=== PATIENT | male | born 1950 | race Caucasian/White ===

== ENCOUNTER 2020-05-28 11:22 | Observation (INO) | payer OTHER, SELFPAY ==
[2020-05-28] VITALS (7 sets, daily range): BP systolic 111–142; BP diastolic 67–95; PULSE 60–80; RESP 18–21; TEMP 36.2–37.1; O2SAT 20–100; BMI 32.4
--- NOTE | ~2020-05-28 | XR_ITS ---
EXAMINATION: XR chest 1V portable DATE: 05/29/2020 06:13 INDICATION: Right-sided pneumothorax. TECHNIQUE: A single frontal view of the chest was obtained. COMPARISON: Chest CT 05/28/2020 FINDINGS: There is mild atelectasis at right lung base. No pleural effusion or pneumothorax. The hear t size is normal. There is an electronic implant in left anterior chest wall. There are changes of an terior fusion procedure in cervical spine. There is a total left shoulder arthroplasty. Again seen is a right seventh rib fracture. IMPRESSION: 1. Mild atelectasis at right lung base. 2. Right seventh rib fracture. Reviewed, dictated and finalized at location A.
--- NOTE | ~2020-05-28 | XR_ITS ---
EXAMINATION: [id number] INDICATION: Right-sided pain after fall, initial encounter TECHNIQUE: A frontal view of the chest and 3 views of the right ribs were obtained. COMPARISON: None. FINDINGS: The lungs are free of acute opacities. There is no pleural effusion or pneumothorax. The he art size is upper limits of normal for technique. A cardiac monitoring device is implanted in the ant erior subcutaneous tissues of the left chest wall. There are acute fractures of the right seventh and eighth ribs. 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 There are changes of l eft shoulder arthroplasty. Also noted are partially imaged changes of thoracic through sacral fusion. IMPRESSION: 1. Acute fractures of the right seventh and eighth ribs. 2. No acute cardiopulmonary abnormality. Reviewed, dictated and finalized at location A.
--- NOTE | ~2020-05-28 | CT_ITS ---
EXAMINATION: CT chest abdomen pelvis w con DATE: 05/28/2020 13:04 INDICATION: Right-sided chest back pain after fall TECHNIQUE: Transaxial computed tomographic images of the chest, abdomen, and pelvis were obtained aft er the administration of 100 cc of Omnipaque 350 intravenous contrast. The dose-length product (DLP) was 1469.80 mGy-cm. Automated exposure control and iterative reconstruction technique were employed. COMPARISON: None FINDINGS: CHEST CT: The lungs are free of focal airspace opacities. There is mild dependent atelectasis. Trace pleural ef fusions are present. There is a small right-sided pneumothorax. No pathologically enlarged thoracic l ymph nodes are identified. The heart size is normal. Calcified pulmonary nodules are consistent with old granulomatous disease. The thoracic aorta is normal without dissection or aneurysm. There are fra ctures at the anterior aspect of the right seventh through ninth ribs. ABDOMEN/PELVIS CT: The gallbladder is surgically absent. Punctate calcifications in an otherwise normal spleen likely re present healed granulomatous disease. The liver, pancreas, and adrenal glands are normal. Cysts of th e kidneys measure up to 5.6 cm on the right. No pathologically enlarged abdominal or pelvic lymph nod es are identified. There is no free intraperitoneal gas or evidence of bowel obstruction. There is a left inguinal hernia containing a short segment of nonobstructed sigmoid colon. There are changes of posterior fusion procedure from T11 through the sacrum. Bilateral hip arthroplasties are also noted. IMPRESSION: 1. Right seventh through ninth rib fractures with small right-sided pneumothorax. These findings were discussed with TONE Kelly in the Emergency Department at 1329 hours on 05/28/2020. 2. Left inguinal hernia containing a short segment of nonobstructed sigmoid colon. Reviewed, dictated and finalized at location A. IMPRESSION: 1. Right seventh through ninth rib fractures with small right-sided pneumothora x. These findings were discussed with TONE Kelly in the Emergency Depart ment at 1329 hours on 05/28/2020. 2. Left inguinal hernia containing a short segment of nonobstructed sigmoid col on.
--- NOTE | ~2020-05-28 | XR_ITS ---
EXAMINATION: XR chest 1V portable DATE: 05/30/2020 15:56 INDICATION: Follow-up pneumothorax TECHNIQUE: frontal view of the chest was obtained. COMPARISON: Chest radiograph dated 05/30/2020 at 5:49 AM FINDINGS: No evident residual pneumothorax. Minimal right basilar atelectasis. No pleural effusion. The cardiom ediastinal silhouette is normal. Left pectoral implantable air sampling and monitoring. Severe right glenohumeral osteoarthritis and incompletely visualized reverse left total shoulder arthroplasty. Bilateral verti james paz and pedicle screw fixation for posterior spinal fusion beginning the lower thoracic spine and extending into the lumbar spine beyond the inferior margin of the [id number]-gv-ponr. IMPRESSION: 1. Mild right basilar atelectasis. No discernible residual pneumothorax. Reviewed, dictated and finalized at location A.
--- NOTE | ~2020-05-28 | XR_ITS ---
EXAMINATION: XR chest 1V portable DATE: 05/31/2020 06:36 INDICATION: Right pneumothorax. TECHNIQUE: A single frontal view of the chest was obtained. COMPARISON: Chest single view 05/30/2020 FINDINGS: The lung volumes are small. There is mild atelectasis in right mid and lower lung zones. Re lative lucency adjacent to the mediastinum on the right is likely a tiny right pneumothorax. No pleur al effusion. The heart size is normal. There is an electronic implant in left anterior chest wall. Th ere is a left shoulder arthroplasty. There are changes of posterior fusion procedure in lumbar spine. IMPRESSION: 1. Tiny right pneumothorax. 2. Small lung volumes mild atelectasis in right mid and lower lung zones. Reviewed, dictated and finalized at location A.
--- NOTE | ~2020-05-28 | XR_ITS ---
EXAMINATION: XR chest 1V portable DATE: 05/30/2020 06:15 INDICATION: Right-sided pneumothorax. TECHNIQUE: A single frontal view of the chest was obtained. COMPARISON: Chest single view 05/29/2020 FINDINGS: There is a tiny right pneumothorax adjacent to the mediastinum. Calcified bilateral lung no dules are consistent with old granulomatous disease. There is mild atelectasis at right lung base. No pleural effusion. The heart size is normal. An electronic implant overlies left chest wall. There is a left shoulder arthroplasty. There are changes of posterior fusion procedure in lumbar spine. Again seen is a fracture of right seventh rib. There are changes of anterior fusion procedure in the cervi james spine. IMPRESSION: 1. Tiny right pneumothorax. 2. Mild atelectasis at right lung base. 3. Right seventh rib fracture. Reviewed, dictated and finalized at location A.
--- NOTE | 2020-05-28 11:40 | ECG_ITS ---
Measurements Intervals [place] Rate: 61 P: 28 WA: 184 QRS: -60 QRSD: 97 T: 29 QT: 383 QTc: 389 Interpretive Statements SINUS RHYTHM LEFT AXIS DEVIATION LOW QRS VOLTAGE IN LIMB LEADS BORDERLINE T WAVE ABNORMALITY- INFERIOR LEADS BASELINE ARTIFACT- I, II, III, AVR, AVL, AVF, V1-V6 BORDERLINE ECG Electronically Signed On 05-28-2020 12:05:32 CDT by Eloy Masters D.O.
[2020-05-28 11:58] LABS: Basophils Percent Auto 0.5 % (0.2-1.2); Eosinophils Percent Auto 0.5 % (0-4.4); Hemoglobin 11.6 g/dL (14.0-18.0); Immature Granulocyte Absolute 0.03 K/mm3 (0.00-0.031); Immature Granulocyte Percent A 0.4 % (0-0.5); Lymphocytes Absolute Auto 1.13 K/mm3 (0.9-3.2); Lymphocytes Percent Auto 13.4 % (18.3-44.2); Mean Corpuscular HGB Conc 30.5 g/dl (32-36); Mean Corpuscular Hemoglobin 22.1 pg (26-34); Mean Corpuscular Volume 72.2 fl (80-100); Mean Platelet Volume 10.2 fl (7.4-10.4); Monocytes Absolute Auto 0.9 K/mm3 (0.1-0.6); Monocytes Percent Auto 10.4 % (2.6-8.5); Neutrophils Absolute Auto 6.3 K/mm3 (1.3-6.7); Neutrophils Percent Auto 74.8 % (45.5-73.1); Platelet Count Result 264 k/mm3 (150-375); Red Blood Count 5.26 M/mm3 (4.6-6.20); White Blood Count 8.5 K/mm3 (4.5-10.0)
[2020-05-28 12:13] LABS: Alanine Aminotransferase 32 U/L (4-50); Albumin Level 4.3 g/dL (3.5-5.1); Alkaline Phosphatase 85 U/L (38-126); Anion Gap 5 mmol/L (8-16); Aspartate Amino Transferase 64 U/L (17-59); Bilirubin,Total 3.5 mg/dL (0.2-1.3); Blood Urea Nitrogen 15 mg/dL (9-20); Calcium 8.7 mg/dL (8.4-10.2); Carbon Dioxide 26 mmol/L (22-30); Chloride 104 mmol/L (98-107); Estimated CRCL calculation 87 ml/min; Estimated Glomerular Filt Rate > 60; Glucose 90 mg/dL (75-110); Potassium 6.4 mmol/L (3.4-5.0); Sodium 135 mmol/L (137-145)
[2020-05-28] MEDS: SODIUM CHLORIDE 0.9% IV 1,000 ML 999 ML IV CONT (12:31)
--- NOTE | 2020-05-28 12:52 | ED.FALL ---
HPI - Fall General Chief Complaint: Fall <KRYSTIN Lipscomb Last Filed: 05/28/20 14:02> Stated Complaint: fall <KRYSTIN Lipscomb Last Filed: 05/28/20 14:02> Time Seen by Provider: 05/28/20 11:55 <KRYSTIN Lipscomb Last Filed: 05/28/20 14:02> Source: patient and family <KRYSTIN Lipscomb Last Filed: 05/28/20 14:02> Mode of arrival: ambulatory <KRYSTIN Lipscomb Last Filed: 05/28/20 14:02> Limitations: no limitations <KRYSTIN Lipscomb Last Filed: 05/28/20 14:02> History of Present Illness HPI Narrative: Patient is a 69-year-old male who presents to emergency department for evaluation of injury to the right chest and abdomen that occurred last night patient got up at 2 AM in the morning to use the restroom and while turning around lost his balance falling into the bathtub injuring the right anterior lateral lower ribs and upper abdomen where he has moderate aching pain worse with activity and movement patient also notes mild pain to the right hip. Patient notes he was able to get up and return to bed. Patient is currently on Eliquis for atrial fibrillation. Patient denies any head injury syncope loss of consciousness. Patient took his home narcotics with some relief. Patient on arrival in the room in no distress <KRYSTIN Lipscomb Last Filed: 05/28/20 14:02> Related Data Home Medications: Home Medications Medication Instructions Recorded Confirmed apixaban [Eliquis] 5 mg PO DAILY 05/28/20 duloxetine 60 mg PO DAILY 05/28/20 pravastatin 20 mg PO DAILY 05/28/20 sotalol 80 mg PO DAILY 05/28/20 zolpidem 10 mg PO DAILY 05/28/20 <KRYSTIN Lipscomb Last Filed: 05/28/20 14:02> Allergies/Adverse Reactions: Allergies Allergy/AdvReac Type Severity Reaction Status Date / Time ketamine AdvReac Severe Other Verified 05/28/20 11:43 <KRYSTIN Lipscomb Last Filed: 05/28/20 14:02> Review of Systems Review of Systems: All systems reviewed & are unremarkable except as noted in HPI and below <Piotr Pardo PA-C - Last Filed: 05/28/20 14:02> [facility] Past Medical History Medical History: Medical History Atrial fibrillation <Piotr Pardo PA-C - Last Filed: 05/28/20 14:02> Social History Social History: Social History (Updated 05/28/20 @ 12:53 by Piotr Pardo PA-C) Smoking status: Never smoker <Piotr Pardo PA-C - Last Filed: 05/28/20 14:02> Exam Narrative: Exam Narrative: GENERAL: Well-appearing, well-nourished, and in no acute distress. HEAD: Normocephalic, atraumatic. EYES: PERRLA and EOMI. ENT: Nares clear, no rhinorrhea or epistaxis. Mucous membranes moist. NECK: Supple. No adenopathy or masses. CHEST: Clear to auscultation. No respiratory distress. No wheezes rales or rhonchi. Tenderness of the anterior lateral ribs no bruising noted HEART: Regular rate and rhythm. No murmur heard. Normal peripheral pulses. ABDOMEN: Soft, right upper quadrant tenderness to palpation no bruising, nondistended EXTREMITIES: Normal range of motion. No edema. Mild tenderness to the right hip. No midline cervical thoracic or lumbar tenderness SKIN: Warm, dry, no rash. NEURO: No focal deficits. Alert and oriented x3. Cranial nerves II through XII grossly intact. Neurovascularly intact PSYCH: Normal mood and affect. <Piotr Pardo PA-C - Last Filed: 05/28/20 14:02> Course Course Emergency Course: Patient in the room at this time, hemodynamically stable will be placed in hospital with surgical consult for small pneumothorax with associated rib fractures. Patient has been given pain medication and is aware of case findings treatment plan and diagnosis <Piotr Pardo PA-C - Last Filed: 05/28/20 14:02> TRANSPORT RN/PA Physician Supervision Attestation for Piotr Pardo at 1400. We discussed the case and the patient
[2020-05-28 12:54] LABS: Creatine Kinase 179 U/L (55-170); Magnesium 2.1 mg/dL (1.6-2.3); Phosphorus 2.9 mg/dL (2.5-4.5)
[2020-05-28] MEDS: SODIUM CHLORIDE 0.9% IV 500 ML 999 ML IV CONT (14:44)
--- NOTE | 2020-05-28 15:15 | ADMGEN ---
This patient, Laz Gunn, was admitted to Medical Room 249-01. Patient/family oriented to hospital policies and general routines including ID bracelet, bed and alarms, visiting hours, pain management, procedures, bathroom and other care routines, personal items, smoking policy, room service/diet, and visiting hours. Valuables list has been completed. Information on how to activate the Rapid Response Team has been discussed. Patient/Family are encouraged to report perceived risks to care and to ask questions if they do not understand what they are told or what they should do.
[2020-05-28] MEDS: LACTATED RINGERS 1,000 ML 80 ML IV CONT (16:31)
--- NOTE | 2020-05-28 22:38 | PM.IMHP ---
H&P: HPI History of Present Illness Date/Time: 05/28/20 22:38 Chief complaint: Right rib fracture, pneumothorax Narrative: Laz Gunn is a 69 year old male who has a past medical history of atrial fibrillation with cardioversion and ablation. He is on Eliquis for his AFib. The patient stated that he was up around 2:00 a.m. this morning go to the bathroom and he went to the bathroom in the dark and got turned around the bathroom lost his balance found the shower. Landed on his right side. He was having some right anterior lateral rib pain but got back into bed and then when he woke up this morning is having a lot of discomfort. 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 He did not have any chest pain or palpitations other than where he fell and hit the right side. He came to the emergency room to be evaluated. He is on room air he is not short of breath. No fever no chills. He did not lose consciousness he did not hit his head. No bruising is noted. Chest abdomen pelvis CT was read as right 7th through 9th rib fracture with small right sided pneumothorax. Left inguinal hernia continue a short segment of nonobstructive sigmoid colon. Surgery had been consulted. The patient was given an incentive spirometer. He was started on IV fluids, started on IV Tylenol, [place], and IV morphine. Patient stated that the pain is tolerable and that the pills helped. I spent approximately 40 minutes with the patient. Date of service 05/28/2020. Review of Systems Review of Systems: All systems reviewed & are unremarkable except as noted in HPI and below Constitutional: Constitutional: Reports as per HPI and Reports no additional constitutional complaints Eyes: Eyes: Reports as per HPI and Reports no additional eye complaints ENT: Reports system reviewed and no additional complaints, except as documented and Reports Normal hearing present Cardiovascular: Cardiovascular: Reports no additional cardiovascular complaints Respiratory: Respiratory: Reports no additional respiratory complaints and Reports no additional respiratory complaints Gastrointestinal: Gastrointestinal: Reports as per HPI and Reports no additional gastrointestinal complaints Musculoskeletal: Musculoskeletal: Reports no additional musculoskeletal complaints Integumentary/Breasts: Skin/Breast: Reports system reviewed and no additional complaints, except as docu and Reports as per HPI Neurologic: Reports system reviewed and no additional complaints, except as documented, Reports as per HPI and Reports Normal hearing present Psychiatric: Psychiatric: Reports no additional psychiatric complaints and Reports as per HPI Endocrine: Endocrine: Reports no additional endocrine complaints Hematologic/Lymphatic: Hematologic/Lymphatic: Reports no additional hematologic/lymphatic complaints Allergic/Immunologic: Allergic/Immunologic: Reports no additional allergic/immunologic complaints [facility] Past Medical History Medical History (Updated 05/28/20 @ 22:58 by Eden Skelton NP) Atrial fibrillation Cardiomyopathy History of cardioversion Hyperlipidemia Neuropathy Surgical History Surgical History (Updated 05/28/20 @ 22:44 by Eden Skelton NP) H/O cardiac radiofrequency ablation History of loop recorder It is nonfunctioning but he still has it inside of him. 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 The right when was done twice because it was popping out of the socket and he has a left 1 done once Family History Family History Father Lung cancer Mother COPD (chronic obstructive pulmonary disease) Cardiomyopathy Heart valve insufficiency Asthma Sibling H/O heart artery stent Obese Social History Social History (Updated 05/28/20 @ 12:53 by Piotr Ohara
[2020-05-29] VITALS (11 sets, daily range): BP systolic 104–120; BP diastolic 63–72; PULSE 53–70; RESP 12–20; TEMP 36.2–36.9; O2SAT 98–100
[2020-05-29] MEDS: ZOLPIDEM TARTRATE 5 MG TABLET 10 MG PO ×2 (00:42→21:49)
[2020-05-29] MEDS: FAMOTIDINE 20 MG/2 ML VIAL IV PUSH ×2 (00:43→08:40)
[2020-05-29] MEDS: MORPHINE SULFATE 2 MG/ML INJ IV PUSH (00:54)
--- NOTE | 2020-05-29 01:18 | PC.NURSE ---
2100 famotidine received from pharmacy at 0037
[2020-05-29 05:48] LABS: Hematocrit 30.9 % (42.0-52.0); Hemoglobin 9.4 g/dL (14.0-18.0); Mean Corpuscular HGB Conc 30.4 g/dl (32-36); Mean Corpuscular Hemoglobin 22.1 pg (26-34); Mean Corpuscular Volume 72.7 fl (80-100); Mean Platelet Volume 10.5 fl (7.4-10.4); Platelet Count Result 219 k/mm3 (150-375); Red Blood Count 4.25 M/mm3 (4.6-6.20); Red Cell Distribution Width 19.7 % (11.5-14.5); White Blood Count 4.8 K/mm3 (4.5-10.0)
[2020-05-29 06:17] LABS: Anion Gap 3 mmol/L (8-16); Blood Urea Nitrogen 13 mg/dL (9-20); Calcium 8.1 mg/dL (8.4-10.2); Carbon Dioxide 25 mmol/L (22-30); Chloride 107 mmol/L (98-107); Estimated CRCL calculation 100 ml/min; Estimated Glomerular Filt Rate > 60; Glucose 86 mg/dL (75-110); Potassium 3.9 mmol/L (3.4-5.0); Sodium 135 mmol/L (137-145)
[2020-05-29] MEDS: PRAVASTATIN SODIUM 20 MG TABLET PO (08:40)
[2020-05-29] MEDS: SOTALOL HCL 80 MG TABLET PO (08:40)
[2020-05-29] MEDS: DULoxetine HCL 60 MG CAPSULE.DR PO (08:40)
[2020-05-29] MEDS: APIXABAN 5 MG TABLET PO ×2 (08:41→16:59)
--- NOTE | 2020-05-29 11:29 | PM.IMPN ---
Progress Note: A&P Assessment and Plan (1) Pneumothorax: Code(s): J93.9 - Pneumothorax, unspecified Status: Acute Assessment and Plan: As evident on CT of the chest yesterday; small in size. General Surgery has been consulted and appreciate recommendations. Will await further recommendations Continue IS Monitor (2) Closed rib fracture: Code(s): S22.39XA - Fracture of one rib, unspecified side, initial encounter for closed fracture Status: Acute Assessment and Plan: As evident on CT/xray imaging. Pain is manageable Continue with pain management Discussed possibly d/c francesien as this may put him at increased fall risk; states he has been taking this for years and will discuss with PCP. Melatonin does not work for him Follow up with PCP (3) Atrial fibrillation: Code(s): I48.91 - Unspecified atrial fibrillation Status: Chronic Assessment and Plan: Patient is on Eliquis. He is also on sotalol. HR controlled. He has had an ablation and cardioversion in the past. He is in sinus rhythm. Continue home medications Monitor (4) Cardiomyopathy: Code(s): I42.9 - Cardiomyopathy, unspecified Status: Chronic Assessment and Plan: Appears to be well compensated. No acute issues Continue home medications (5) Hyperlipidemia: Code(s): E78.5 - Hyperlipidemia, unspecified Status: Chronic Assessment and Plan: Continue with pravastatin. (6) Neuropathy: Code(s): G62.9 - Polyneuropathy, unspecified Status: Chronic Assessment and Plan: Continue with duloxetine. Subjective Date/time seen: 05/29/20 11:29 Interval history: Patient is a 69 yo M with history of a. fib (on Eliquis, sotalol for rate control, h/o cardioversion), cardiomyopathy, and peripheral neuropathy who is here for management of small traumatic pneumothorax. Patient states he is doing okay today. Right chest pain is reasonable. He just complains of worsened pain when lying on his right side at night for sleep. No other complaints at the moment. States he lost his footing when he fell; no dizziness/lightheadedness, symptoms of syncope/presyncope. Tolerating diet okay. Denies f/c/s, headaches, dizziness, lightheadedness (particularly when he fell), palpitations, sob/cough, n/v/d/c, abd pain, changes in BMs, dysuria, hematuria, cloudy urine, calf pain/swelling. Review of Systems Review of Systems: All systems reviewed & are unremarkable except as noted in HPI and below Exam Narrative: Exam Narrative: General: Patient sitting upright in chair no acute distress. HEENT: Normocephalic, EOMI, oral mucosa moist. Cardiovascular: Rate and rhythm are regular. No notable murmur, rub, or gallop. Pain to palpation on right anterior/lateral chest Respiratory: Lungs clear to auscultation all [place]. Non-labored breathing. Abdomen: Soft, non-tender, non-distended, bowel sounds present. Extremities: Peripheral pulses intact. No edema. Neuro: No focal neurological deficits. Speech is clear. Tele shows sinus rhythm with occasional PVCs; asymptomatic Objective Data Vital Signs Vital Signs: Last Vital Signs Temp 97.1 F L 05/29/20 06:00 Pulse 69 05/29/20 09:20 Resp 20 05/29/20 09:20 BP 104/63 05/29/20 06:00 Pulse Ox 98 05/29/20 09:20 Intake/Output Intake/Output: Intake & Output 05/26/20 05/27/20 05/28/20 05/29/20 23:59 23:59 23:59 23:59 Intake Total 1590 1280 Output Total 200 600 Balance 1390 680 Meds/Results Medications: Active Medications Generic Name Dose Route Start Last Admin Trade Name Freq PRN Reason Stop Dose Admin Acetaminophen 500 mg 05/28/20 20:22 Tylenol Tablet PO Q6H PRN Mil
--- NOTE | 2020-05-29 11:51 | PCOTNOTE ---
Attempted OT evaluation on this date. Awaiting surgical consult to be completed. Will attempt OT evaluation when medically appropriate.
--- NOTE | 2020-05-29 11:54 | PCPTNOTE ---
Attempted PT evaluation on this date. Awaiting surgical consult to be completed. Will attempt PT evaluation when medically appropriate.
[2020-05-29] MEDS: ACETAMINOPHEN 500 MG TABLET PO (14:21)
--- NOTE | 2020-05-29 15:44 | PCPTNOTE ---
Cande, charge nurse, called and informed therapy that MD states it is safe to see patient.
--- NOTE | 2020-05-29 16:23 | PM.CNGS ---
Assessment and Plan Assessment and plan (1) Multiple fractures of ribs of right side: Code(s): S22.41XA - Multiple fractures of ribs, right side, initial encounter for closed fracture Status: Acute Assessment and Plan: patient needs to try oral analgesics and be comfortable on oral analgesics before discharge. Okay to begin physical therapy and occupational therapy as I think he is at high risk for falling again should he go home right away. I would also get a Trap[employer]ase set up in his bed so he can move himself more easily. No need to stop anticoagulation. No evidence of hemo thorax. Will follow along with you. (2) Pneumothorax: Code(s): J93.9 - Pneumothorax, unspecified Status: Acute Assessment and Plan: Very tiny and only seen on CT scan. Unlikely to develop in to significant pneumothorax. Will repeat chest x-ray again tomorrow. Okay to begin PT, OT, and ambulation. (3) Atrial fibrillation: Code(s): I48.91 - Unspecified atrial fibrillation Status: Chronic Assessment and Plan: sinus rhythm on EKG yesterday. Continue home meds (4) Chronic anticoagulation: Code(s): Z79.01 - manager terminal (current) use of anticoagulants Status: Acute Assessment and Plan: okay to continue anticoagulation with apixaban from my perspective. History of Present Illness Consult details Consult date: 05/29/20 Reason for consult: other ( Fractured ribs, pneumothorax) Narrative: the patient is a 69-year-old gentleman who is on Eliquis for atrial fibrillation. He was admitted yesterday through the emergency room. Early yesterday morning about 2:00 a.m. he got up to urinate. He got turned around in the bathroom and fell striking his right anterolateral chest on the bathtub. This was kind of sore but not so bad that he could go back to sleep. When he got up yesterday morning however he had more aching pain in the right chest. The patient came to the emergency room at [facility] for evaluation. He was noted to have tenderness in the anterolateral chest. Chest x-ray did not show a pneumothorax. However on CT scan he was found to have fractures of the anterolateral aspect of ribs 7 8 and 9 as well as a tiny apical pneumothorax. There was no hemo thorax. I was asked to see the patient regarding his pneumothorax. He is being admitted to the hospitalist for pain management and observation due to his anticoagulation, fractured ribs, and potential for further injury should he go directly home. This morning when I saw him, he was still having quite a bit of pain in the right anterolateral chest. He had taken IV morphine for this last night which did help. He has not tried on oral pain medication. He is not complaining of any shortness of breath or trouble breathing. He did have a chest x-ray early this morning which I reviewed myself. There was no evidence of a pneumothorax or new accumulation of fluid in the right chest. The patient is seen now in consultation regarding his right chest injury as well as pneumothorax. Review of Systems Review of Systems: All systems reviewed & are unremarkable except as noted in HPI and below Constitutional: Constitutional: Reports body ache(s), Denies chills, Denies fever(s), Denies headache(s), Denies night sweats and Denies poor appetite Cardiovascular: Cardiovascular: Denies chest pain, Denies diaphoresis, Denies rapid heart rate, Reports irregular heart rhythm, Denies palpitations, Denies dyspnea and Denies paroxysmal nocturnal dyspnea Respiratory: Respiratory: Denies chest congestion, Denies cough, Denies hemoptysis, Reports pain on inspiration and Denies dyspnea Gastrointestinal: Gastrointestinal: Denies abdominal pain, Denies GI cramping, Denies nausea and Denies vomiting Integumentary/Breasts: Skin/Breast: Denies lesions and Denies rash Neurologic: Denies confusion, Denies syncope, Reports lack of coordination, Denies focal weakness, Denies convul
[2020-05-30] VITALS (9 sets, daily range): BP systolic 118–124; BP diastolic 66–77; PULSE 54–92; RESP 12–20; TEMP 36.6–37.2; O2SAT 96–99
[2020-05-30 05:08] LABS: Hematocrit 30.9 % (42.0-52.0); Hemoglobin 9.3 g/dL (14.0-18.0); Mean Corpuscular HGB Conc 30.1 g/dl (32-36); Mean Corpuscular Hemoglobin 21.7 pg (26-34); Mean Platelet Volume 9.8 fl (7.4-10.4); Platelet Count Result 202 k/mm3 (150-375); Red Blood Count 4.29 M/mm3 (4.6-6.20); Red Cell Distribution Width 19.6 % (11.5-14.5); White Blood Count 4.2 K/mm3 (4.5-10.0)
[2020-05-30 05:59] LABS: Anion Gap 3 mmol/L (8-16); Blood Urea Nitrogen 13 mg/dL (9-20); Calcium 8.3 mg/dL (8.4-10.2); Carbon Dioxide 27 mmol/L (22-30); Chloride 106 mmol/L (98-107); Estimated CRCL calculation 88 ml/min; Estimated Glomerular Filt Rate > 60; Glucose 87 mg/dL (75-110); Magnesium 2.1 mg/dL (1.6-2.3); Potassium 3.7 mmol/L (3.4-5.0); Sodium 136 mmol/L (137-145)
--- NOTE | 2020-05-30 08:05 | PM.PNGS ---
Progress Note: A&P Assessment and Plan (1) Pneumothorax: Code(s): J93.9 - Pneumothorax, unspecified Status: Acute Assessment and Plan: Although still small and asymptomatic, pneumothorax is larger on this morning's chest x-ray. Will repeat the chest x-ray this afternoon and again in a.m.. If stable, patient can probably go home tomorrow. (2) Multiple fractures of ribs of right side: Code(s): S22.41XA - Multiple fractures of ribs, right side, initial encounter for closed fracture Status: Acute Assessment and Plan: Pain is less than yesterday and patient fairly comfortable on oral analgesics. (3) Chronic anticoagulation: Code(s): Z79.01 - group home (current) use of anticoagulants Status: Acute Assessment and Plan: No evidence of intrathoracic bleeding. Subjective Subjective Date/Time Seen: 05/30/20 08:05 Patient reports: feels better, afebrile and other ( Less pain today, able to get up and move around more.) Review of Systems Review of Systems: All systems reviewed & are unremarkable except as noted in HPI and below Constitutional: Constitutional: Denies headache(s) Cardiovascular: Cardiovascular: Denies rapid heart rate, Denies lightheadedness and Denies dyspnea Respiratory: Respiratory: Denies cough, Denies dyspnea and Denies dyspnea on exertion Gastrointestinal: Gastrointestinal: Reports as per HPI Neurologic: Denies confusion and Denies headache(s) Exam Const: General: comfortable and no acute distress; No confusion Orientation/consciousness: patient oriented x3 and No confusion Chest: Chest palpation & inspection: localized rib tenderness with anteroposterior compression ( Less tender than yesterday.) Resp: Effort & Inspection: normal respiratory effort Auscultation: clear to auscultation bilaterally Neuro: General: patient oriented x3, no focal motor deficits and No confusion Extrem: General: no calf tenderness and no edema Psych: Affect: normal affect Insight: Good insight present (Psych) Judgement: Good judgement present (Psych) Objective Data Vital Signs Vital Signs: Vital Signs - 24 hr 05/29/20 08:40 05/29/20 09:20 05/29/20 12:00 Temperature Pulse Rate 69 69 70 Respiratory Rate 20 Blood Pressure Pulse Oximetry 98 05/29/20 14:00 05/29/20 16:04 08/18/20 20:00 Temperature 36.6 C Pulse Rate 54 L 59 L 54 L Respiratory Rate 20 12 Blood Pressure 116/72 Pulse Oximetry 99 100 05/29/20 21:08 05/30/20 00:05 05/30/20 04:00 Temperature 36.9 C Pulse Rate 54 L 56 L 55 L Respiratory Rate 12 Blood Pressure 120/72 Pulse Oximetry 100 05/30/20 06:00 Temperature 36.6 C Pulse Rate 57 L Respiratory Rate 12 Blood Pressure 118/66 Pulse Oximetry 99 Intake/Output Intake/Output: Intake & Output 05/27/20 05/28/20 05/29/20 05/30/20 23:59 23:59 23:59 23:59 Intake Total 1590 2235 250 Output Total 200 600 Balance 1390 1635 250 Meds/Results Medications: Active Medications Generic Name Dose Route Start Last Admin Trade Name Freq PRN Reason Stop Dose Admin Acetaminophen 500 mg 05/28/20 20:22 05/29/20 14:21 Tylenol Tablet PO 500 mg Q6H PRN Administration Mild Pain (1-3) or Fever Hydrocodone Bitart/Acetaminophen 1 tab 05/28/20 20:22 05/28/20 21:14 [place] 5-325 Mg PO 1 tab Q4H PRN Administration Pain Rated 4-6 Hydrocodone Bitart/Acetaminophen 1 tab 05/29/20 16:41 05/29/20 21:49 [place] 10-325 Mg PO 1 tab Q6H PRN Administration Pain Rated 7-10 Apixaban 5 mg 05/29/20 09:00 05/29/20 16:59 Eliquis PO 5 mg BID MICHAEL Administration Duloxetine HCl 60 mg 05/29/20 09:00 05/29/20 08:40 Cymbalta PO 60 mg DAILY MICHAEL Administration Morphine Sulfate 2 mg 05/29/20 00:50 05/29/20 00:54 Morphine Sulfate Inj IV PUSH 2 mg Q2H PRN Administration Pain Rated 7-10 Morphine Sulfate 1 mg 05/29/20 16:41 Morphine Sulfate I
[2020-05-30] MEDS: APIXABAN 5 MG TABLET PO ×2 (09:50→17:39)
[2020-05-30] MEDS: PRAVASTATIN SODIUM 20 MG TABLET PO (09:50)
[2020-05-30] MEDS: SOTALOL HCL 80 MG TABLET PO (09:50)
[2020-05-30] MEDS: DULoxetine HCL 60 MG CAPSULE.DR PO (09:50)
--- NOTE | 2020-05-30 12:40 | PM.IMPN ---
Progress Note: A&P Assessment and Plan (1) Pneumothorax: Code(s): J93.9 - Pneumothorax, unspecified Status: Acute Assessment and Plan: As evident on CT of the chest earlier in stay and on today's CXR; small in size. General Surgery has been consulted and appreciate recommendations. Will have CXR this afternoon and tomorrow am per General Surgery Continue IS Monitor Await further rec from General surgery (2) Closed rib fracture: Code(s): S22.39XA - Fracture of one rib, unspecified side, initial encounter for closed fracture Status: Acute Assessment and Plan: As evident on CT/xray imaging. Pain is manageable Continue with pain management Discussed possibly kia/alvin das as this may put him at increased fall risk; states he has been taking this for years and will discuss with PCP. He states melatonin does not work for him Follow up with PCP (3) Atrial fibrillation: Code(s): I48.91 - Unspecified atrial fibrillation Status: Chronic Assessment and Plan: Patient is on Eliquis. He is also on sotalol. HR controlled. He has had an ablation and cardioversion in the past. He is in sinus rhythm. Continue home medications Monitor (4) Cardiomyopathy: Code(s): I42.9 - Cardiomyopathy, unspecified Status: Chronic Assessment and Plan: Appears to be well compensated. No acute issues Continue home medications (5) Hyperlipidemia: Code(s): E78.5 - Hyperlipidemia, unspecified Status: Chronic Assessment and Plan: Continue with pravastatin. (6) Neuropathy: Code(s): G62.9 - Polyneuropathy, unspecified Status: Chronic Assessment and Plan: Continue with duloxetine. (7) Anemia: Code(s): D64.9 - Anemia, unspecified Status: Acute Assessment and Plan: Microcytic. Hgb stable at 9.3. Unclear baseline. No s/sx of acute blood loss Will do iron panel tomorrow Monitor closely Consider iron supplementation pending results Further f/u and management with his PCP after discharge Additional Plan Hyperkalemia now resolved. Subjective Date/time seen: 05/30/20 12:40 Interval history: Patient is a 69 yo M with history of a. fib (on Eliquis, sotalol for rate control, h/o cardioversion), cardiomyopathy, and peripheral neuropathy who is here for management of small traumatic pneumothorax. Patient states he is doing okay again today. Right chest pain is better today; mainly pain with coughing/sneezing/straining or when lying on right side at night. No other complaints at the moment. No BMs today, but passing flatus. Tolerating diet okay. Denies f/c/s, headaches, dizziness, lightheadedness (particularly when he fell), palpitations, sob/cough, n/v/d/c, abd pain, changes in BMs, dysuria, hematuria, cloudy urine, calf pain/swelling. Review of Systems Review of Systems: All systems reviewed & are unremarkable except as noted in HPI and below Exam Narrative: Exam Narrative: General: Patient sitting upright in bed no acute distress. HEENT: Normocephalic, EOMI, oral mucosa moist. Cardiovascular: Rate and rhythm are regular. No notable murmur, rub, or gallop. Respiratory: Lungs clear to auscultation all [place]. Non-labored breathing. Abdomen: Soft, non-tender, non-distended, bowel sounds present; hypoactive. Extremities: Peripheral pulses intact. No edema. Neuro: No focal neurological deficits. Speech is clear. Tele shows sinus rhythm with occasional PVCs; asymptomatic Objective Data Vital Signs Vital Signs: Last Vital Signs Temp 97.8 F 05/30/20 06:00 Pulse 54 L 05/30/20 12:00 Resp 16 05/30/20 09:50 BP 118/66 05/30/20 06:00 Pulse Ox 99
[2020-05-30] MEDS: ZOLPIDEM TARTRATE 5 MG TABLET 10 MG PO (21:44)
[2020-05-31] VITALS: PULSE 58
[2020-05-31 04:00] VITALS: BP 130/64; PULSE 52; PULSE 57; RESP 18; TEMP 36.1; O2SAT 100
[2020-05-31 05:51] LABS: Hematocrit 30.7 % (42.0-52.0); Hemoglobin 9.4 g/dL (14.0-18.0); Mean Corpuscular HGB Conc 30.6 g/dl (32-36); Mean Corpuscular Hemoglobin 21.9 pg (26-34); Mean Corpuscular Volume 71.4 fl (80-100); Mean Platelet Volume 9.7 fl (7.4-10.4); Platelet Count Result 214 k/mm3 (150-375); Red Cell Distribution Width 19.5 % (11.5-14.5); White Blood Count 4.3 K/mm3 (4.5-10.0)
[2020-05-31 06:09] LABS: Anion Gap 4 mmol/L (8-16); Blood Urea Nitrogen 11 mg/dL (9-20); Calcium 8.5 mg/dL (8.4-10.2); Carbon Dioxide 26 mmol/L (22-30); Chloride 106 mmol/L (98-107); Estimated CRCL calculation 100 ml/min; Estimated Glomerular Filt Rate > 60; Glucose 86 mg/dL (75-110); Magnesium 2.1 mg/dL (1.6-2.3); Potassium 3.7 mmol/L (3.4-5.0); Sodium 136 mmol/L (137-145)
[2020-05-31 07:02] LABS: Iron < 10 ug/dL (49-181)
[2020-05-31 07:38] LABS: Ferritin 8.78 ng/mL (11.1-264)
[2020-05-31 07:56] LABS: Percent Iron Saturation < 3 % (20-50)
[2020-05-31 08:00] VITALS: PULSE 64
--- NOTE | 2020-05-31 08:23 | PM.PNGS ---
Progress Note: A&P Assessment and Plan (1) Pneumothorax: Code(s): J93.9 - Pneumothorax, unspecified Status: Acute Assessment and Plan: okay to discharge from surgical standpoint. Will repeat chest x-ray on Thursday as an outpatient. I will see him again in 1 week in follow-up. (2) Multiple fractures of ribs of right side: Code(s): S22.41XA - Multiple fractures of ribs, right side, initial encounter for closed fracture Status: Acute Assessment and Plan: Pain controlled well with oral analgesics. (3) Chronic anticoagulation: Code(s): Z79.01 - jail (current) use of anticoagulants Status: Acute Assessment and Plan: Continue anticoagulation. (4) Inguinal hernia of left side without obstruction or gangrene: Code(s): K40.90 - Unilateral inguinal hernia, without obstruction or gangrene, not specified as recurrent Status: Acute Assessment and Plan: Plan for patient to have elective outpatient surgery for symptomatic left inguinal hernia sometime in the next 3-4 weeks after he has recovered more from his rib fractures and pneumothorax. Subjective Subjective Date/Time Seen: 05/31/20 08:23 Patient reports: feels better and pain is less Interval history: feels better. Walking with little difficulty. Pain is very tolerable on oral analgesics. Review of Systems Review of Systems: All systems reviewed & are unremarkable except as noted in HPI and below Constitutional: Constitutional: Denies chills, Denies fever(s) and Denies night sweats Respiratory: Respiratory: Denies cough, Denies hemoptysis, Reports pain with cough and Denies dyspnea Neurologic: Denies confusion and Denies headache(s) Psychiatric: Psychiatric: Denies confusion Exam Const: General: comfortable and no acute distress; No confusion Orientation/consciousness: patient oriented x3 and No confusion Chest: Chest palpation & inspection: localized rib tenderness with anteroposterior compression ( Much better.) Resp: Effort & Inspection: normal respiratory effort Auscultation: clear to auscultation bilaterally Neuro: General: patient oriented x3, no focal motor deficits and No confusion Extrem: General: no calf tenderness and no edema Psych: Affect: normal affect Insight: Good insight present (Psych) Judgement: Good judgement present (Psych) Objective Data Vital Signs Vital Signs: Vital Signs - 24 hr 05/30/20 09:50 05/30/20 12:00 05/30/20 14:00 Temperature 36.7 C Pulse Rate 61 54 L 58 L Respiratory Rate 16 17 Blood Pressure 121/76 Pulse Oximetry 99 96 05/30/20 16:00 05/30/20 20:00 05/31/20 00:00 Temperature 37.2 C Pulse Rate 57 L 65 58 L Respiratory Rate 20 Blood Pressure 124/77 Pulse Oximetry 98 05/31/20 04:00 Temperature 36.1 C L Pulse Rate 57 L Respiratory Rate 18 Blood Pressure 130/64 Pulse Oximetry 100 Intake/Output Intake/Output: Intake & Output 05/28/20 05/29/20 05/30/20 05/31/20 23:59 23:59 23:59 23:59 Intake Total 1590 2235 1420 100 Output Total 200 600 Balance 1390 1635 1420 100 Meds/Results Medications: Active Medications Generic Name Dose Route Start Last Admin Trade Name Freq PRN Reason Stop Dose Admin Acetaminophen 500 mg 05/28/20 20:22 05/29/20 14:21 Tylenol Tablet PO 500 mg Q6H PRN Administration Mild Pain (1-3) or Fever Hydrocodone Bitart/Acetaminophen 1 tab 05/28/20 20:22 05/30/20 21:43 [place] 5-325 Mg PO 1 tab Q4H PRN Administration Pain Rated 4-6 Hydrocodone Bitart/Acetaminophen 1 tab 05/29/20 16:41 05/29/20 21:49 [place] 10-325 Mg PO 1 tab Q6H PRN Administration Pain Rated 7-10 Apixaban 5 mg 05/29/20 09:00 05/30/20 17:39 Eliquis PO 5 mg BID MICHAEL Administration Duloxetine HCl 60 mg 05/29/20 09:00 05/30/20 09:50 Cymbalta PO 60 mg DAILY MICHAEL Administration Morphine Sulfate 2 mg 05/29/20 00:50 05/29/20 00:54 Morphine Gonsalez
[2020-05-31 09:41] VITALS: PULSE 56
[2020-05-31] MEDS: SOTALOL HCL 80 MG TABLET PO (09:41)
[2020-05-31] MEDS: DULoxetine HCL 60 MG CAPSULE.DR PO (09:42)
[2020-05-31] MEDS: APIXABAN 5 MG TABLET PO (09:42)
[2020-05-31] MEDS: PRAVASTATIN SODIUM 20 MG TABLET PO (09:42)
[2020-05-31] MEDS: IRON SUCROSE COMPLEX 200 MG in SODIUM CHLORIDE 0.9% IV 50 ML 120 MG IVPB (10:47)
[2020-05-31 12:00] VITALS: PULSE 58
--- NOTE | 2020-05-31 14:04 | PM.DS ---
DS: Admitting Diagnosis Admitting Diagnosis Admitting Diagnosis: Right rib fracture, pneumothorax DS: Discharge Diagnosis Discharge Diagnosis (1) Pneumothorax: Qualifiers: Pneumothorax type: traumatic Encounter type: initial encounter Qualified Code(s): S27.0XXA - Traumatic pneumothorax, initial encounter Code(s): J93.9 - Pneumothorax, unspecified Status: Acute Assessment and Plan: Evident on CT of the chest 05/28, small in size. Repeat CXR 05/31 showed tiny pneumothorax. He was seen in consultation by general surgery. Incentive spirometry encourged. He will obtain repeat CXR as an outpatient on 06/04 and follow up with Dr. Garcia in 1 week. (2) Closed rib fracture: Qualifiers: Encounter type: initial encounter Rib fracture type: multiple ribs Laterality: right Qualified Code(s): S22.41XA - Multiple fractures of ribs, right side, initial encounter for closed fracture Code(s): S22.39XA - Fracture of one rib, unspecified side, initial encounter for closed fracture Status: Acute Assessment and Plan: Secondary to fall. x-ray showed acute fractures of right 7th and 8th ribs. CT chest showed right 7th-9th rib fractures. his pain was managed with oral analgesics. Given very short course of p.o. [place] to take at home. Repeat CXR. (3) Fall: Qualifiers: Encounter type: initial encounter Qualified Code(s): W19.XXXA - Unspecified fall, initial encounter Code(s): W19.XXXA - Unspecified fall, initial encounter Status: Acute Assessment and Plan: Patient had a mechanical, ground level fall at night while ambulating to the bathroom. He reports it was dark and he lost his footing. He did not feel dizzy or lightheaded. He did not lose consciousness. He was evaluated by PT and OT and no additional assistance was required. Discontinuation of zolpidem was discussed given his fall occurred upon awakening from sleep, and patient will discuss this further with his PCP. (4) Atrial fibrillation: Code(s): I48.91 - Unspecified atrial fibrillation Status: Chronic Assessment and Plan: Patient is on Eliquis. He is also on sotalol. HR controlled. He has had an ablation and cardioversion in the past. He remained in sinus rhythm. (5) Cardiomyopathy: Code(s): I42.9 - Cardiomyopathy, unspecified Status: Chronic Assessment and Plan: Well compensated. No acute issues. Continue home medications (6) Hyperlipidemia: Code(s): E78.5 - Hyperlipidemia, unspecified Status: Chronic Assessment and Plan: Continue with pravastatin. (7) Neuropathy: Code(s): G62.9 - Polyneuropathy, unspecified Status: Chronic Assessment and Plan: Continue with duloxetine. (8) Anemia: Qualifiers: Anemia type: iron deficiency Iron deficiency anemia type: unspecified iron deficiency Qualified Code(s): D50.9 - Iron deficiency anemia, unspecified Code(s): D64.9 - Anemia, unspecified Status: Acute Assessment and Plan: Microcytic. H&H remained stable. Vitals were stable and he had no evidence of active bleeding. Iron panel performed revealed significant iron deficiency. He received IV iron infusion x1. He will continue p.o. iron supplementation. He was encouraged to discuss this with his PCP. He may benefit from continued iron infusions. 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 he woke in the middle of the night to walk to the bathroom, lost his balance, and fell into the edge of the bathtub, causin
== END 2020-05-31 14:41 | disposition home or self-care (01) ==
LOC: ANHED 13:55 → ANH2MED 14:58
PROVIDERS: Emergency Medicine Emergency Medical Services; Physician Assistant; Surgery; Admitting Provider Internal Medicine; Emergency Provider Emergency Medicine; PCP Internal Medicine; Visit Provider Physician Assistant
DX: S22.41XA Multiple fractures of ribs, right side, initial encounter for closed fracture (principal); S27.0XXA Traumatic pneumothorax, initial encounter; I48.91 Unspecified atrial fibrillation; I42.9 Cardiomyopathy, unspecified; E78.5 Hyperlipidemia, unspecified; G62.9 Polyneuropathy, unspecified; D50.9 Iron deficiency anemia, unspecified; W18.2XXA Fall in (into) shower or empty bathtub, initial encounter; Z79.01 Long term (current) use of anticoagulants; Z96.611 Presence of right artificial shoulder joint; Z96.643 Presence of artificial hip joint, bilateral
CPT/HCPCS: 36415; 71045; 71101; 71260; 74177; 80048; 80053; 82550; 82728; 83540; 83550; 83735; 84100; 84132; 85025; 85027; 93005; 96361; 96365; 96367; 96375; 96376; 97161; 97165; 99291; A9270; G0378; J0131; J1756; J2270; J7030; J7040; J7120; Q9967

== ENCOUNTER 2020-06-04 13:47 | Outpatient (CLI) | payer OTHER, SELFPAY ==
--- NOTE | ~2020-06-04 | XR_ITS ---
EXAMINATION: XR chest 2V DATE: 06/04/2020 14:13 INDICATION: Pneumothorax. TECHNIQUE: Frontal and lateral views of the chest were obtained. COMPARISON: Chest single view 05/31/2020, chest CT 05/28/2020 FINDINGS: There is a small right pleural effusion. Calcified pulmonary nodules and calcified hilar ly mph nodes are consistent with old granulomatous disease. No pneumothorax. The heart size is normal. T here is an electronic implant in left anterior chest wall. There is a left shoulder arthroplasty. The re are changes of posterior fusion procedure in thoracic and lumbar spine. There are changes of anter ior fusion procedure in cervical spine and lumbar spine. IMPRESSION: 1. No pneumothorax. 2. Small right pleural effusion. Reviewed, dictated and finalized at location B.
== END 2020-06-04 13:48 | disposition home or self-care (01) ==
LOC: ANHIMG 13:50
PROVIDERS: PCP Internal Medicine; Visit Provider Surgery
DX: J93.9 Pneumothorax, unspecified (principal); J90 Pleural effusion, not elsewhere classified
CPT/HCPCS: 71046

== ENCOUNTER 2020-08-08 01:38 | Outpatient (CLI) | payer OTHER, SELFPAY ==
[2020-08-08 18:18] LABS: SARS-CoV-2 RNA PCR Negative
== END 2020-08-08 01:39 | disposition home or self-care (01) ==
LOC: ANHCOVIDDT 01:38
PROVIDERS: PCP Internal Medicine; Visit Provider Surgery
DX: Z01.812 Encounter for preprocedural laboratory examination (principal); Z20.828 Contact with and (suspected) exposure to other viral communicable diseases
CPT/HCPCS: 87635; C9803; U0003

== ENCOUNTER 2020-08-10 00:59 | Day surgery (SDC) | payer OTHER, SELFPAY ==
[2020-06-22 12:43] VITALS: BMI 29.4
[2020-08-02 09:37] VITALS: BMI 29.4
--- NOTE | 2020-08-08 17:21 | PM.SD ---
Same Day Admit/Disch: HPI History of Present Illness Chief complaint: left inguinal hernia Narrative: Laz Gunn is a 70 year old male who I met initially in May. He had fallen at home and fractured several ribs on the right side as a well as developing a tiny apical pneumothorax. He has a history of atrial fibrillation, cardiomyopathy, and is on anticoagulation. During that admission, he was also noted by exam and CT scan to have a large left inguinal hernia that contained a loop of sigmoid colon. The hernia is reducible. He has gone on to recover completely from the rib fractures and pneumothorax. We had thorough discussion in the office and he is now taken to surgery to repair his left inguinal hernia. [facility] Past Medical History Medical History (Updated 08/09/20 @ 08:55 by Franco Dugan DO) Atrial fibrillation Cardiomyopathy History of cardioversion Hyperlipidemia Neuropathy Surgical History Surgical History H/O cardiac radiofrequency ablation History of loop recorder It is nonfunctioning but he still has it inside of him. 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 The right when was done twice because it was popping out of the socket and he has a left 1 done once Family History Family History Father Lung cancer Mother COPD (chronic obstructive pulmonary disease) Cardiomyopathy Heart valve insufficiency Asthma Sibling H/O heart artery stent Obese Social History Social History Smoking status: Never smoker Alcohol intake: never Alcohol use details: 2 DRINKS/MONTH Substance use: never Living arrangements: with family Additional living arrangements comments: [facility] [phone] Spiritual care concerns: No Same Day Admit/Disch: Med Pre-admit Medications Home Medications Medication Instructions Recorded Confirmed Type Eliquis 5 mg PO BID 05/28/20 08/10/20 History duloxetine 60 mg PO QAM 05/28/20 08/10/20 History pravastatin 20 mg PO QAM 05/28/20 08/10/20 History sotalol 80 mg PO QAM 05/28/20 08/10/20 History zolpidem 10 mg PO HS 05/28/20 08/10/20 History ferrous gluconate 324 mg PO BID #30 tablet 05/31/20 08/10/20 Rx furosemide 40 mg PO QMWF 06/22/20 08/10/20 History oxycodone-acetaminophen 0.5 - 1 tablet PO Q6H PRN #10 08/10/20 Rx tablet Exam Const: General: comfortable, no acute distress, alert and awake HENMT: Head: normocephalic and atraumatic Mouth: Yes Normal oral and palatal mucosa present Eyes: Conjunctivae: conjunctivae normal Pupils: Equal, round and reactive pupils present EOM: EOMs intact bilaterally Neck: Neck: normal visual inspection, no lymphadenopathy and nontender Resp: Effort & Inspection: normal respiratory effort Auscultation: clear to auscultation bilaterally Cardio: Rate: regular rate Rhythm: regular rhythm Heart sounds: no gallops, no murmurs and no rubs GI: Inspection: non-distended GI Palp: Yes Soft to palpation, No Tenderness to palpation present (GI), No Hepatomegaly present and No Splenomegaly present : Male General Exam: Yes hernia ( reducible, large left inguinal hernia) Penis: Yes normal penis Scrotum: scrotum normal Testes: Testes normal Skin: Lesions: no lesions Rashes: no rashes Neuro: General: no focal motor deficits and CN's II-XI intact bilaterally Cranial nerves: Yes Equal, round and reactive pupils present, Yes Bilaterally intact EOM present, Yes facial symmetry and Yes Midline tongue present Speech: normal speech Motor exam (neuro): 5/5 motor strength present throughout and Motor abnormalities not present Extrem: General: no clubbing, cyanosis or edema and edema Psych: Affect: normal affect Thought process: Normal thought process present Insight: Good insight present (Psych) DS: Summary T
--- NOTE | 2020-08-09 08:55 | WPDANESEPPF ---
Anes - Initial Pre Proc Eval Procedure: Operation Date: 08/10/20 09:00 Proposed Procedures p Left Inguinal Hernia Repair - Enoch Garcia MD Date/Time: 08/09/20 08:55 Surgeon: Enoch Garcia MD Pre Op Diagnosis: left inguinal hernia Patient Data Age: 70 Gender: M Height: 1.78 m Weight: 93 kg Allergies Allergy/AdvReac Type Severity Reaction Status Date / Time ketamine AdvReac Severe Hallucinati Verified 06/22/20 12:35 ng Home Medications Medication Instructions Recorded Confirmed Type Eliquis 5 mg PO BID 05/28/20 08/02/20 History duloxetine 60 mg PO QAM 05/28/20 08/02/20 History pravastatin 20 mg PO QAM 05/28/20 08/02/20 History sotalol 80 mg PO QAM 05/28/20 08/02/20 History zolpidem 10 mg PO HS 05/28/20 08/02/20 History ferrous gluconate 324 mg PO BID #30 tablet 05/31/20 08/02/20 Rx furosemide 40 mg PO QMWF 06/22/20 08/02/20 History oxycodone-acetaminophen 0.5 - 1 tablet PO Q6H PRN #10 08/10/20 Rx tablet Patient hx anesthesia problems: none Family hx anesthesia problems: none PMFSH Past Medical History Medical History (Updated 08/09/20 @ 08:55 by Franco Dugan DO) Atrial fibrillation Cardiomyopathy History of cardioversion Hyperlipidemia Neuropathy Surgical History Surgical History H/O cardiac radiofrequency ablation History of loop recorder It is nonfunctioning but he still has it inside of him. 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 The right when was done twice because it was popping out of the socket and he has a left 1 done once Family History Family History Father Lung cancer Mother COPD (chronic obstructive pulmonary disease) Cardiomyopathy Heart valve insufficiency Asthma Sibling H/O heart artery stent Obese Social History Social History Smoking status: Never smoker Alcohol intake: never Alcohol use details: 2 DRINKS/MONTH Substance use: never Living arrangements: with family Additional living arrangements comments: [facility] [phone] Spiritual care concerns: No Anes - Eval Final PreProcedure Day of Procedure 08/09/20 08:55 Patient weight: overweight Heart: regular rate and rhythm Lungs: clear to auscultation and normal air movement Airway: Mallampati scale class 1 Neurological: alert and oriented Last oral intake: >/= 8 hours ASA classification: III Emergent: no Anesthetic plan: proceed Anesthesia type and monitoring: general GIVS and standard monitoring Informed Consent: The patient's anesthetic plan and its attendant risks and benefits were discussed with the patient/family/POA. Questions were solicited and answers provided to the satisfaction of the patient/family/POA.
[2020-08-10] VITALS (7 sets, daily range): BP systolic 102–147; BP diastolic 66–86; PULSE 46–63; RESP 14–20; TEMP 36.2; O2SAT 99–100
--- NOTE | 2020-08-10 06:53 | WPDHPUPDATE1 ---
History and Physical Update Update Date/Time: 08/10/20 06:53 History and Physical has been reviewed, including an updated exam of the patient. There are NO changes in the patient's condition. Risks, benefits, and alternatives have been discussed and questions answered. Patient agrees to proceed with procedure.
[2020-08-10] MEDS: ACETAMINOPHEN 500 MG TABLET 1000 MG PO (07:40)
[2020-08-10] MEDS: KETOROLAC 15 MG/ML VIAL (*BKC) IV PUSH (07:41)
[2020-08-10] MEDS: LACTATED RINGERS 1,000 ML 30 ML IV CONT ×2 (07:45→09:37)
[2020-08-10] MEDS: ceFAZolin 2 GM/D5W 50 ML 2 GM/50 ML BAG IVPB (08:00)
[2020-08-10] MEDS: BUPIVACAINE HCL 0.5% PF 30 ML VIAL INFILTRATE (08:26)
--- NOTE | 2020-08-10 09:45 | P.OP_ITS ---
Procedure Note - Detailed Date of procedure: 08/10/20 Pre-op diagnosis: left inguinal hernia [ ] inguinal hernia Post-op diagnosis: other (Large sliding left inguinal hernia) Procedure performed: Repair of sliding left inguinal hernia with 6 cm Parietex hernia mesh system Description of procedure: The patient was taken to surgery and IV sedation was administered. The left groin and genitalia were prepped and draped. Proposed incision was marked on the skin. Local was infiltrated into the skin and the deeper subcutaneous tissues. Incision was made and deepened through the subcutaneous. Crossing veins were cauterized and divided. Dissection was carried through Endy's fascia down to the external oblique aponeurosis. The aponeurosis was exposed as was the external ring. Additional local anesthesia was infiltrated deep to the aponeurosis in the area of the spermatic cord and inguinal canal contents. The aponeurosis was opened laterally and extended medially through the external ring. The leaves of the aponeurosis were dissected free from the spermatic cord. The ileoinguinal nerve was carefully preserved throughout the dissection and was left attached to the spermatic cord. The cord was then mobilized medially on a Bradford drain. The inguinal hernia was quite large and there was lot of fatty tissue in the spermatic cord area as well. We started by dissecting some of this lipomatous tissue of the cord back to the internal ring. It was divided near the internal ring and discarded. The hernia sac was then able to be found. It was a sliding hernia and field with the sigmoid colon. The sac was not opened. The cord and hernia sac were dissected back to the internal ring. The sac was then dissected back to a high dissection. It was dunked into the retroperitoneum. A 6 centimeter Parietex skull valley was chosen. It was folded to form a plug. It was placed in the defect. The edges were sutured to the transversalis fascia with interrupted 3 0 Vicryl suture. We then dissected some additional fatty tissue from the spermatic cord and discarded it. There was some bleeding from cord vessels which required cautery. Other vessels near the internal ring required clamping and ligated in with 4 0 Vicryl. We continued to inspect the inguinal canal and achieved good hemostasis before placing the patch. Patch was then cut to the appropriate size and placed over the inguinal canal floor. The lateral leaves were passed beyond the cord. The cord and ileoinguinal nerve were then laid over the patch. The external oblique aponeurosis was closed with interrupted 3 0 Vicryl suture. Sc arpa's fascia was closed with interrupted 3 0 Vicryl suture. Four 0 Vicryl subcuticular skin sutures were placed. The skin was closed finally with a running 4 0 Monocryl skin suture. The wound was dressed with Exofin surgical adhesive. The patient was awakened and taken to recovery in good condition. Sponge and needle counts were correct x2. Implants: 6 cm Parietex hernia mesh system Anesthesia: MAC and local (0.5% Marcaine with Exparel) Surgeon: Enoch Garcia MD [employer]: Bere BRAGG Estimated blood loss (mL): 5 Drains: No Packing: No Pathology: none sent Complications: None Condition: stable Disposition: PACU Findings: Large sliding indirect left inguinal hernia with sigmoid colon occupying most of the hernia sac.
--- NOTE | 2020-08-10 11:31 | SUR.PHASEII ---
1050; UPDATED SPOUSE, INFORMED PT NEEDS TO VOID PRIOR TO DISCHARGE.
--- NOTE | 2020-08-10 11:39 | SUR.PHASEII ---
PT TAKEN TO BATHROOM PER W/C
== END 2020-08-10 12:20 | disposition home or self-care (01) ==
PROVIDERS: PCP Internal Medicine; Visit Provider Surgery
PROC: (CPT 49525; principal; 2020-08-10 09:00)
DX: K40.90 Unilateral inguinal hernia, without obstruction or gangrene, not specified as recurrent (principal); I48.91 Unspecified atrial fibrillation; I42.9 Cardiomyopathy, unspecified; E78.5 Hyperlipidemia, unspecified; G62.9 Polyneuropathy, unspecified; Z79.01 Long term (current) use of anticoagulants
CPT/HCPCS: 49525; A9270; C1781; C9290; J0690; J1885; J2370; J2704; J3010; J7120

== ENCOUNTER 2021-05-01 15:17 | Emergency (ER) | payer OTHER, SELFPAY ==
[2021-05-01 15:27] VITALS: BP 118/76; PULSE 56; RESP 16; TEMP 36.9; O2SAT 98
--- NOTE | 2021-05-01 15:39 | ED.SKABFB ---
HPI - Skin/Abscess/Foreign Bdy General Chief complaint: Skin/Abscess/Foreign Body Stated complaint: insect bite History of Present Illness HPI narrative: This is a 70 Year old male that comes in complaining of right shoulder pain . He has informed me that he has started not to feel well. Patient states that he was bit by something and now his arm is swollen and warm with some reddness and wanted to get it checked out. States he was bit 2 weeks ago. Patient denies pulling anything out of it. Patient is having malaise no fever, nausea, vomiting Related Data Home Medications Medication Instructions Recorded Confirmed Eliquis 5 mg PO BID 05/28/20 05/01/21 pravastatin 20 mg PO QAM 05/28/20 09/17/20 sotalol 80 mg PO QAM 05/28/20 09/17/20 zolpidem 10 mg PO HS 05/28/20 09/17/20 furosemide 40 mg PO QMWF 06/22/20 09/17/20 eszopiclone 1 mg PO DAILY 05/01/21 05/01/21 pantoprazole 1 mg PO DAILY 05/01/21 05/01/21 Allergies Allergy/AdvReac Type Severity Reaction Status Date / Time ketamine AdvReac Severe Hallucinati Verified 05/01/21 15:35 ng Review of Systems Review of Systems: Narrative: CONSTITUTIONAL: Denies fever, chills, or sweats. EYES: Denies visual changes, redness, or discharge. ENT: Denies rhinorrhea, congestion, sore throat, or otalgia. CARDIOVASCULAR:Denies chest pain, palpitations, or edema. RESPIRATORY: Denies cough or dyspnea. GASTROINTESTINAL: Denies abdominal pain, nausea, vomiting, or diarrhea. GENITOURINARY: Denies dysuria or hematuria. SKIN:[Denies rash or itching. MUSCULOSKELETAL:Denies back pain, right shoulder joint pain, or myalgia. NEUROLOGIC: Denies headache, numbness, or weakness. PSYCHIATRIC:Denies anxiety or depression [facility] Past Medical History Medical History Atrial fibrillation Cardiomyopathy History of cardioversion Hyperlipidemia Neuropathy Surgical History Surgical History H/O cardiac radiofrequency ablation History of loop recorder It is nonfunctioning but he still has it inside of him. 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 The right when was done twice because it was popping out of the socket and he has a left 1 done once Inguinal hernia of left side without obstruction or gangrene Family History Family History Father Lung cancer Mother COPD (chronic obstructive pulmonary disease) Cardiomyopathy Heart valve insufficiency Asthma Sibling H/O heart artery stent Obese Social History Social History Smoking status: Never smoker Alcohol intake: never Alcohol use details: 2 DRINKS/MONTH Substance use: never Additional living arrangements comments: [facility] [phone] Gender identity (if verbalized by the patient): Male Spiritual care concerns: No Comments At time as signature, I have reviewed and agree with nursing past medical, social, surgical and family history. Please see nursing chart for further information. There is no relevant family history pertinent to the presenting complaint. Exam Narrative: Exam Narrative: GENERAL:Well-appearing, well-nourished, and in no acute distress. HEAD:Normocephalic, atraumatic. EYES: PERRLA and EOMI. ENT: Nares clear, no rhinorrhea or epistaxis. Mucous membranes moist. NECK: Supple. CHEST: Clear to auscultation. No respiratory distress. HEART: Regular rate and rhythm. No murmur heard. Normal peripheral pulses. ABDOMEN: Soft, nontender, nondistended, normal active bowel sounds. EXTREMITIES: Decreased range of motion due to pain. Mild edema right lateral arm edema with erythema and warmth to touch SKIN: Warm, dry, no rash. NEURO: No focal deficits. Alert and oriented x3. Course Vital Signs Vital signs: Vital Signs Temperature 98.4 F
== END 2021-05-01 15:46 | disposition home or self-care (01) ==
PROVIDERS: Emergency Provider Nurse Practitioner Family; PCP Internal Medicine
DX: L03.113 Cellulitis of right upper limb (principal); S40.261A Insect bite (nonvenomous) of right shoulder, initial encounter; W57.XXXA Bitten or stung by nonvenomous insect and other nonvenomous arthropods, initial encounter; I48.91 Unspecified atrial fibrillation; E78.5 Hyperlipidemia, unspecified; G62.9 Polyneuropathy, unspecified; Z96.611 Presence of right artificial shoulder joint; Z96.643 Presence of artificial hip joint, bilateral; I42.9 Cardiomyopathy, unspecified
CPT/HCPCS: 99213; G0463

== ENCOUNTER 2021-06-13 15:37 | Emergency (ER) | payer OTHER, SELFPAY ==
--- NOTE | ~2021-06-13 | XR_ITS ---
EXAMINATION: XR chest 2V EXAM DATE: 06/13/2021 16:31 INDICATION: sob cough x 1 month . TECHNIQUE: Frontal and lateral projections of the chest obtained and reviewed. Comparison is made to prior examination from 06/04/2020. FINDINGS: Cardiac monitoring device. Patient has diffuse idiopathic skeletal hyperostosis (DISH). Th oracolumbar fusion hardware with left shoulder replacement. No confluent consolidation, pneumothorax or pleural effusion suspected. Left midlung zone granuloma. IMPRESSION: No acute cardiopulmonary findings. Reviewed, dictated and finalized at location B.
[2021-06-13 15:42] VITALS: BP 131/70; PULSE 64; RESP 20; TEMP 36.6; O2SAT 100
--- NOTE | 2021-06-13 16:57 | ED.URI ---
HPI - URI/Sore Throat General Chief Complaint: Upper Respiratory Infection Stated Complaint: sob/fatigue Source: patient and RN notes reviewed Mode of arrival: ambulatory History of Present Illness HPI Narrative: This is a 70-year-old male who presented to urgent care with complaints of a productive cough with yellowish sputum, hoarseness, fatigue, decreased activity, shortness of breath and runny nose that he has experienced for approximately 1 month. Patient did visit his primary care physician who diagnosed him with allergies. He did not get any prescription or antibiotics for his allergies. Patient's seems to think he might have pneumonia x-ray completed pneumonia not indicated. The patient denies CP, palpitation, extremity numbness, lightheadedness, dizziness, constipation, diarrhea, chills, or fever. Related Data Home Medications Medication Instructions Recorded Confirmed Eliquis 5 mg PO BID 05/28/20 06/13/21 pravastatin 20 mg PO QAM 05/28/20 06/13/21 sotalol 80 mg PO QAM 05/28/20 06/13/21 eszopiclone 1 mg PO DAILY 05/01/21 06/13/21 pantoprazole 1 mg PO DAILY 05/01/21 06/13/21 Allergies Allergy/AdvReac Type Severity Reaction Status Date / Time ketamine AdvReac Severe Hallucinati Verified 06/13/21 16:19 ng Review of Systems Review of Systems: A 14 organ system Review of Systems was performed and pertinent positives included in the HPI, otherwise remaining ROS is negative. [facility] Past Medical History Medical History Atrial fibrillation Cardiomyopathy History of cardioversion Hyperlipidemia Neuropathy Surgical History Surgical History H/O cardiac radiofrequency ablation History of loop recorder It is nonfunctioning but he still has it inside of him. 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 The right when was done twice because it was popping out of the socket and he has a left 1 done once Inguinal hernia of left side without obstruction or gangrene Family History Family History Father Lung cancer Mother COPD (chronic obstructive pulmonary disease) Cardiomyopathy Heart valve insufficiency Asthma Sibling H/O heart artery stent Obese Social History Social History Smoking status: Never smoker Alcohol intake: never Alcohol use details: 2 DRINKS/MONTH Substance use: never Additional living arrangements comments: [facility] [phone] Gender identity (if verbalized by the patient): Male Spiritual care concerns: No Exam Narrative: GENERAL: This is a well-nourished, well-developed patient, in no apparent distress. HEAD: normocephalic, atraumatic. EYES: PERRL. Sclera clear/white. Vision is grossly intact. EARS: External ears normal, auditory canals clear and without drainage, TMs normal without perforation. Hearing grossly intact. NOSE: External nose normal with no obvious nasal discharge, nares without redness, no rhinorrhea. THROAT: Mucous membranes moist, posterior pharynx clear. NECK: Neck supple, non-tender without lymphadenopathy, masses or thyromegaly. CARDIOVASCULAR: Regular rate and rhythm without murmurs, gallops, or rubs. RESPIRATORY: Clear to auscultation. Breath sounds equal bilaterally. No wheezes, rales, or rhonchi. GASTROINTESTINAL: Abdomen soft, non-tender, nondistended. Bowel sounds are active. No hepato-splenomegaly, or palpable masses. No guarding. SKIN: warm, intact with no suspicious lesions or rash, good texture and turgor. NEURO: awake, alert, and oriented to person, place and time. There were no obvious focal neurologic abnormalities. Steady gait EXTREMITIES: Normal range of motion. No edema. No calf tenderness. Negative Homans sign bilaterally. BACK: Nontender without deformity
== END 2021-06-13 17:03 | disposition home or self-care (01) ==
PROVIDERS: Emergency Provider Nurse Practitioner; PCP Internal Medicine
DX: J01.10 Acute frontal sinusitis, unspecified (principal); I48.91 Unspecified atrial fibrillation; I42.9 Cardiomyopathy, unspecified; E78.5 Hyperlipidemia, unspecified; G62.9 Polyneuropathy, unspecified
CPT/HCPCS: 71046; 99213; G0463

== ENCOUNTER 2021-06-24 12:01 | Outpatient (CLI) | payer OTHER, SELFPAY ==
--- NOTE | ~2021-06-24 | XR_ITS ---
EXAMINATION: XR abdomen obstructive series EXAM DATE: 06/24/2021 12:27 INDICATION: Bloating, change in bowel habits. TECHNIQUE: Frontal upright projection of the upper abdomen, frontal projection of the lower abdomen f or interpretation. There is no prior study for comparison. FINDINGS: There is expected amount of colonic stool and gas. No small bowel dilation, nonobstructiv e bowel gas pattern. Calcifications in the pelvis are believed to be phleboliths. There is no organomegaly suspected. Avilez rods from lower thoracic spine through sacrum. Bilateral hip replacements. Lower lumbar la minectomies. There is no free intraperitoneal air. The lung bases are clear. IMPRESSION: Unremarkable abdomen x-ray exam. Reviewed, dictated and finalized at location B.
[2021-06-30 00:58] LABS: Calprotectin, Stool 75 mcg/g
[2021-07-01 22:56] LABS: Pancreatic Elastase, Stool 498 mcg/g
== END 2021-06-24 12:02 | disposition home or self-care (01) ==
PROVIDERS: PCP Internal Medicine; Visit Provider Nurse Practitioner
DX: R19.4 Change in bowel habit (principal); R14.0 Abdominal distension (gaseous)
CPT/HCPCS: 74019; 83993; 87045; 87177; 87209; 87269; 87427

== ENCOUNTER 2024-03-06 17:21 | Emergency (ER) | payer OTHER, SELFPAY ==
--- NOTE | 2024-03-06 17:23 | ED.GENADULT ---
HPI - General Adult General Chief complaint: Upper Respiratory Infection Stated complaint: SOB/Wheezing/Sinus Time Seen by Provider: 03/06/24 17:36 Source: patient, RN notes reviewed and old records reviewed Mode of arrival: ambulatory Limitations: no limitations History of Present Illness HPI narrative: 73-year-old male presents to the [facility] with complaints of cough, shortness of breath, sinus congestion since , 3 days. States that his and son are positive for COVID. Patient denies any chest pain States that he did 3 at home test which he reports is negative Patient states that his told him to go the emergency room, patient states he will not go back because he just been a month in the hospital. Discussed with patient that unfortunately due to his medication list we cannot prescribe the antiviral at this time, contraindication with Eliquis Onset (ago): day(s) (3) Treatments prior to arrival: other (cold medications) Related Data Home Medications Medication Instructions Recorded Confirmed apixaban 5 mg tablet (Eliquis) 5 mg PO BID 05/28/20 03/06/24 pravastatin 20 mg tablet 20 mg PO QAM 05/28/20 03/06/24 sotalol 80 mg tablet 80 mg PO QAM 05/28/20 03/06/24 eszopiclone 3 mg tablet 1 mg PO DAILY 05/01/21 03/06/24 pantoprazole 40 mg tablet,delayed 1 mg PO DAILY 05/01/21 03/06/24 release duloxetine 30 mg capsule,delayed 30 mg PO DAILY 03/06/24 03/06/24 release methocarbamol 500 mg tablet 1,000 mg PO TID 03/06/24 03/06/24 metoprolol tartrate 100 mg tablet mg 03/06/24 montelukast 10 mg tablet 10 mg PO DAILY 03/06/24 03/06/24 oxybutynin chloride 10 mg 10 mg PO DAILY 03/06/24 03/06/24 tablet,extended release 24 hr pravastatin 40 mg tablet mg 03/06/24 pregabalin 225 mg capsule 225 mg PO BID 03/06/24 03/06/24 Allergies Allergy/AdvReac Type Severity Reaction Status Date / Time ketamine AdvReac Severe Hallucinati Verified 03/06/24 17:31 ng Review of Systems Review of Systems: All systems reviewed & are unremarkable except as noted in HPI and below Constitutional: Constitutional: Reports no additional constitutional complaints Eyes: Eyes: Reports no additional eye complaints ENT: Reports system reviewed and no additional complaints, except as documented Cardiovascular: Cardiovascular: Reports no additional cardiovascular complaints, Denies chest pain and Denies dyspnea Respiratory: Respiratory: Reports as per HPI, Denies chest congestion, Reports cough and Reports dyspnea Gastrointestinal: Gastrointestinal: Reports no additional gastrointestinal complaints, Denies abdominal pain, Denies nausea and Denies vomiting Musculoskeletal: Musculoskeletal: Reports no additional musculoskeletal complaints Integumentary/Breasts: Skin/Breast: Reports system reviewed and no additional complaints, except as docu Neurologic: Reports system reviewed and no additional complaints, except as documented Psychiatric: Psychiatric: Reports no additional psychiatric complaints Allergic/Immunologic: Allergic/Immunologic: Reports no additional allergic/immunologic complaints [facility] Past Medical History Medical History Atrial fibrillation Cardiomyopathy History of cardioversion Hyperlipidemia Neuropathy Surgical History Surgical History H/O cardiac radiofrequency ablation History of loop recorder It is nonfunctioning but he still has it inside of him. 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
[2024-03-06 17:36] VITALS: BP 133/81; PULSE 95; RESP 22; TEMP 37.6; O2SAT 97
[2024-03-06 17:48] VITALS: BP 133/81; PULSE 95; RESP 22; TEMP 37.6; O2SAT 97
== END 2024-03-06 17:58 | disposition home or self-care (01) ==
PROVIDERS: Emergency Provider Nurse Practitioner; PCP Internal Medicine
DX: U07.1 COVID-19 (principal); I48.91 Unspecified atrial fibrillation; E78.5 Hyperlipidemia, unspecified; G62.9 Polyneuropathy, unspecified; Z96.611 Presence of right artificial shoulder joint; Z96.643 Presence of artificial hip joint, bilateral; Z79.01 Long term (current) use of anticoagulants
CPT/HCPCS: 87426; 87804; 99213; G0463

== ENCOUNTER 2024-04-29 17:57 | Emergency (ER) | payer OTHER, SELFPAY ==
[2024-04-29] VITALS (20 sets, daily range): BP systolic 97–135; BP diastolic 62–95; PULSE 63–82; RESP 12–21; TEMP 36.3–37; O2SAT 90–98
--- NOTE | ~2024-04-29 | XR_ITS ---
XR hip LT 2V w AP pelvis Ordering provider: Mahesh Vigil MD History: . possible dislocation, pain . Comparison: January 28, 2018 FINDINGS: BONES: No definite fractures. HIP JOINT SPACES: Left hip arthroplasty with dislocation. SACROILIAC JOINT SPACES/LUMBAR SPINE: The sacroiliac joint spaces are normal. Mild degenerative rubio es of the visualized lower lumbar spine. Postoperative changes in the spine. PUBIC SYMPHYSIS: Normal. SOFT TISSUES: Normal. IMPRESSION: Left hip dislocation. No bony fractures seen. Reviewed, dictated and finalized at location A.
--- NOTE | ~2024-04-29 | XR_ITS ---
XR hip LT min 2V Ordering provider: Mahesh Vigil MD History: . left hip reduction . Comparison: April 29, 2024 FINDINGS: BONES: No acute fracture or dislocation. HIP JOINT SPACES: Reduction of the dislocated left hip arthroplasty is noted. SACROILIAC JOINT SPACES/LUMBAR SPINE: The sacroiliac joint spaces are normal. Mild degenerative rubio es of the visualized lower lumbar spine. PUBIC SYMPHYSIS: Normal. SOFT TISSUES: Normal. IMPRESSION: No acute osseous abnormality. Reduced dislocated left hip arthroplasty. Reviewed, dictated and finalized at location A.
--- NOTE | 2024-04-29 18:36 | ED.LOWEXIN ---
HPI - Extremity Injury (Lower) General Chief Complaint: Extremity Injury, Lower Stated Complaint: Hip dislocation History of Present Illness HPI Narrative: 73-year-old male presents to the emergency department for evaluation for left hip pain. Patient does have history of hip replacement back in 2012. Patient initially had frequent hip dislocations but had a surgical revision in 2018. Patient recently began having problems again and patient is scheduled another surgical region by his orthopedist at [facility] but patient is waiting to get medically cleared. Patient was bending over today and felt the left hip pop out. Patient denies any other pain complaint. Patient is uncomfortable due to the left hip pain. Related Data Home Medications Medication Instructions Recorded Confirmed apixaban 5 mg tablet (Eliquis) 5 mg PO BID 05/28/20 03/06/24 pravastatin 20 mg tablet 20 mg PO QAM 05/28/20 03/06/24 sotalol 80 mg tablet 80 mg PO QAM 05/28/20 03/06/24 eszopiclone 3 mg tablet 1 mg PO DAILY 05/01/21 03/06/24 pantoprazole 40 mg tablet,delayed 1 mg PO DAILY 05/01/21 03/06/24 release duloxetine 30 mg capsule,delayed 30 mg PO DAILY 03/06/24 03/06/24 release methocarbamol 500 mg tablet 1,000 mg PO TID 03/06/24 03/06/24 metoprolol tartrate 100 mg tablet mg 03/06/24 montelukast 10 mg tablet 10 mg PO DAILY 03/06/24 03/06/24 oxybutynin chloride 10 mg 10 mg PO DAILY 03/06/24 03/06/24 tablet,extended release 24 hr pravastatin 40 mg tablet mg 03/06/24 pregabalin 225 mg capsule 225 mg PO BID 03/06/24 03/06/24 Allergies Allergy/AdvReac Type Severity Reaction Status Date / Time ketamine AdvReac Severe Hallucinati Verified 04/29/24 18:09 ng Review of Systems Review of Systems: All systems reviewed & are unremarkable except as noted in HPI and below PMFSH Past Medical History Medical History Atrial fibrillation Cardiomyopathy History of cardioversion Hyperlipidemia Neuropathy Surgical History Surgical History H/O cardiac radiofrequency ablation History of loop recorder It is nonfunctioning but he still has it inside of him. 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 The right when was done twice because it was popping out of the socket and he has a left 1 done once Inguinal hernia of left side without obstruction or gangrene Family History Family History Father Lung cancer Mother COPD (chronic obstructive pulmonary disease) Cardiomyopathy Heart valve insufficiency Asthma Sibling H/O heart artery stent Obese Social History Social History Smoking status: Never smoker Alcohol intake: current Alcohol use details: 2 DRINKS/MONTH Substance use: never Living arrangements: with family Additional living arrangements comments: [facility] [phone] Gender identity (if verbalized by the patient): Male Spiritual care concerns: No Exam Narrative: APPEARANCE: Uncomfortable. HEAD: normocephalic, atraumatic. EYES: PERRLA/EOMI, conjunctivae clear. NOSE: Normal no drainage EARS:TMS clear with good light reflex. THROAT: Pharynx clear, no exudate. NECK: Supple. No adenopathy, no masses. RESPIRATORY: Airway patent, respirations nonlabored. Clear to auscultation bilaterally, no rales, rhonchi, wheezing. CARDIOVASCULAR: Regular rate and rhythm without murmurs rubs or gallops. ABDOMINAL: Soft, nontender, nondistended, normal bowel sounds MUSCULOSKELETAL: Moves all extremities. Strength/ROM intact, No edema, No calf tenderness. NEURO: Alert. Cranial nerves II through XII intact. Good gait. Good coordination SKIN: Warm, dry. Normal Color PSYCHIATRIC: Normal affect/mood. Course Course Emergency Course: Hip was reduced as described the procedure not
[2024-04-29] MEDS: HYDROmorphone HCL INJ (*CRX) 1 MG/ML SYR 0.5 MG IV PUSH ×2 (18:48→19:34)
--- NOTE | 2024-04-29 19:11 | PC.NURSE ---
Pt in XRAY via stretcher at this time, remains at bedside. Bedside nurse to nurse report given to Cat RN.
--- NOTE | 2024-04-29 19:30 | PC.NURSE ---
report received from MINA Clark. Assumed care of patient at this time.
[2024-04-29] MEDS: SODIUM CHLORIDE 0.9% IV 1,000 ML 999 ML (19:45)
[2024-04-29] MEDS: PROPOFOL IV EMULSION 200 MG/20 ML VIAL 60 MG IV PUSH (19:49)
== END 2024-04-29 20:50 | disposition home or self-care (01) ==
PROVIDERS: Emergency Provider Emergency Medicine; PCP Internal Medicine
DX: T84.021A Dislocation of internal left hip prosthesis, initial encounter (principal); I48.91 Unspecified atrial fibrillation; E78.5 Hyperlipidemia, unspecified
CPT/HCPCS: 27265; 73502; 96374; 96376; 99285; J1170; J2704; J7030

== ENCOUNTER 2024-05-10 08:09 | Emergency (ER) | payer OTHER, SELFPAY ==
[2024-05-10] VITALS (33 sets, daily range): BP systolic 98–131; BP diastolic 51–86; PULSE 57–85; RESP 10–27; TEMP 36.4–36.6; O2SAT 46–100
--- NOTE | ~2024-05-10 | XR_ITS ---
XR hip LT 2V w AP pelvis Ordering provider: Erwin Hidalgo MD History: . L hip pain, HX DISLOCATION, UNABLE TO TOLERATE LATERAL VIEW . Comparison: April 29, 2024 FINDINGS: BONES: No acute fracture. Dislocated left hip arthroplasty. Postoperative changes in the lower lumbar area. HIP JOINT SPACES: Dislocated left hip PUBIC SYMPHYSIS: Normal. SOFT TISSUES: Normal. IMPRESSION: No acute osseous abnormality pelvis and left hip. Dislocated left hip arthroplasty. Reviewed, dictated and finalized at location A.
--- NOTE | ~2024-05-10 | XR_ITS ---
EXAMINATION: XR hip LT 1V DATE: 05/10/2024 10:17 INDICATION: Left hip dislocation status post reduction. TECHNIQUE: A single view of left hip was obtained. COMPARISON: Left hip radiographs at 8:33 AM FINDINGS: There is a total left hip arthroplasty in near-anatomic alignment. No fracture. The distal femoral stem is not included. No periprosthetic lucency to suggest loosening or infection. There are changes of posterior fusion procedure in the thoracolumbar spine and involving the iliac bones. IMPRESSION: 1. Total left hip arthroplasty in near-anatomic alignment. Reviewed, dictated and finalized at location A.
--- NOTE | 2024-05-10 09:02 | PC.NURSE ---
Signed consent for closed reduction of left hip on pts chart.
[2024-05-10] MEDS: SODIUM CHLORIDE 0.9% IV 1,000 ML 999 ML IV CONT ×2 (09:10→10:03)
--- NOTE | 2024-05-10 09:11 | ED.GENADULT ---
HPI - General Adult General Chief complaint: Extremity Injury, Lower Stated complaint: hip injury History of Present Illness HPI narrative: This is a 73-year-old male with a left arthroplasty presenting for a dislocated hip. The has happened. multiple times over the last several months. Patient was getting off the toilet when he felt his hip slight out of position. Patient has no other injuries. Related Data Home Medications Medication Instructions Recorded Confirmed apixaban 5 mg tablet (Eliquis) 5 mg PO BID 05/28/20 03/06/24 pravastatin 20 mg tablet 20 mg PO QAM 05/28/20 03/06/24 sotalol 80 mg tablet 80 mg PO QAM 05/28/20 03/06/24 eszopiclone 3 mg tablet 1 mg PO DAILY 05/01/21 03/06/24 pantoprazole 40 mg tablet,delayed 1 mg PO DAILY 05/01/21 03/06/24 release duloxetine 30 mg capsule,delayed 30 mg PO DAILY 03/06/24 03/06/24 release methocarbamol 500 mg tablet 1,000 mg PO TID 03/06/24 03/06/24 metoprolol tartrate 100 mg tablet mg 03/06/24 montelukast 10 mg tablet 10 mg PO DAILY 03/06/24 03/06/24 oxybutynin chloride 10 mg 10 mg PO DAILY 03/06/24 03/06/24 tablet,extended release 24 hr pravastatin 40 mg tablet mg 03/06/24 pregabalin 225 mg capsule 225 mg PO BID 03/06/24 03/06/24 Allergies Allergy/AdvReac Type Severity Reaction Status Date / Time ketamine AdvReac Severe Hallucinati Verified 04/29/24 18:09 ng [facility] Past Medical History Medical History Atrial fibrillation Cardiomyopathy History of cardioversion Hyperlipidemia Neuropathy Surgical History Surgical History H/O cardiac radiofrequency ablation History of loop recorder It is nonfunctioning but he still has it inside of him. 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 The right when was done twice because it was popping out of the socket and he has a left 1 done once Inguinal hernia of left side without obstruction or gangrene Family History Family History Father Lung cancer Mother COPD (chronic obstructive pulmonary disease) Cardiomyopathy Heart valve insufficiency Asthma Sibling H/O heart artery stent Obese Social History Social History Smoking status: Never smoker Alcohol intake: current Alcohol use details: 2 DRINKS/MONTH Substance use: never Living arrangements: with family Additional living arrangements comments: [facility] [phone] Gender identity (if verbalized by the patient): Male Spiritual care concerns: No Exam Narrative: APPEARANCE: No apparent distress. Head: atraumatic. EYES: EOMI, NOSE: Atraumatic NECK: Trachea midline RESPIRATORY: No increased rate of breathing CARDIOVASCULAR: RRR, ABDOMINAL: Non-distended MUSCULOSKELETAl: Patient is laying on his right side, deformity of the left hip, shortening and internal rotation the left leg neurovascularly intact NEURO: Alert. Moving 4/4 extremities SKIN:: Warm, dry. Normal color PSYCHIATRIC: Normal affect Course Vital Signs Vital signs: Vital Signs Temperature 97.6 F 05/10/24 08:14 Pulse Rate 58 L 05/10/24 08:14 Respiratory Rate 18 05/10/24 08:14 Blood Pressure 103/73 05/10/24 08:14 Pulse Oximetry 98 05/10/24 08:14 Oxygen Delivery Room Air 05/10/24 08:14 Temperature 97.9 F 05/10/24 10:06 Pulse Rate 71 05/10/24 11:00 Respiratory Rate 24 H 05/10/24 11:00 Blood Pressure 127/86 05/10/24 11:00 Pulse Oximetry 99 05/10/24 11:00 Oxygen Delivery Nasal Cannula 05/10/24 10:34 Oxygen Flow Rate 0.5 05/10/24 10:34 Procedures Orthopedic Joint Reduction Joint #1: Orthopedic Joint Reduction Date: 05/10/24 Time Out Performed: Yes Side: left Joint Reduction Location: hip Analgesia: procedural sedatio
--- NOTE | 2024-05-10 10:37 | PC.NURSE ---
Addendum entered by Marie Hendrix RN 05/10/24 10:51: 1028 knee immobilizer placed on the L leg by Renea Zarate. Original Note: 1001 time out performed by EDP Dr. Hidalgo 1003 verbal order for 1L NS per EDP Dr. Hidalgo 1004 100mg of Propofol administered via IV by EDP Dr. Hidalgo 1006 30mg of Propofol administered via IV by EDP Dr. Hidalgo 1006 L hip believed to be back in place, EDP Rocky Tuttle gave verbal orders for XR L hip 1007 Pts O2 saturation drops to 77% and then to 46%. EDP Dr. Hidalgo placed nasal trumpet in the pts R nare and then pt was being bagged by respiratory. 1008 pts O2 saturation returns to 100% with assisted ventilation 1010 pt no longer requiring assistance with ventilation 1014 XR confirms L hip placement 1015 pt spontaneously opens eyes 1016 BP 108/77 HR 67 O2 98% on 0.5L NC eCO2 43 RR 16 1021 BP 111/62 HR 73 O2 97% on 0.5L NC eCO2 47 RR 16 1026 BP 107/70 HR 75 O2 98% on 0.5L NC eCO2 45 RR 15 1031 BP 105/69 HR 69 O2 98% on 0.5L NC eCO2 47 RR 14 1034 BP 121/74 HR 66 O2 100% on 0.5L NC eCO2 47 RR 16
== END 2024-05-10 11:33 | disposition home or self-care (01) ==
PROVIDERS: Emergency Provider Emergency Medicine; PCP Internal Medicine
DX: T84.021A Dislocation of internal left hip prosthesis, initial encounter (principal); I48.91 Unspecified atrial fibrillation; I42.9 Cardiomyopathy, unspecified; E78.5 Hyperlipidemia, unspecified; G62.9 Polyneuropathy, unspecified; Z96.611 Presence of right artificial shoulder joint; Z96.643 Presence of artificial hip joint, bilateral; Z79.01 Long term (current) use of anticoagulants; Z79.899 Other long term (current) drug therapy; Y79.2 Prosthetic and other implants, materials and accessory orthopedic devices associated with adverse incidents
CPT/HCPCS: 27265; 73501; 73502; 99285; J7030

== ENCOUNTER 2024-05-10 18:15 | Emergency (ER) | payer OTHER, SELFPAY ==
--- NOTE | ~2024-05-10 | XR_ITS ---
EXAMINATION: XR hip LT 2V w AP pelvis DATE: 05/10/2024 19:55 INDICATION: Recurrent left hip dislocation TECHNIQUE: Anteroposterior view of the pelvis and anteroposterior and cross-table lateral views of th e left hip were obtained. COMPARISON: None. FINDINGS: Again seen are bilateral total hip arthroplasties which are in near anatomic alignment. The distal ti p of the femoral stem of the right hip arthroplasty is not visualized. No fractures identified. Parti ally visualized instrumentation for a posterior lumbar and lumbosacral spinal fusion with bilateral v ertical paz and pedicle screws along with bilateral iliac screws. Soft tissues are unremarkable. IMPRESSION: 1. Bilateral total hip arthroplasties in near-anatomic alignment. No arthroplasty dislocation or acut e osseous abnormality. Reviewed, dictated and finalized at location A. IMPRESSION: 1. Bilateral total hip arthroplasties in near-anatomic alignment. No arthroplas ty dislocation or acute osseous abnormality.
[2024-05-10 18:34] VITALS: BP 133/85; PULSE 81; RESP 15; TEMP 36.5; O2SAT 98
--- NOTE | 2024-05-10 18:37 | ED.LOWEXIN ---
HPI - Extremity Injury (Lower) General Chief Complaint: Extremity Injury, Lower <KRYSTIN Blanton Last Filed: 05/10/24 18:43> Stated Complaint: L hip dislocation <KRYSTIN Blanton Last Filed: 05/10/24 18:43> Time Seen by Provider: 05/10/24 18:35 <KRYSTIN Blanton Last Filed: 05/10/24 18:43> Focused HPI: Patient is a 73-year-old male who presents to the ED with concern for recurrent L hip dislocation. History of previous left hip arthroplasty and recurrent dislocations the past few months. He was seen in the ED this morning for recurrent dislocation after standing up from the toilet. Hip was reduced in the ED. Patient was discharged with a knee immobilizer in place. He states he had persistent pain after reduction today and had his remove the knee immobilizer because he felt this was hurting him. He is unsure when the hip re-dislocated but states he is having the same pain he has when it is dislocated. Denies fall or direct injury. Denies numbness. GENERAL: Chronically ill-appearing, obese with BMI of 35.9, and in no acute distress. HEAD: Normocephalic, atraumatic. CHEST: Clear to auscultation. ?No respiratory distress. HEART: Regular rate and rhythm.?Pedal pulses intact. MSK: Deformity to L hip with posterior fullness, TTP. Sensation intact throughout L leg. NEURO: ?Alert and oriented x3. Patient screened in triage and initial orders placed.? ?Additional care and disposition to be based upon?diagnostic testing and treatment. <Mary Nuñez PA-C - Last Filed: 05/10/24 18:43> Source: patient and old records reviewed <KRYSTIN Blanton Last Filed: 05/10/24 18:43> Mode of arrival: ambulatory <KRYSTIN Blanton Last Filed: 05/10/24 18:43> Limitations: no limitations <KRYSTIN Blanton Last Filed: 05/10/24 18:43> History of Present Illness HPI Narrative: agree with the above note. On my evaluation the patient states his hip is no longer in pain. States it felt better when he went to go get his x-ray. He has no complaints at this time. <Dolores Low PA-C - Last Filed: 05/10/24 21:00> Related Data Home Medications: Home Medications Medication Instructions Recorded Confirmed apixaban 5 mg tablet (Eliquis) 5 mg PO BID 05/28/20 03/06/24 pravastatin 20 mg tablet 20 mg PO QAM 05/28/20 03/06/24 sotalol 80 mg tablet 80 mg PO QAM 05/28/20 03/06/24 eszopiclone 3 mg tablet 1 mg PO DAILY 05/01/21 03/06/24 pantoprazole 40 mg tablet,delayed 1 mg PO DAILY 05/01/21 03/06/24 release duloxetine 30 mg capsule,delayed 30 mg PO DAILY 03/06/24 03/06/24 release methocarbamol 500 mg tablet 1,000 mg PO TID 03/06/24 03/06/24 metoprolol tartrate 100 mg tablet mg 03/06/24 montelukast 10 mg tablet 10 mg PO DAILY 03/06/24 03/06/24 oxybutynin chloride 10 mg 10 mg PO DAILY 03/06/24 03/06/24 tablet,extended release 24 hr pravastatin 40 mg tablet mg 03/06/24 pregabalin 225 mg capsule 225 mg PO BID 03/06/24 03/06/24 <Mary Nuñez PA-C - Last Filed: 05/10/24 18:43> Allergies/Adverse Reactions: Allergies Allergy/AdvReac Type Severity Reaction Status Date / Time ketamine AdvReac Severe Hallucinati Verified 04/29/24 18:09 ng <Mary Nuñez PA-C - Last Filed: 05/10/24 18:43> Review of Systems Review of Systems: All systems reviewed & are unremarkable except as noted in HPI and below <Dolores Low PA-C - Last Filed: 05/10/24 21:00> PMFSH Past Medical History Medical History: Medical History Atrial fibrillation Cardiomyopathy History of cardioversion Hyperlipidemia Neuropathy <Mary Nuñez PA-C - Last Filed: 05/10/24 18:43> Surgical History Surgical History: Surgical History H/O cardiac radiofrequency ablation History of loo
== END 2024-05-10 21:19 | disposition home or self-care (01) ==
PROVIDERS: Emergency Provider Physician Assistant; PCP Internal Medicine
DX: M25.552 Pain in left hip (principal); I48.91 Unspecified atrial fibrillation; I42.9 Cardiomyopathy, unspecified; E78.5 Hyperlipidemia, unspecified; G62.9 Polyneuropathy, unspecified; Z96.611 Presence of right artificial shoulder joint; Z96.643 Presence of artificial hip joint, bilateral; Z79.01 Long term (current) use of anticoagulants; Z79.899 Other long term (current) drug therapy
CPT/HCPCS: 73502; 99283

== ENCOUNTER 2024-06-10 10:43 | Emergency (ER) | payer OTHER, SELFPAY ==
[2024-06-10] VITALS (17 sets, daily range): BP systolic 97–123; BP diastolic 66–109; PULSE 55–97; RESP 13–21; TEMP 36.4; O2SAT 93–100
--- NOTE | ~2024-06-10 | XR_ITS ---
AP view of the left hip CLINICAL HISTORY: Post reduction COMPARISON: 06/10/2024 at 10:52 AM FINDINGS: Please note hip arthroplasty dislocation has been successfully reduced. Hardware alignment is now satisfactory. No acute osseous fracture seen. Skin dudley present. IMPRESSION: Successful reduction of previously noted hip arthroplasty dislocation. Reviewed, dictated and finalized at location .
--- NOTE | ~2024-06-10 | XR_ITS ---
AP view of the left hip CLINICAL INDICATION: Dislocation FINDINGS: Total left hip arthroplasty is present. There is superior dislocation of the femoral head c omponent from the acetabular cup component. No acute osseous fracture seen. Soft tissues are unremark able. IMPRESSION: Superior dislocation of the femoral head component of left hip arthroplasty from the acetabular cup c omponent. Reviewed, dictated and finalized at location M. IMPRESSION: Superior dislocation of the femoral head component of left hip arthroplasty fro m the acetabular cup component.
--- NOTE | 2024-06-10 10:52 | ED.LOWEXIN ---
HPI - Extremity Injury (Lower) General Chief Complaint: Extremity Injury, Lower <Dolores Low PA-C - Last Filed: 06/10/24 12:01> Stated Complaint: hip injury <Dolores Low PA-C - Last Filed: 06/10/24 12:01> History of Present Illness HPI Narrative: 73-year-old male with history of left hip replacement presents to the emergency department via EMS from home for concerns for spontaneous left hip dislocation. Patient states he stood up from going to the bathroom and felt his hip pop out of socket. This has happened several times in the past And he was seen in our emergency department. His orthopedist is at [facility]. States he underwent surgery For a left hip arthroplasty revision 1 week ago with his orthopedist, however reported that when they opened the left hip there was concerns for infection. Patient states that the surgeon then closed his hip prior to any intervention and started the patient antibiotics. Patient states cultures came back negative for infection and he is now scheduled for surgery in July. patient states in the meantime is orthopedist not give him any precautions to prevent his left hip from continuously dislocating. Denies falling or other injuries. Denies numbness or tingling to the left leg. States he ambulates with a walker. <Dolores Low PA-C - Last Filed: 06/10/24 12:01> Related Data Home Medications: Home Medications Medication Instructions Recorded Confirmed apixaban 5 mg tablet (Eliquis) 5 mg PO BID 05/28/20 03/06/24 pravastatin 20 mg tablet 20 mg PO QAM 05/28/20 03/06/24 sotalol 80 mg tablet 80 mg PO QAM 05/28/20 03/06/24 eszopiclone 3 mg tablet 1 mg PO DAILY 05/01/21 03/06/24 pantoprazole 40 mg tablet,delayed 1 mg PO DAILY 05/01/21 03/06/24 release duloxetine 30 mg capsule,delayed 30 mg PO DAILY 03/06/24 03/06/24 release methocarbamol 500 mg tablet 1,000 mg PO TID 03/06/24 03/06/24 metoprolol tartrate 100 mg tablet mg 03/06/24 montelukast 10 mg tablet 10 mg PO DAILY 03/06/24 03/06/24 oxybutynin chloride 10 mg 10 mg PO DAILY 03/06/24 03/06/24 tablet,extended release 24 hr pravastatin 40 mg tablet mg 03/06/24 pregabalin 225 mg capsule 225 mg PO BID 03/06/24 03/06/24 <Dolores Low PA-C - Last Filed: 06/10/24 12:01> Allergies/Adverse Reactions: Allergies Allergy/AdvReac Type Severity Reaction Status Date / Time ketamine AdvReac Severe Hallucinati Verified 06/10/24 10:51 ng <Dolores Low PA-C - Last Filed: 06/10/24 12:01> Review of Systems Review of Systems: All systems reviewed & are unremarkable except as noted in HPI and below <Dolores oLw PA-C - Last Filed: 06/10/24 12:01> [facility] Past Medical History Medical History: Medical History Atrial fibrillation Cardiomyopathy History of cardioversion 7 Hyperlipidemia Neuropathy <Dolores Low PA-C - Last Filed: 06/10/24 12:01> Surgical History Surgical History: Surgical History H/O cardiac radiofrequency ablation History of loop recorder It is nonfunctioning but he still has it inside of him. 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 The right when was done twice because it was popping out of the socket and he has a left 1 done once Inguinal hernia of left side without obstruction or gangrene <Dolores Low PA-C - Last Filed: 06/10/24 12:01> Family History Family History: Family History Father Lung cancer Mother COPD (chronic obstructive pulmonary disease) Cardiomyopathy Heart valve insufficiency Asthma Sibling H/O heart artery stent Obese <Dolores Low PA-C - Last Filed: 06/10/24 12:01> Social History Social History: Social History (Reviewed 06/10/24 @ 10:56 by FRANCINE Cole
[2024-06-10] MEDS: SODIUM CHLORIDE 0.9% IV 1,000 ML 999 ML IV CONT (11:00)
[2024-06-10] MEDS: HYDROmorphone HCL INJ (*CRX) 1 MG/ML SYR 0.5 MG IV PUSH (11:00)
[2024-06-10] MEDS: PROPOFOL IV EMULSION 200 MG/20 ML VIAL 60 MG IV PUSH (11:10)
--- NOTE | 2024-06-10 11:24 | PC.NURSE ---
1109 Time out performed, Dr. Vigil at bedside. All equipment needed in the room. 1110 60 mg of Propofol given by Dr. Vigil 1111 Reduction completed 1114 Pt placed on 2L of O2, pt arousable 1116 Xray confirmed proper placement
== END 2024-06-10 12:32 | disposition home or self-care (01) ==
PROVIDERS: Emergency Provider Physician Assistant; PCP Internal Medicine
DX: T84.021A Dislocation of internal left hip prosthesis, initial encounter (principal); I48.91 Unspecified atrial fibrillation; I42.9 Cardiomyopathy, unspecified; E78.5 Hyperlipidemia, unspecified; G62.9 Polyneuropathy, unspecified; Z79.899 Other long term (current) drug therapy; Z96.643 Presence of artificial hip joint, bilateral; Z79.01 Long term (current) use of anticoagulants; Y79.2 Prosthetic and other implants, materials and accessory orthopedic devices associated with adverse incidents
CPT/HCPCS: 27265; 73501; 96374; 99285; J1170; J2704; J7030

== ENCOUNTER 2024-06-29 16:52 | Emergency (ER) | payer OTHER, SELFPAY ==
[2024-06-29] VITALS (51 sets, daily range): BP systolic 101–124; BP diastolic 67–91; PULSE 54–96; RESP 11–20; TEMP 36.5–36.9; O2SAT 76–100
--- NOTE | ~2024-06-29 | XR_ITS ---
SINGLE VIEW LEFT HIP Ordering provider: Brittany Bernard MD History: . POST REDUCTION . Comparison: None. FINDINGS/impression: Status post reduction of the left hip prosthesis. Reviewed, dictated and finalized at location A.
--- NOTE | ~2024-06-29 | XR_ITS ---
XR hip LT 2V w AP pelvis Ordering provider: Caesar Arredondo MD History: . fall, injury, swelling, pain . Comparison: May 14, 2024 FINDINGS: BONES: No acute fracture. HIP JOINT SPACES: Dislocated left hip prosthesis laterally and superiorly. SACROILIAC JOINT SPACES/LUMBAR SPINE: Postoperative changes in the lower lumbar area and in the sacru m. Bilateral sacroiliitis. Right hip arthroplasty. PUBIC SYMPHYSIS: Normal. SOFT TISSUES: Normal. IMPRESSION: Dislocated left hip prosthesis. Reviewed, dictated and finalized at location A.
--- NOTE | 2024-06-29 17:29 | ED.LOWEXIN ---
HPI - Extremity Injury (Lower) General Chief Complaint: Extremity Injury, Lower Stated Complaint: hip dislocated Time Seen by Provider: 06/29/24 17:13 Source: patient Mode of arrival: EMS Limitations: no limitations History of Present Illness HPI Narrative: 73 years old white male was bending over, felt a pop at the left hip he denies any fall or any trauma. History of left hip dislocation 9 times, last 1 was 18 days ago. Patient is scheduled for surgery at the left hip July 15 Related Data Home Medications Medication Instructions Recorded Confirmed apixaban 5 mg tablet (Eliquis) 5 mg PO BID 05/28/20 03/06/24 pravastatin 20 mg tablet 20 mg PO QAM 05/28/20 03/06/24 sotalol 80 mg tablet 80 mg PO QAM 05/28/20 03/06/24 eszopiclone 3 mg tablet 1 mg PO DAILY 05/01/21 03/06/24 pantoprazole 40 mg tablet,delayed 1 mg PO DAILY 05/01/21 03/06/24 release duloxetine 30 mg capsule,delayed 30 mg PO DAILY 03/06/24 03/06/24 release methocarbamol 500 mg tablet 1,000 mg PO TID 03/06/24 03/06/24 metoprolol tartrate 100 mg tablet mg 03/06/24 montelukast 10 mg tablet 10 mg PO DAILY 03/06/24 03/06/24 oxybutynin chloride 10 mg 10 mg PO DAILY 03/06/24 03/06/24 tablet,extended release 24 hr pravastatin 40 mg tablet mg 03/06/24 pregabalin 225 mg capsule 225 mg PO BID 03/06/24 03/06/24 Allergies Allergy/AdvReac Type Severity Reaction Status Date / Time ketamine AdvReac Severe Hallucinati Verified 06/10/24 10:51 ng Review of Systems Review of Systems: All systems reviewed & are unremarkable except as noted in HPI and below [facility] Past Medical History Medical History Atrial fibrillation Cardiomyopathy History of cardioversion Hyperlipidemia Neuropathy Surgical History Surgical History H/O cardiac radiofrequency ablation History of loop recorder It is nonfunctioning but he still has it inside of him. 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 The right when was done twice because it was popping out of the socket and he has a left 1 done once Inguinal hernia of left side without obstruction or gangrene Family History Family History Father Lung cancer Mother COPD (chronic obstructive pulmonary disease) Cardiomyopathy Heart valve insufficiency Asthma Sibling H/O heart artery stent Obese Social History Social History Smoking status: Never smoker Alcohol intake: current Alcohol use details: 2 DRINKS/MONTH Substance use: never Living arrangements: with family Additional living arrangements comments: [facility] [phone] Gender identity (if verbalized by the patient): Male Spiritual care concerns: No Exam Narrative: General appearance: Well-developed, well-nourished Skin: Normal color Head: Normocephalic, nontraumatic Eyes: Clear conjunctiva ENT: Oropharynx normal, ears normal, nose normal Neck: Supple, nontender Chest and respiratory: Airway patent, no respiratory distress, no accessory muscle use Heart: Regular rate/rhythm Abdomen: Soft, nontender, no organomegaly, quiet bowel sounds Vascular: Normal peripheral pulses, normal capillary refill. Musculoskeletal: Left lower extremity is shorter compared to the right 1, deformity at the hip area, severe diffuse tenderness at the left hip Neurologic: Alert and oriented ?3, EDUCATION ADVISER is normal as tested, no gross motor deficit Course Vital Signs Vital signs: Vital Signs Temperature 36.5 C 06/29/24 16:53 P
[2024-06-29] MEDS: MORPHINE SULFATE (*CRX) 4 MG/ML INJ IV PUSH (17:31)
[2024-06-29] MEDS: ONDANSETRON INJ 4 MG/2 ML VIAL IV PUSH (17:31)
[2024-06-29] MEDS: HYDROmorphone HCL INJ (*CRX) 1 MG/ML SYR 0.5 MG IV PUSH (18:16)
[2024-06-29] MEDS: PROPOFOL IV EMULSION 200 MG/20 ML VIAL 180 MG IV PUSH (18:45)
--- NOTE | 2024-06-29 19:23 | PC.NURSE ---
1835: Suction set up, BVM set up, CO2 applied, pt on monitor, a&ox4, Dr. Bernard at bedside. 1845: 140mg IVP Propofol pushed by Dr. Bernard 1848: Pt oxygen saturation dropped to 76% on room air. Pt non-arousable. ED Rn Clive started bagging patient with BVM at 15L. Oxygen increased to 100%. 1853: Stopped bagging pt, oxygen saturation maintained at 100%. 1855: Pt arousable to verbal stimuli.
== END 2024-06-29 20:27 | disposition home or self-care (01) ==
PROVIDERS: Emergency Provider Emergency Medicine; PCP Internal Medicine
DX: S73.035A Other anterior dislocation of left hip, initial encounter (principal); X58.XXXA Exposure to other specified factors, initial encounter
CPT/HCPCS: 27266; 73501; 73502; 96374; 96375; 99285; J1170; J2270; J2405; J2704

== ENCOUNTER 2024-08-18 18:14 | Emergency (ER) | payer OTHER, SELFPAY ==
--- NOTE | ~2024-08-18 | XR_ITS ---
HISTORY: fall, pain. SX ON ELBOW X2 YRS AGO COMPARISON: None TECHNIQUE: 3 views of the left elbow were performed FINDINGS: Hardware (screw and plate) fixation of the ulna/olecranon. Multiple well-corticated abnormal extraosseous structures within the distal humerus without overlying soft tissue swelling, likely chronic. No acute fractures are appreciated. Comparison with perioperative imaging is needed. IMPRESSION: As above. Reviewed, dictated and finalized at location A. GE DOOR SERVICE TECHNICIAN IMPRESSION: As above.
--- NOTE | ~2024-08-18 | CT_ITS ---
History: Fall PROCEDURE: CT head without contrast. COMPARISON: 08/27/2018 TECHNIQUE: Axial imaging of the head performed from the skull base to the vertex without IV contrast. Sagittal a nd coronal reformations obtained. DLP: 605 mGy-cm FINDINGS: The ventricles are normal in size, shape and position for patient's age. There is no mass, mass effect or midline shift. There is no abnormal extra-axial fluid collection or intracranial hemorrhage. Visualized paranasal sinuses are clear. The mastoid air cells are well aerated. No acute displaced fractures within the overlying cranium. Impression: No acute intracranial hemorrhage or suspicious mass effect. Reviewed, dictated and finalized at location A. SE COOKER Impression: No acute intracranial hemorrhage or suspicious mass effect.
--- NOTE | ~2024-08-18 | CT_ITS ---
CT facial & cervical spine wo Ordering provider: Mary Nuñez History: fall, hi, on eliquis, lac L eyebrow . Comparison: None. Technique: Thin slice axial CT of the facial bones and cervical spine was performed without contrast. Coronal and sagittal reformatted images were also obtained. . The dose-length product was 318.47 mG y-cm. FINDINGS: PARANASAL SINUSES: Well aerated. BONES: No acute facial fracture including no acute nasal bone fracture. ORBITS AND SUPERFICIAL SOFT TISSUES: The optic globes and orbits are unremarkable. The superficial so ft tissues are asymmetric, demonstrating a small hematoma lateral and anterior to the left orbit. No radiopaque foreign body is identified within the asymmetric soft tissues. VISUALIZED MASTOIDS: Well aerated. LIMITED VISUALIZED BRAIN PARENCHYMA: Unremarkable CERVICAL SPINE FINDINGS: Straightening and reversal of the normal curvature of the cervical spine is identified likely postsur gical. Fixation hardware at the levels of 3, C4, and C5 with cervical fusion. Degenerative disease is identified within the levels of C5/C6, C6/C7 and C7/T1. Significant degenerative disease is identified with facet arthropathy, ankylosis and osteophyte forma tion. Laminectomy is identified within the vertebral bodies of C6 and C7. No acute fractures are present. The bilateral lung apices are unremarkable. No soft tissue abnormality is present. The airway is patent. Impression: Straightening and reversal of the normal curvature of the cervical spine, likely postsurgical in orig in. No acute fracture is identified. IMPRESSION: No facial fracture. Reviewed, dictated and finalized at location A. ER / WELDER Impression: Straightening and reversal of the normal curvature of the cervical spine, likel y postsurgical in origin. No acute fracture is identified. IMPRESSION: No facial fracture.
[2024-08-18 18:26] VITALS: BP 129/79; PULSE 59; RESP 20; TEMP 36.7; O2SAT 99
--- NOTE | 2024-08-18 18:37 | ED.HEATRA ---
HPI - Head Injury General Chief complaint: Head Injury <KRYSTIN Blanton Last Filed: 08/18/24 18:40> Stated complaint: fall, head injury <KRYSTIN Blanton Last Filed: 08/18/24 18:40> Time Seen by Provider: 08/18/24 18:32 <KRYSTIN Blanton Last Filed: 08/18/24 18:40> Focused HPI: patient is a 74-year-old male who presents the ED with report of a head injury. Patient reports he had his left hip replaced 1 month ago and has had some persistent difficulty with ambulating. He was using his walker today when he turned and lost his balance causing him to fall. he did hit his head and sustained a laceration above his left eyebrow. Denied LOC. He also c/o pain to his left elbow. Denies neck or back pain. Denies hip pain. Denies dizziness, lightheadedness, vision changes, nausea. Tetanus UTD. GENERAL: Elderly, and in no acute distress. HEAD: Normocephalic EYES: PERRL/EOMI, conjunctiva clear. Swelling and bruising beginning in L periorbital region. approx 3cm curvilinear laceration above L outer eyebrow, no active bleeding. CHEST: Clear to auscultation. ?No respiratory distress. HEART: Regular rate and rhythm.? MSK: Small abrasion to L olecranon with mild swelling and focal ttp in L elbow joint. NEURO: ?Alert and oriented x3. Patient screened in triage and initial orders placed.? ?Additional care and disposition to be based upon?diagnostic testing and treatment. <KRYSTIN Blanton Last Filed: 08/18/24 18:40> Focused HPI: patient is a 74-year-old male who presents the ED with report of a head injury. Patient reports he had his left hip replaced 1 month ago and has had some persistent difficulty with ambulating. He was using his walker today when he turned and lost his balance causing him to fall. He did hit his head and sustained a laceration above his left eyebrow. Denied LOC. He also c/o pain to his left elbow. Denies neck or back pain. Denies hip pain. Denies dizziness, lightheadedness, vision changes, nausea. Tetanus UTD. GENERAL: Elderly, and in no acute distress. HEAD: Normocephalic EYES: PERRL/EOMI, conjunctiva clear. Swelling and bruising beginning in L periorbital region. approx 3cm curvilinear laceration above L outer eyebrow, no active bleeding. CHEST: Clear to auscultation. ?No respiratory distress. HEART: Regular rate and rhythm.? MSK: Small abrasion to L olecranon with mild swelling and focal ttp in L elbow joint. NEURO: ?Alert and oriented x3. Patient screened in triage and initial orders placed.? ?Additional care and disposition to be based upon?diagnostic testing and treatment. <KRYSTIN Watkins Last Filed: 08/18/24 21:01> Source: patient <KRYSTIN Blanton Last Filed: 08/18/24 18:40> Mode of arrival: wheelchair <KRYSTIN Blanton Last Filed: 08/18/24 18:40> Limitations: no limitations <KRYSTIN Blanton Last Filed: 08/18/24 18:40> Related Data Home medications: Home Medications Medication Instructions Recorded Confirmed apixaban 5 mg tablet (Eliquis) 5 mg PO BID 05/28/20 03/06/24 pravastatin 20 mg tablet 20 mg PO QAM 05/28/20 03/06/24 sotalol 80 mg tablet 80 mg PO QAM 05/28/20 03/06/24 eszopiclone 3 mg tablet 1 mg PO DAILY 05/01/21 03/06/24 pantoprazole 40 mg tablet,delayed 1 mg PO DAILY 05/01/21 03/06/24 release duloxetine 30 mg capsule,delayed 30 mg PO DAILY 03/06/24 03/06/24 release methocarbamol 500 mg tablet 1,000 mg PO TID 03/06/24 03/06/24 metoprolol tartrate 100 mg tablet mg 03/06/24 montelukast 10 mg tablet 10 mg PO DAILY 03/06/24 03/06/24 oxybutynin chloride 10 mg 10 mg PO DAILY 03/06/24 03/06/24 tablet,extended release 24 hr pravastatin 40 mg tablet mg 03/06/24 pregabalin 225 mg capsule 225 mg PO BID 03/06/24 03/06/24 <KRYSTIN Blanton Last Filed: 08/18/24 18:40> Allergies/Adverse reactions: Allergies Allergy/AdvReac Type Severity Reaction Status Date / Time ketamine AdvReac Severe Hallucinati Verified 06/10/24 10:51 ng <KRYSTIN Blanton Last Filed: 08/18/24 18:40> Review of Systems Review of Systems: CONSTITUTIONAL: Denies fever EYES: Denies visual changes CARDIOVASCULAR: Denies chest pain RESPIRATORY: Denies dyspnea. GASTROINTESTINAL: Denies vomiting MUSCULOSKELETAL: Denies back pain NEUROLOGIC: Denies numbness, or weakness. <KRYSTIN Watkins Last Filed: 08/18/24 21:01> All systems reviewed & are unremarkable except as noted in HPI and below <KRYSTIN Watkins Last Filed: 08/18/24 21:01> [facility] Past Medical History Medical History: Medical History Atrial fibrillation Cardiomyopathy History of cardioversion Hyperlipidemia Neuropathy <KRYSTIN Blanton Last Filed: 08/18/24 18:40> Surgical History Surgical History: Surgical History H/O cardiac radiofrequency ablation History of loop recorder It is nonfunctioning but he still has it inside of him. 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 The right when was done twice because it was popping out of the socket and he has a left 1 done once Inguinal hernia of left side without obstruction or gangrene <KRYSTIN Blanton Last Filed: 08/18/24 18:40> Family History Family History: Family History Father Lung cancer Mother COPD (chronic obstructive pulmonary disease) Cardiomyopathy Heart valve insufficiency Asthma Sibling H/O heart artery stent Obese <KRYSTIN Blanton Last Filed: 08/18/24 18:40> Social History Social History: Social History Smoking status: Never smoker Alcohol intake: current Alcohol use details: 2 DRINKS/MONTH Substance use: never Living arrangements: with family Additional living arrangements comments: [facility] [phone] Gender identity (if verbalized by the patient): Male Spiritual care concerns: No <KRYSTIN Blanton Last Filed: 08/18/24 18:40> Exam Narrative: GENERAL: Elderly, well-nourished, and in no acute distress. HEAD: Normocephalic. 3cm linear laceration into subcutaneous tissue to the left eyebrow EYES: PERRLA and EOMI. ENT: Nares clear, no rhinorrhea or epistaxis. Mucous membranes moist. Oropharynx without tonsillar hypertrophy exudate or other lesions. Bilateral TMs pearly acosta non-bulging NECK: Supple. No adenopathy or masses. CHEST: Clear to auscultation. No respiratory distress. No wheezes rales or rhonchi HEART: Regular rate and rhythm. No murmur heard. Normal peripheral pulses. EXTREMITIES: Normal range of motion. No obvious deformity SKIN: Warm, dry, no rash. NEURO: No focal deficits. Alert and oriented x3. Cranial nerves 2-12 grossly intact PSYCH: Normal mood and affect <KRYSTIN Watkins Last Filed: 08/18/24 21:01> Course Course Emergency Course: Patient updated on his workup and agrees with plan of care <KRYSTIN Watkins Last Filed: 08/18/24 21:01> Vital Signs Vital signs: Vital Signs Temperature 98.0 F 08/18/24 18:26 Pulse Rate 59 L 08/18/24 18:26 Respiratory Rate 20 08/18/24 18:26 Blood Pressure 129/79 08/18/24 18:26 Pulse Oximetry 99 08/18/24 18:26 Oxygen Delivery Room Air 08/18/24 18:26 Temperature 98.0 F 08/18/24 18:26 Pulse Rate 59 L 08/18/24 18:26 Respiratory Rate 20 08/18/24 18:26 Blood Pressure 129/79 08/18/24 18:26 Pulse Oximetry 99 08/18/24 18:26 Oxygen Delivery Room Air 08/18/24 18:26 <KRYSTIN Blanton Last Filed: 08/18/24 18:40> Vital Signs Temperature 98.0 F 08/18/24 18:26 Pulse Rate 59 L 08/18/24 18:26 Respiratory Rate 20 08/18/24 18:26 Blood Pressure 129/79 08/18/24 18:26 Pulse Oximetry 99 08/18/24 18:26 Oxygen Delivery Room Air 08/18/24 18:26 Temperature 98.0 F 08/18/24 18:26 Pulse Rate 59 L 08/18/24 18:26 Respiratory Rate 20 08/18/24 18:26 Blood Pressure 129/79 08/18/24 18:26 Pulse Oximetry 99 08/18/24 18:26 Oxygen Delivery Room Air 08/18/24 18:26 <KRYSTIN Watkins Last Filed: 08/18/24 21:01> Procedures Laceration Laceration 1: Date: 08/18/24 <KRYSTIN Watkins Last Filed: 08/18/24 21:01> Time: 20:39 <KRYSTIN Watkins Last Filed: 08/18/24 21:01> Site: face <KRYSTIN Watkins Last Filed: 08/18/24 21:01> Side (If applicable): left <KRYSTIN Watkins Last Filed: 08/18/24 21:01> Size (cm): 3 <KRYSTIN Watkins Last Filed: 08/18/24 21:01> Description: linear <KRYSTIN Watkins Last Filed: 08/18/24 21:01> Depth: simple, single layer <KRYSTIN Watkins Last Filed: 08/18/24 21:01> Local Anesthetic: lidocaine 1% and with epi <KRYSTIN Watkins Last Filed: 08/18/24 21:01> Amount of anesthesia used (mL): 2 <KRYSTIN Watkins Last Filed: 08/18/24 21:01> Pre-repair: wound explored and irrigated <KRYSTIN Watkins Last Filed: 08/18/24 21:01> ====== Skin Level ======: Skin layer closed with: nylon <KRYSTIN Watkins Last Filed: 08/18/24 21:01> Size (cm): 5-0 <KRYSTIN Watkins Last Filed: 08/18/24 21:01> Number of sutures: 4 <KRYSTIN Watkins Last Filed: 08/18/24 21:01> Technique: simple, interrupted <KRYSTIN Watkins Last Filed: 08/18/24 21:01> ====== Subcutaneous Layer ======: ====== Muscle Layer ======: ====== Tendon Layer ======: MDM - Head Injury MDM Narrative Medical decision making narrative: MSE by AMARJIT in triage. <KRYSTIN Blanton Last Filed: 08/18/24 18:40> MSE by AMARJIT in triage. Patient presents to the ER for a fall today with head injury. He is neurologically intact. Vitals are stable. CT brain, cervical spine and facial bones without acute findings. Left elbow x-ray without acute osseous abnormalities. His wound was irrigated and closed with sutures. He is up-to-date on tetanus vaccination. He is to follow up with primary provider. He was given warnings to return to the ER <KRYSTIN Watkins Last Filed: 08/18/24 21:01> Differential Diagnosis Differential diagnosis: Likely concussion without loss of consciousness, closed head injury, subdural hematoma and other (contusion, elbow fracture, cervical spine fracture, facial fracture) <KRYSTIN Watkins Last Filed: 08/18/24 21:01> Imaging Data Radiologist's impression: ITS Impressions Elbow X-Ray 08/18/24 19:08 IMPRESSION: As above. Head CT 08/18/24 19:21 Impression: No acute intracranial hemorrhage or suspicious mass effect. Head/Cervical Spine/Facial Bones CT 08/18/24 20:27 Impression: Straightening and reversal of the normal curvature of the cervical spine, likely postsurgical in origin. No acute fracture is identified. IMPRESSION: No facial fracture. <Leydi Bernabe PA-C - Last Filed: 08/18/24 21:01> Critical Care Time Critical Care Time Critical Care Time: No <Leydi Bernabe PA-C - Last Filed: 08/18/24 21:01> Discharge Plan Discharge Clinical Impression: Laceration Head injury Qualifiers: Encounter type: initial encounter Qualified Code(s): S09.90XA - Unspecified injury of head, initial encounter <KRYSTIN Blanton Last Filed: 08/18/24 18:40> Patient Disposition: Home, Self-Care <KRYSTIN Blanton Last Filed: 08/18/24 18:40> Condition: Stable <KRYSTIN Blanton Last Filed: 08/18/24 18:40> Instructions: Laceration (ED), Head Injury (ED) <KRYSTIN Blanton Last Filed: 08/18/24 18:40> Additional Instructions: Return to the emergency department if you experience fever, redness or swelling of your wound, abnormal drainage from your wound, vomiting, numbness, weakness, or any other symptoms that are concerning to you. Apply antibiotic ointment daily. Do not soak the wound. Clean with mild soap and water daily. Rest. Ice to the area. Over the counter pain medication as needed Follow-up with your primary care doctor for suture removal in 3-5 days. <KRYSTIN Blanton Last Filed: 08/18/24 18:40> Prescriptions: No Action pantoprazole 40 mg tablet,delayed release (DR/EC) 1 mg PO DAILY eszopiclone 3 mg tablet 1 mg PO DAILY methocarbamol 500 mg tablet 1,000 mg PO TID oxybutynin chloride 10 mg tablet extended release 24hr 10 mg PO DAILY montelukast 10 mg tablet 10 mg PO DAILY duloxetine 30 mg capsule,delayed release(DR/EC) 30 mg PO DAILY pregabalin 225 mg capsule 225 mg PO BID pravastatin 40 mg tablet metoprolol tartrate 100 mg tablet prednisone 20 mg tablet 20 mg PO DAILY Qty: 5 0RF sotalol 80 mg tablet 80 mg PO QAM pravastatin 20 mg tablet 20 mg PO QAM Eliquis 5 mg tablet 5 mg PO BID Hold Instructions: Resume on 08/15/20. <Mary Nuñez PA-C - Last Filed: 08/18/24 18:40> Follow-up/Referrals: Lexy,Guido Sanchez MD [Primary Care Provider] - <Mary Nuñez PA-C - Last Filed: 08/18/24 18:40>
[2024-08-18 21:22] VITALS: BP 160/94; PULSE 69; RESP 14; TEMP 36.6; O2SAT 96
== END 2024-08-18 21:27 | disposition home or self-care (01) ==
PROVIDERS: Emergency Provider Physician Assistant; PCP Internal Medicine
DX: S01.112A Laceration without foreign body of left eyelid and periocular area, initial encounter (principal); S59.902A Unspecified injury of left elbow, initial encounter; I48.91 Unspecified atrial fibrillation; I42.9 Cardiomyopathy, unspecified; E78.5 Hyperlipidemia, unspecified; G62.9 Polyneuropathy, unspecified; Z96.611 Presence of right artificial shoulder joint; Z96.643 Presence of artificial hip joint, bilateral; W18.39XA Other fall on same level, initial encounter
CPT/HCPCS: 12013; 70450; 70486; 72125; 73080; 99284

== ENCOUNTER 2025-04-08 11:47 | Outpatient (CLI) | payer OTHER, SELFPAY ==
--- NOTE | ~2025-04-08 | MR_ITS ---
MRI of the cervical spine Clinical History: Chronic neck pain Technique: Axial T2-weighted and gradient images, and sagittal T1-weighted, T2-weighted, and STIR hussein ges were acquired. Findings: No acute fracture or subluxation. There is reversal normal cervical lordosis. There is ante rior and interbody fusion from C3 through C6. No suspicious bone marrow signal abnormality seen. At C2-C3, there is central disc bulge with moderate facet arthropathy. No spinal canal stenosis or co rd compression. Neural foramina appear preserved. At C3-C4, there is no disc bulge or herniation. There is bilateral facet arthropathy, right worse marlene n left. There is bilateral neural foraminal narrowing, right worse than left. No canal stenosis or co rd compression. At C4-C5, there is no significant disc bulge or herniation. No spinal canal stenosis or cord compress ion. There is bilateral facet arthropathy with bilateral neural foraminal narrowing. At C5-C6, there is no definite canal stenosis or cord compression. There is bilateral facet arthropat hy with probable minimal right neural foraminal narrowing. Left neural foramen preserved. At C6-C7, there is no disc bulge or herniation. No spinal canal stenosis, cord compression, or neural foraminal narrowing. There is increased signal in the spinal cord at the C7 level, which could reflect chronic myelomalaci a. Paravertebral soft tissues are unremarkable. Laminectomy defects noted on the right side at C7 and T1. Impression: Increased cord signal with mildly small caliber cord at the C7 level is most compatible with chronic myelomalacia change. Anterior fusion from C3 through C6. Mild spondylosis overall, with multilevel neural foraminal narrowing. Reviewed, dictated and finalized at [facility]. Impression: Increased cord signal with mildly small caliber cord at the C7 level is most co mpatible with chronic myelomalacia change. Anterior fusion from C3 through C6. Mild spondylosis overall, with multilevel neural foraminal narrowing.
== END 2025-04-08 11:48 | disposition home or self-care (01) ==
LOC: MICIMG 11:48
PROVIDERS: PCP Internal Medicine; Visit Provider Internal Medicine
DX: S14.157A Other incomplete lesion at C7 level of cervical spinal cord, initial encounter (principal); X58.XXXA Exposure to other specified factors, initial encounter; Z98.1 Arthrodesis status; M47.812 Spondylosis without myelopathy or radiculopathy, cervical region; M48.02 Spinal stenosis, cervical region; R13.19 Other dysphagia
CPT/HCPCS: 72141

== ENCOUNTER 2025-04-28 16:44 | Outpatient (CLI) | payer OTHER, SELFPAY ==
--- NOTE | ~2025-04-28 | CT_ITS ---
EXAMINATION: CT cervical spine wo con DATE: 04/28/2025 17:39 INDICATION: Cervical spondylosis TECHNIQUE: Computed tomography (CT) of the cervical spine was performed without intravenous contrast. The dose-length product was 579.95 mGy-cm. COMPARISON: None FINDINGS: The ring of C1 is developmentally unfused anteriorly and posteriorly. There is also a chronic nondisp laced and nonunited fracture laterally at the ring of C1. Reversal of the normal cervical lordosis. C 3-C7 anterior spinal fusion metallic fixation at C5-C6 and with interbody bone grafting and anterior plate-screw fixation at C3-C4 and C4-C5. Bridging anterior osteophytes at C7-T1 and T2-T3. Plates and screws spanning right-sided hemilaminectomies at C6 and C7. Bridging anterior osteophytes at C2-C3 a nd T1-T2. C2-C3: Disc bulge and small amount of ossification along the overlying posterior longitudinal ligamen t. There is mild bilateral uncovertebral joint osteoarthritis. There is moderate right and severe lef t facet joint osteoarthritis. There is mild left neural foraminal stenosis. There is mild central can al stenosis. C3-C4: Disc space is fused. There is severe bilateral facet joint osteoarthritis with fusion across t he lateral margins of the facet joints. There is mild left and mild to moderate right neural foramina l stenosis. There is mild central canal stenosis. C4-C5: Disc space is fused. There is severe right and moderate left facet joint osteoarthritis also w ith contusion along the lateral margins of the facet joints. There is mild bilateral neural foraminal stenosis. There is mild central canal stenosis. C5-C6: Disc space is fused. There is moderate bilateral facet joint osteoarthritis also with fusion a long the margins. There is mild bilateral neural foraminal stenosis. There is no central canal stenos is. C6-C7: Disc space is fused. There is moderate bilateral facet joint osteoarthritis with fusion along the margins. There is moderate to severe bilateral neural foraminal stenosis. There is no central can al stenosis. C7-T1: The disc does not extend beyond the endplate margin. There is mild bilateral uncovertebral olga nt osteoarthritis. There is mild left and moderate right facet joint osteoarthritis. There is mild le ft neural foraminal stenosis. There is no central canal stenosis. IMPRESSION: 1. Severe cervical spondylosis with anterior and posterior fusion from C3-C7, instrumented anteriorly at C3-C5. 2. 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 Reviewed, dictated and finalized at location A. IMPRESSION: 1. Severe cervical spondylosis with anterior and posterior fusion from C3-C7, i nstrumented anteriorly at C3-C5. 2. 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
--- OUTSIDE RECORDS SUMMARY | 2025-04-28 16:57 | XMS_ITS | Encounter Summary ---
Author Organization [facility] Facility Care Team Providers Care Websphere Portal Architect Name Role Phone Guido Pugh MD Primary Care Provider [phone] Mark Mcfarlane MD Unavailable [phone] Encounter Details Date Type Department Care Team (Latest Contact Info) Description 01/05/2017 Orders Only [facility]IN[facility] ProviderJohn MD [address] [place] [id number] Social History Tobacco Use Types Packs/Day Years Used Date Smoking Tobacco: Never Assessed Sex and Gender Information Value Date Recorded Sex Assigned at Not on file 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 Historical Provider [facility] JENISE JONES Final Result documented in this encounter Visit Diagnoses Not on filedocumented in this encounter Additional Health Concerns Infection Onset Date Last Indicated Resolved Time MRSA Comment:h/o staph infecion 04/25/2020 04/24/2020 05/29/2021 5: 00 AM CDT documented as of this encounter Care Teams Websphere Portal Architect Relationship Specialty Start Date End Date Guido Pugh MD [address] [place] [address] PCP - General 09/13/17 Mark Mcfarlane MD [address] [place] [address] Parcel Post Carrier Cardiology 05/31/19 documented as of this encounter
--- OUTSIDE RECORDS SUMMARY | 2025-04-28 16:57 | XMS_ITS | Encounter Summary ---
Author Organization 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 us Historical Provider Final Res ult documented in this encounter Visit Diagnoses Not on filedocumented in this encounter Additional Health Concerns Infection Onset Date Last Indicated Resolved Time MRSA Comment:h/o staph infecion 04/25/2020 04/24/2020 05/29/2021 5: 00 AM CDT documented as of this encounter Care Teams Synthetic Department Supervisor Relationship Specialty Start Date End Date Guido Pugh MD [address] [place] [address] PCP - General 09/13/17 Mark Mcfarlane MD [address] [place] [address] [address] [employer] Principal Cardiology 05/31/19 documented as of this encounter
--- OUTSIDE RECORDS SUMMARY | 2025-04-28 16:57 | XMS_ITS | Encounter Summary ---
Author Organization [facility] Facility Care Team Providers Care Visitor Services Information Assistant Name Role Phone Guido Pugh MD Primary Care Provider [phone] Mark Mcfarlane MD Unavailable [phone] Encounter Details Date Type Department Care Team (Latest Contact Info) Description 05/08/2014 Orders Only [facility] CLINCON[facility] ProviderJohn MD [address] [place] [id number] Social History Tobacco Use Types Packs/Day Years Used Date Smoking Tobacco: Never Assessed Sex and Gender Information Value Date Recorded Sex Assigned at Not on file 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 Historical Provider Final Res ult * SCAN - LABS (04/10/2016 12:00 AM CDT) Narrative 04/10/2016 12:00 AM CDT Ordered by an unspecified provider. Historical Provider MD Final Res ult documented in this encounter Visit Diagnoses Not on filedocumented in this encounter Additional Health Concerns Infection Onset Date Last Indicated Resolved Time MRSA Comment:h/o staph infecion 04/25/2020 04/24/2020 05/29/2021 5: 00 AM CDT documented as of this encounter Care Teams Visitor Services Information Assistant Relationship Specialty Start Date End Date Guido Pugh MD [address] [place] [address] PCP - General 09/13/17 Mark Mcfarlane MD [address] [place] [address] Cardiovascular Or Nurse Cardiology 05/31/19 documented as of this encounter
--- OUTSIDE RECORDS SUMMARY | 2025-04-28 16:57 | XMS_ITS | Patient Health Record ---
Author Organization [facility] Address [address] [place], [place] [id number] Care Team Providers Care Pie Bakery Laborer Name Role Phone KERRIE Rainey Unavailable [phone] Varghese Belcher Unavailable Unavailable Reason For Referral No Information Plan Of Treatment No Information Insurance Providers Payer Name Payer Address Payer Phone Subscriber Number Group Number Insured Name Patient Relationship to Insured Coverage Start Date Coverage End Date [employer]. [address] [place] [id number] BRIGITTE OLIVEIRA Self - patient is the insured
--- OUTSIDE RECORDS SUMMARY | 2025-04-28 16:57 | XMS_ITS | Clinical Summary ---
Author Organization [facility] [place] Address [address] [place] [address] Care Team Providers Care Asset Protection Officer Name Role Phone Edi Funez RN Unavailable [phone] Guido Pugh MD Primary Care Provider [phone] Deneen Espinosa RN Unavailable Unavailab Mark Estes MD Unavailable [phone] Source Comments [facility],non-owned Affiliates and Associated Physician Practices is amultiple site organization consisting of ambulatory clinics and hospital sitesin [place], [place], [place] and [place]. This disclosure is being madepursuant to the Care Everywhere program and may not contain all information available regarding this patient. Last updated 18.[facility] Allergies Active Allergy Reactions Criticality Noted Date Comments Amiodarone Other Low 01/02/2017 Pulmonary toxicity Ketamine Unknown,Psychiatric Medium 01/02/2017 Hallucinations.Verbalizes had a bad experience with Ketamine it and refuses to take it. Medications * Be aware that medications may not be up to date on this document. Alwaysverify current medications with the patient. furosemide (LASIX) 40 MG tablet Take 1 (one) tablet by mouth every 7 days (once a week) or Thursday 5 Active pravastatin (PRAVACHOL) 20 MG tablet Take 1 (one) tablet by mouth once daily 8 Active ELIQUIS 5 MG tablet Take 1 (one) tablet by mouth 2 times daily 1 Active metoprolol tartrate IR (Lopressor) 100 MG tablet Take 1 (one) tablet by mouth 2 times daily 3 Active pregabalin (Lyrica) 300 MG capsule Take 1 (one) capsule by mouth 2 times daily 3 Active DULoxetine (Cymbalta) 30 MG capsule Take 1 (one) capsule by mouth once daily 3 Active montelukast (Singulair) 10 MG tablet Take 1 (one) tablet by mouth once daily 3 Active escitalopram (Lexapro) 10 MG tablet Take 1 (one) tablet by mouth once daily Active eszopiclone (Lunesta) 3 MG tablet Take 1 (one) tablet by mouth at bedtime Active omeprazole (PriLOSEC) 20 MG capsule Take 1 (one) capsule by mouth once daily 4 Active pregabalin (Lyrica) 50 MG capsule Take 1 (one) capsule by mouth 2 times daily for 30 days 60 capsule 4 Active famotidine (Pepcid) 20 MG tablet Take 1 (one) tablet by mouth every 12 hours for 30 days 60 tablet 4 Active acetaminophen (Tylenol) 500 MG tablet Take 2 (two) tablets by mouth every 8 hours as needed for Fever or Pain Maximum allowable Acetaminophen amount = 4 Grams (4000 mg) / 24 hours. 5 Active oxyCODONE, immediate release, (Roxicodone) 5 MG tabletIndicatio ns:Closed fracture of proximal end of left ulna, unspecified fracture morphology, initial encounter Take 1 (one) tablet by mouth every 6 hours as needed for Pain 30 tablet 5 Active polyethylene glycol 3350 (Miralax) 17 GM/SCOOP powder Take 17 (seventeen) g by mouth once daily 5 Active pantoprazole (Protonix) 40 MG packet Take 1 (one) packet by mouth once daily Active finasteride (Proscar) 5 MG tablet Take 1 (one) tablet by mouth once daily Active oxyCODONE, immediate release, (Roxicodone) 5 MG tabletIndicatio ns:Closed fracture of olecranon process of left ulna with routine healing, subsequent encounter Take 1 (one) tablet by mouth every 6 hours as needed for Pain 30 tablet 5 Active Active Problems Problem Noted Date Diagnosed Date Left hip pain 04/18/2024 Closed dislocation of left hip, initial encounte r 04/18/2024 Decreased hearing 10/30/2020 Overview (10/30/2020): Sep 18, 2020 Entered By: MELISSA SWARTZ Comment: Pt has significant decreased sensation X 4 extremities. Family history of peripheral neuropathy 10/30/19 21 Generalized osteoarthritis 10/30/2020 Overview (10/30/2020): Sep 18, 2020 Entered By: MELISSA SWARTZ Comment: lt TSR, LINDA TKR, C, T and Lumbar fusions w/hardware, History of atrioventricular trevon ablation 10/30 Atrial fibrillation 10/30/2020 Overview (10/30/2020): Sep 18, 2020 Entered By: MELISSA SWARTZ Comment: Multiple cardioversions x 5 events, ablation done 2012 Osteoarthrosis 10/30/2020 Closed fracture of left olecranon process 2019 Heterotopic ossification 09/17/2020 Closed fracture of upper end of left ulna 2019 Anemia determined by examination 04/25/2020 COPD (chronic obstructive pulmonary disease) 11/2019 Disorder of adrenal gland 10/13/2019 Major depressive disorder, recurrent episode, mo derate 10/13/2019 Other specified polyneuropathies 10/13/2019 Class 2 severe obesity due t o excess calories with serious comorbidity and body mass index (BMI) of 38.0 to 38.9 in adult 06/15/2019 Hyperlipidemia, unspecified 05/11/2019 Spinal stenosis of lumbar region 05/11/2019 Other dysphagia 08/17/2018 Aortic valve sclerosis 07/05/2018 Left atrial dilation 07/05/2018 Mild aortic regurgitation 07/05/2018 Hip joint instability, left 02/23/2018 Elevated bilirubin 01/06/2018 Incontinence of feces 11/12/2017 Inguinal hernia 09/23/2017 HTN (hypertension) 08/20/2017 DAYA on CPAP 08/20/2017 Obstructive sleep apnea syndrome 08/20/2017 Insomnia 06/30/2017 Abscess of chest wall 05/01/2017 Other specified abnormal findings of blood chemi stry 04/24/2017 Overview (06/05/2020): Apparently he had increased LFTs and his Lipitor was discontinued by Dr. Patino. Cervical cord myelomalacia 04/11/2017 Hemangioma of spine 02/17/2017 S/P lumbar spinal fusion 02/17/2017 Arthrodesis status 02/17/2017 S/P bilateral cataract extraction 01/09/2017 Vertigo 12/18/2016 Cataract, nuclear, bilateral 12/17/2016 Hypokalemia 11/05/2016 Chronic low back pain without sciatica 7 Dyslipidemia 04/11/2016 Benign essential hypertension 04/11/2016 Status post placement of implantable loop record er 03/23/2016 Nuclear cataract, bilateral 03/21/2016 Nuclear nonsenile cataract 03/21/2016 Hyperlipidemia 11/05/2015 Arteriosclerosis of coronary artery 11/05/2015 Numbness of left hand 11/05/2015 Wears glasses 11/05/2015 Osteoarthritis, hip, bilateral 11/05/2015 Osteoarthritis of shoulder 11/05/2015 S/P reverse total shoulder arthroplasty, left Left rotator cuff arthropathy 02/20/2015 Rotator cuff (capsule) sprain 08/30/2014 Overview (08/12/2018): Overview: Had total left shoulder replacement 2 weeks ago Rotator cuff (capsule) sprain 08/30/2014 Overview (06/05/2020): Overview: Overview: Overview: Had total left shoulder replacement 2 weeks ago Cardiomyopathy 07/26/2014 DJD (degenerative joint disease) 07/26/2014 Erectile dysfunction 07/26/2014 S/P cervical spinal fusion Resolved Problems Problem Noted Date Diagnosed Date Resolved Date Paroxysmal atrial fibrillation 05/11/2020 12/16/2023 BMI 31.0-31.9,adult 06/15/2019 12/16/19 Spinal stenosis of lumbar region 05/11/2019 06/01/2019 Paroxysmal atrial fibrillation 05/11/2019 04/18/2024 Sagittal plane imbalance 08/17/2018 Chronic low back pain without sciatica 07/13/2018 06/01/2019 Loss of taste 12/29/2017 04/18/2024 Cervical myelopathy with cer vical radiculopathy 08/20/2017 08/17/2018 Persistent atrial fibrillation 08/20/2017 12/16/2023 Overview (08/12/2018): Overview: Persistent a fib, S/P PVI, posterior LA wall box lesion lines set,mitral isthmus ablation,LA floor roof and intra CS ablation On 10-10-14 Osteoarthritis of cervical s pine with myelopathy 04/11/2017 08/17/2018 Osteoarthritis of spine with radiculopathy, lumbar region 02/17/2017 08/17/2019 Screening for endocrine disorder 05/05/2016 12/16/2023 History of atrial fibrillation 04/11/2016 04/18/2024 Overview (06/05/2020): Patient had a loop recorder. In August he had a brief episode of A. fib. Patient currently taking the sotalol and atelectasis. Apparently the transmitter is not working. We discussed about removing the Linq device as he had it for 3 years. He wishes Persistent atrial fibrillation 11/05/2015 04/18/2024 Overview (06/05/2020): Overview: Overview: Overview: Persistent a fib, S/P PVI, posterior LA wall box lesion lines set,mitral isthmus ablation,LA floor roof and intra CS ablation On 10-10-14 Encounters Date Type Department Care Team Description 04/19/2025 11:27 AM CDT - 04/19/2025 11:59 PM T Hospital Encounter [facility] [address] [facility] 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, left, with nonunion, subsequent encounter 03/22/2025 12:05 PM CDT - 03/22/2025 11:59 PM CDT Hospital Encounter [facility] [address] [address] [place] [address] Serjio Miller MD Discharge Disposition: Home or Self Care 03/22/2025 12:00 PM CDT Office Visit [facility] - [facility] [address] [place] [phone] Serjio Miller MD Pate, Katherine M, PA-C 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, left, with nonunion, subsequent encounter (Primary Dx) 02/22/2025 Travel 02/20/2025 Orders Only [facility] [address] [place] [phone] Serjio Miller MD 02/01/2025 2:30 PM CDT - 02/01/2025 11:59 PM CDT Hospital Encounter [facility] OT [address] [place] [address] Mirian Garrison, MOLECULAR BIOLOGIST-Anya Celis, OT Discharge Disposition: Home or Self Care 02/01/2025 1:00 PM CDT Office Visit [facility] - [facility]opedics [address] [place] [address], [place] [phone] Serjio Miller MD 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 (F LUZONE; FLULAVAL; FLUARIX; AFLURIA QUADRIVALENT; 6MO+), 0.5 ML (IIV4) 08/21/2017 Pneumococcal Pcv13 Conj 05/31/2015 TDAP (7yrs+) 07/12/2012 ZOSTER VACCINE, LIVE 12/25/2010 Family History Medical History Relation Name Comments Hypertension Maternal Grandmother Cancer - Breast Neg Hx Cancer - Colon Neg Hx Cancer - Thyroid Neg Hx Relation Name Status Comments Father Maternal Grandmother Mother Social History Tobacco Use Types Packs/Day Years Used Date Smoking Tobacco: Never Smokeless Tobacco: Never Tobacco Cessation:Counseling Given: Not Answered Alcohol Use Standard Drinks/Week Comments Yes 0 (1 standard drink = 0.6 oz pur e alcohol) occasional AUDIT-C Answer Date Recorded Q1: How often do you have a drink containing alc ohol? Monthly or less 01/26/2025 Q2: How many drinks containi ng alcohol do you have on a typical day when you are drinking? 1 or 2 01/26/2025 Q3: How often do you have si x or more drinks on one occasion? Less than monthly 01/26/2025 Overall Financial Resource Strain (CARDIA) Answe r Date Recorded How hard is it for you to pa y for the very basics like food, housing, medical care, and heating? Not hard at all 07/15/2024 PHQ-2 Answer Date Recorded Patient Health Questionnaire-2 Score 2 06/25/2023 [facility] [place] [facility] Occupat ional [facility] - Occupational Stress Questionnaire Answer Date Recorded Do you feel stress - tense, restless, nervous, or anxious, or unable to sleep at night because your mind is troubled all the time - these days? Not at all 07/15/2024 Hunger Vital Sign Answer Date Recorded Within the past 12 months, y ou worried that your food would run out before you got the money to buy more. Never true 07/15/20 24 Within the past 12 months, t he food you bought just didn't last and you didn't have money to get more. Never true 07/15/2024 PRAPARE - Transportation Answer Date Re corded In the past 12 months, has l ack of transportation kept you from medical appointments or from getting medications? No 01/2024 In the past 12 months, has l ack of transportation kept you from meetings, work, or from getting things needed for daily living? No 07/15/2024 Housing Stability Vital Sign Answer Jelani e Recorded In the last 12 months, was t here a time when you were not able to pay the mortgage or rent on time? No 07/15/2024 In the last 12 months, how many places have you lived? 1 07/15/2024 In the last 12 months, was t here a time when you did not have a steady place to sleep or slept in a half-way (including now)? No 07/15/2024 Sex and Gender Information Value Date Recorded Sex Assigned at Not on file Legal Sex Male 5:04 AM SENSOR SPECIALIST Gender Identity Not on file Sexual Orientation Not on file Last Filed Vital Signs Vital Sign Reading Time Taken Comments Blood Pressure 131/71 01/26/2025 11:30 AM CDT Pulse 61 01/26/2025 11:30 AM CDT Temperature 36.6 C (97.9 F) 01/26/2025 11:20 AM CDT Respiratory Rate 12 01/26/2025 11:30 AM CDT Oxygen Saturation 92% 01/26/2025 11:30 AM CDT Inhaled Oxygen Concentration 98% 05/06/2019 3 :45 AM CDT Weight 122.9 kg (271 lb) 02/22/2025 12:55 PM CDT Height 177.8 cm (5' 10) 01/26/2025 6:13 AM CDT Body Mass Index 38.88 01/26/2025 6:13 AM CDT Plan of Treatment Upcoming Encounters Date Type Department Care Team (Late st Contact Info) Description 05/03/2025 12:00 PM CDT Office Visit [facility] - [facility] [address] [facility] [place] [address] Serjio Miller MD [address] [place] [address] OF ORTHOPEDIC SURGERY [place], [place] [phone] 11/21/2025 12:45 PM SENSOR SPECIALIST Office Visit [facility] - Orthopedic Surgery [address] [facility] [place] [address] Moses Lenz MD [address] [facility] [address] [place], [place] [phone] Health Maintenance Due Date Last Done Comments MEDICARE AWV 12 MONTHS 1950 HEPATITIS C SCREENING 07/10/1966 ZOSTER VACCINE (2 of 3) 02/19/2011 12/25/2010 PNEUMOCOCCAL VACCINE 50+ (2 of 2 - PPSV23, PCV20, or PCV21) 07/26/2015 05/31/2015 DTAP/TDAP/TD VACCINES (2 - Td or Tdap) 07/12/2022 07/12/2012 Respiratory Syncytial Virus (RSV) Vaccine Pt: or over 60 yrs (1 - 1-dose 75+ series) 2023 COVID-19 VACCINE (2 - season) 2024 05/31/2021 DEPRESSION SCREENING 10/12/2024 07/21/2023, 07/21/2023, 06/25/2023, Additional history exists INFLUENZA VACCINE (#1) 2025 , 10/02/2021, 08/29/2021, Additional history exists HEPATITIS B VACCINE Aged Out No longe r eligible based on patient's age to complete this topic HIB VACCINE Aged Out No longer eligi ble based on patient's age to complete this topic HPV VACCINE Aged Out No longer eligi ble based on patient's age to complete this topic MENINGOCOCCAL (Group B) VACCINE SHARED DECISION-MAKING Aged Out No longer eligible based on patient's age to complete this topic MENINGOCOCCAL GROUPS A/C/Y/W VACCINE Aged Out No longer eligible based on patient's age to complete this topic Goals Goal Patient Goal Type Associated Problems Recent Progress Patient-Stated? Author Mobility/ROM General Improving( 2:01 PM SENSOR SPECIALIST) No Brian Bowen RN Note: Expected end date: ongoing The goal is to maintain or improve your mobility at the optimum level for you. Interventions: PAIN General No Edinson Rabago RN Note: Expected end date: 01/29/2025 Patient's pain/discomfort is manageable. Interventions: Take pain medication as ordered PAIN General No Edinson Rabago RN Note: Expected end date: 04/15/2025 Patient's pain/discomfort is manageable. Interventions: Take pain medication as ordered Medical Devices Implanted Type Area Bass String Winder Device Identifier Shelf Expiration Date Model / Serial / Lot Implt Ceml Metaglene Implanted:Qty: 1 on 02/19/2015 by Cooper Soler MD at [facility] named [facility] Left: Shoulder [employer]uy [employer] 07/11/2019 1307-60-000 / / [id number] Locking Screw 24mm Implanted:Qty: 1 on 02/19/2015 by Cooper Soler MD at [facility] named [facility] Left: Shoulder [employer] 10/10/2019 [id number] / / [id number] Locking Screw 24mm Implanted:Qty: 1 on 02/19/2015 by Cooper Soler MD at [facility] named [facility] Left: Shoulder [employer] 10/10/2019 [id number] / / [id number] Locking Screw 24mm Implanted:Qty: 1 on 02/19/2015 by Cooper Soler MD at [facility] named [facility] Left: Shoulder [employer] 10/10/2019 [id number] / / [id number] Standard Glenosphere 42mm Implanted:Qty: 1 on 02/19/2015 by Cooper Soler MD at [facility] named [facility] Left: Shoulder [employer] 12/09/2019 [id number] / / [id number] Piphyse Modulaire Sz1/Cent Implanted:Qty: 1 on 02/19/2015 by Cooper Soler MD at [facility] named [facility] Left: Shoulder [employer] 09/10/2019 [id number] / / [id number] Cupule Humerale Standard 42+6mm Implanted:Qty: 1 on 02/19/2015 by Cooper Soler MD at [facility] named [facility] Left: Shoulder [employer] 07/11/2019 [id number] / / [id number] Tige Humerale Modulairee 14 Implanted:Qty: 1 on 02/19/2015 by Cooper Soler MD at [facility] named [facility] Left: Shoulder [employer] 11/10/2018 [id number] / / [id number] Sys Shld Tot Arthroplst Rev Implanted:Qty: 1 on 02/19/2015 by Cooper Soler MD at [facility] named [facility] Depuy Orthopedics Inc S4 [id number] / / Wax Bone 2.5gm Hmst Agnt Bswx Strl Lf Implanted:Qty: 1 on 08/20/2017 by Brigitte Chan MD at [facility] named [facility] N/A: Spine Cervical [employer] Inc 04/10/2020 [id number] / / [id number] Floseal Implanted:Qty: 1 on 08/20/2017 by Brigitte Chan MD at [facility] named [facility] N/A: Spine Cervical 04/10/2022 [id number] / / [id number] Lodortic Sr Cortical Block Implanted:Qty: 1 on 08/20/2017 by Brigitte Chan MD at [facility] named [facility] N/A: Spine Cervical [id number] / / [id number] Hugo Bone Void 1ml Dbm Grftn Algrf Ptty - [id number] Implanted:Qty: 1 on 08/20/2017 by Brigitte Chan MD at [facility] named [facility] N/A: Spine Cervical Spinal [employer] 12/31/2018 [id number] / [id number] / Lodortic Sr Cortical Block Implanted:Qty: 1 on 08/20/2017 by Brigitte Chan MD at [facility] named [facility] N/A: Spine Cervical 02/28/2020 [id number] / / [id number] [place]na Plate 36 Mm Implanted:Qty: 1 on 08/20/2017 by Brigitte Chan MD at [facility] named [facility] N/A: Spine Cervical Depuy Spine 036 / / [address] Screw Implanted:Qty: 6 on 08/20/2017 by Brigitte Chan MD at [facility] named [facility] N/A: Spine Cervical Depuy Spine 52-016 / / 18 Mm Rescue Screw Implanted:Qty: 1 on 08/20/2017 by Brigitte Chan MD at [facility] named [facility] N/A: Spine Cervical Depuy Spine 54-018 / / Floseal Implanted:Qty: 1 on 08/20/2017 by Brigitte Chan MD at [facility] named [facility] N/A: Spine Cervical 04/08/2019 [id number] / / [id number] Screw 7.5mm 45mm Spne Ma Solera Cd Hzn Implanted:Qty: 4 on 05/02/2019 by Brigitte Chan MD at [facility] N/A: Back Medtronic Sofamor [employer]ane[employer] Inc [id number] / / Screw 7.5x70mm Solera Implanted:Qty: 2 on 05/02/2019 by Brigitte Chan MD at [facility] N/A: Back Medtronic Inc [id number] / / Screw 6.5mm 50mm Spne Ma Solera Cd Hzn Implanted:Qty: 6 on 05/02/2019 by Brigitte Chan MD at [facility] N/A: Back Medtronic Sofamor [employer] Inc [id number] / / Screw 7.5mm 50mm Spne Ma Solera Cd Hzn Implanted:Qty: 3 on 05/02/2019 by Brigitte Chan MD at [facility] N/A: Back Medtronic [employer] [id number] / / Screw 6.5mm 45mm Spne Ma Solera Cd Hzn Implanted:Qty: 1 on 05/02/2019 by Brigitte Chan MD at [facility] N/A: Back Medtronic Sofamor [employer] Inc [id number] / / Interbody Fusion Device 10mm X 22mm X 12 Deg Implanted:Qty: 2 on 05/06/2019 by Brigitte Chan MD at [facility] N/A: Spine Medtronic Inc 02/01/2026 [id number] / / [id number] Screw Set Ti Spnl Brk Off Cd Hzn Implanted:Qty: 16 on 05/06/2019 by Brigitte Chan MD at [facility] N/A: Spine Medtronic Sofamor [employer]ane[employer] Inc [id number] / / Weston Dynamic Or Mis Implanted:Qty: 2 on 05/06/2019 by Brigitte Chan MD at [facility] N/A: Spine Medtronic Sofamor [employer] Inc [id number] / / Screw 3.5mm 24mm T15 Slf-Tap Lck Tpr Implanted:Qty: 2 on 09/28/2020 by Louie Albert MD at [facility] Left: Olecranon [employer] [id number] / / Screw 3.5mm 22mm Ft Hex Drv Nlckg Teddy Implanted:Qty: 1 on 09/28/2020 by Louie Albert MD at [facility] Left: Olecranon [employer] 8150-37-022 / / Screw 3.5mm 22mm T15 Slf-Tap Tip Lck Implanted:Qty: 1 on 09/28/2020 by Louie Albert MD at [facility] Left: Olecranon [employer] 1312-18-022 / / Screw 3.5mm 28mm Ft Nonlock Hex Drv Elb Implanted:Qty: 1 on 09/28/2020 by Louie Albert MD at [facility] Left: Olecranon [employer] [id number] / / Screw 3.5mm 55mm T15 Lck Lopro Slf-Tap Implanted:Qty: 1 on 09/28/2020 by Louie Albert MD at [facility] Left: Olecranon [employer] 1312-18-055 / / Screw 3.5mm 36mm T15 Slf-Tap Lck Tpr Implanted:Qty: 1 on 09/28/2020 by Louie Albert MD at [facility] Left: Olecranon [employer] [id number] / / Screw 3.5mm 38mm T15 Slf-Tap Lck Tpr Implanted:Qty: 1 on 09/28/2020 by Louie Albert MD at [facility] Left: Olecranon [employer] [id number] / / Plate 13 Hl Lopro Elb Olcrn 104x10.7x2.5 Implanted:Qty: 1 on 09/28/2020 by Louie Albert MD at [facility] [employer] 1312-18-601 / / Shell Actb 64mm Mlhl R3 Implanted:Qty: 1 on 07/15/2024 by Moses Lenz MD at [facility] named [facility] Left: Hip [employer] & [employer]hew Inc 09/09/2028 [id number] / / [id number] Screw 6.5mm 20mm Hip Actb Canc Sphrcl Implanted:Qty: 1 on 07/15/2024 by Moses Lenz MD at [facility] named [facility] Left: Hip [employer] 12/21/2033 [id number] / / [id number] Screw 6.5mm 25mm Hip Actb Canc Sphrcl Implanted:Qty: 1 on 07/15/2024 by Moses Lenz MD at [facility] named [facility] Left: Hip [employer] 02/08/2034 [id number] / / [id number] Acetabular Liner Implanted:Qty: 1 on 07/15/2024 by Moses Lenz MD at [facility] named [facility] Left: Hip 05/23/2029 [id number] / / [id number] Head Fem +16mm 12/14 28mm Hip Tpr Oxnm Implanted:Qty: 1 on 07/15/2024 by Moses Lenz MD at [facility] named [facility] Left: Hip [employer] 03/06/2025 [id number] / / [id number] Liner Biplr 44mm 28mm Tndm Hip Cocr Uhmw Implanted:Qty: 1 on 07/15/2024 by Moses Lenz MD at [facility] named [facility] Left: Hip [employer] 06/03/2026 [id number] / / [id number] Graft Bone Ac Cnxs Dbm 2.5ml Ptty Rtu - [id number] Implanted:Qty: 1 on 01/26/2025 by Serjio Miller MD at [facility] Left: [employer] 08/08/2025 02-3000-025 / [id number] / [id number] Screw 2.7mm 4.5mm 30mm T7 Slfret Scrdrvr Implanted:Qty: 1 on 01/26/2025 by Serjio Miller MD at [facility] Left: Elbow [employer] [id number] / / Screw 2.7mm 4.5mm 36mm T8 2mm Slf-Tap Implanted:Qty: 1 on 01/26/2025 by Serjio Miller MD at [facility] Left: Elbow [employer] [id number] / / Screw 2.7mm 4.5mm 42mm T7 Slfret Scrdrvr Implanted:Qty: 1 on 01/26/2025 by Serjio Miller MD at [facility] Left: Elbow [employer] [id number] / / 4.0mm Osteopenia Screw Fully Threaded 36mm Implanted:Qty: 1 on 01/26/2025 by Serjio Miller MD at [facility] Left: Elbow [employer] [id number] / / 4.0 Headless Screw Implanted:Qty: 1 on 01/26/2025 by Serjio Miller MD at [facility] Left: Elbow [employer] [id number] / / 2.7mm Recon Plate 10h 81mm Implanted:Qty: 1 on 01/26/2025 by Serjio Miller MD at [facility] Left: Elbow [employer] [id number] / / Explanted Type Area Bass String Winder Device Identifier Shelf Expiration Date Model / Serial / Lot 16mm Drill Explanted:Qty : 1 on 08/20/2017 at Formerly named [facility] N/A: Spine Cervical Depuy Spine 2868-20-016 / / Wire K 1.6mm 6in Hlf Bynt Pnt Ss Fx Explanted:Qty : 4 on 09/28/2020 at [facility] Left: Olecranon [employer] [id number] / / Screw 6.5mm 30mm Sphrcl Head Hip Actb Explanted:Qty : 1 on 07/15/2024 by Moses Lenz MD at Formerly named [facility] Left: Hip [employer] 02/19/2034 [id number] / / [id number] Wdge Tricort Frz Dry Aseptic 1.7-1.9cm Explanted:Qty : 1 on 07/15/2024 at Former[facility] named [facility] [id number] DISCONTINUED / / Wdge Tricort Frz Dry Aseptic 1.7-1.9cm Explanted:Qty : 1 on 07/15/2024 at Formerly named [facility] [id number] DISCONTINUED / / Procedures Procedure Name Priority Date/Time Associated Diagnosis Comments XR ELBOW LEFT 3VW OR MORE Routine 04/19/2025 11:35 AM CDT 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 Anatomical Region Laterality Modality Upper Extremity Radiographic Lana ging 04/19/2025 11:3 8 AM CDT Impressions 04/19/2025 11:39 AM CDT IMPRESSION: Unchanged osseous alignment. > Interpreting Provider: Franco Mas MD on 04/19/2025 11:39 AM Narrative 04/19/2025 11:39 AM CDT PROCEDURE: XR ELBOW LEFT 3VW OR MORE DATE/TIME OF EXAM: 04/19/2025 11:35 AM CLINICAL INFORMATION: None relevant/not provided if blank. 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 FINDINGS: Distal humeral fracture fixation with a posterior lateral plate and screws is redemonstrated. The hardware is intact and the osseous alignment is unchanged. The joint space is maintained. There are small osteophytes. There are a few small ossific fragments laterally. There is postsurgical change in the proximal ulna with several screw tracks. Procedure Note Franco Mas MD - 04/19/2025 PROCEDURE: XR ELBOW LEFT 3VW OR MORE DATE/TIME OF EXAM: 04/19/2025 11:35 AM CLINICAL INFORMATION: None relevant/not provided if blank. 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 FINDINGS: Distal humeral fracture fixation with a posterior lateral plate andscrews is redemonstrated. The hardware is intact and the osseous alignment is unchanged. The joint space is maintained. There are small osteophytes. There are a few small ossific fragments laterally. There is postsurgical change in the proximal ulna with several screw tracks. IMPRESSION: Unchanged osseous alignment. > Interpreting Provider: Franco Mas MD on 04/19/2025 11:39 AM Serjio Miller MD DIAGNOSTIC IMAGING ORDERABLES F inal Result from Last 3 Months Insurance [employer] [facility] [employer] Advance Directives * Full Code (Latest Code Status on File) Date Activated Date Inactivated Comments 07/15/2024 11:27 AM 07/17/2024 1:13 PM * Full Code Date Activated Date Inactivated Comments 04/18/2024 1:14 AM 04/20/2024 7:32 PM * Full Code Date Activated Date Inactivated Comments 05/02/2019 7:44 PM 05/11/2019 7:03 PM * Full Code Date Activated Date Inactivated Comments 08/20/2017 3:50 PM 08/23/2017 4:38 PM * Full Code Date Activated Date Inactivated Comments 02/19/2015 1:51 PM 02/20/2015 1:01 PM Care Teams Asset Protection Officer Relationship Specialty Start Date End Date Guido Pugh MD PCP - General Internal Medicine 08/11/17 Edi Funez, RN State Auditor 02/20/15 Deneen Espinosa, RN Registered Nurse 08/20/17 Mark Mcfarlane MD [address] [phone] Patient Financial Advocate Cardiovascular Disease 09/25/20
--- OUTSIDE RECORDS SUMMARY | 2025-04-28 16:57 | XMS_ITS | Encounter Summary ---
Author Organization [facility] Healthcare Address [address] [place] [address] Care Team Providers Care Builder Beam Name Role Phone Guido Pugh MD Primary Care Provider [phone] Mark Mcfarlane MD Unavailable [phone] Encounter Details Date Type Department Care Team (Late st Contact Info) Description 02/01/2025 Telephone [facility] Radiology [address] [place] [address] Valentin Valdes RN Social History Tobacco Use Types Packs/Day Years Used Date Smoking Tobacco: Never Smokeless Tobacco: Never Sex and Gender Information Value Date Recorded Sex Assigned at Not on file 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
--- OUTSIDE RECORDS SUMMARY | 2025-04-28 16:57 | XMS_ITS | Clinical Summary ---
Author Organization Formerly [facility] Address [address] [place] [address] Phone Care Team Providers Care Box Cutter Name Role Phone Guido Pugh MD Primary Care Provider [phone] Allergies Active Allergy Reactions Criticality Noted Date Comments Ketamine Anxiety,Delirium,Cam faisal ination,Rash,Unknown High 01/02/2017 Other reaction(s): Other (See Comments) Hallucinations.Verbalize s had a bad experience with Ketamine it and refuses to take it. Other reaction(s): Hallucinating Other reaction(s): Other (See Comments) Hallucinations.Verbalize s had a bad experience with Ketamine it and refuses to take it. Other reaction(s): Other (See Comments) Hallucinations.Verbalize s had a bad experience with Ketamine it and refuses to take it. Other reaction(s): Other (See Comments) Hallucinations.Verbalize s had a bad experience with Ketamine it and refuses to take it. Medications apixaban (ELIQUIS) 5 mg tablet Take 5 mg by mouth 2 times daily. 1 Active baclofen (LIORESAL) 10 mg tablet TAKE 1 TABLET (10 MG TOTAL) BY MOUTH 3 (THREE) TIMES DAILY FOR 7 DAYS. 4 Active dicyclomine (BENTYL) 10 mg capsule 10 mg. 1 Active eszopiclone (LUNESTA) 3 mg Tablet Take 3 mg by mouth. 1 Active furosemide (LASIX) 40 mg tablet Take 40 mg by mouth every other day. 2 Active methocarbamoL (ROBAXIN) 500 mg tablet Take 1,000 mg by mouth 3 times daily as needed. 4 Active metoprolol tartrate (LOPRESSOR) 100 mg tablet Take 100 mg by mouth 2 times daily. 3 Active montelukast (SINGULAIR) 10 mg tablet Take 10 mg by mouth daily. 3 Active oxyBUTYnin (DITROPAN XL) 15 mg Extended Release 24 hour tablet Take 15 mg by mouth daily. 4 Active oxyCODONE-aceta minophen (PERCOCET) 10-325 mg Tablet Take 1 Tablet by mouth every 6 hours as needed for Pain. 4 Active pravastatin (PRAVACHOL) 40 mg tablet Take 40 mg by mouth daily. 4 Active pregabalin (LYRICA) 300 mg Capsule Take 1 Capsule by mouth 2 times daily. 3 Active clopidogreL (PLAVIX) 75 mg Tablet Take 75 mg by mouth daily. 5 Active pantoprazole (PROTONIX) 40 mg Tablet, Delayed Release (E.C.) Take by mouth. 5 Active oxyCODONE (ROXICODONE) 5 mg tablet Take 5 mg by mouth every 6 hours as needed. 5 Active mirabegron (MYRBETRIQ) 25 mg Extended Release 24 hour tablet Take 25 mg by mouth daily. 5 Active ipratropium bromide (ATROVENT) 42 mcg (0.06 %) Bee, Non-Aerosol Administer 2 Sprays in each nostril. 5 Active ferrous sulfate 325 mg (65 mg iron) tablet Take 325 mg by mouth. 5 Active DULoxetine (CYMBALTA) 60 mg Capsule, Delayed Release(E.C.) Take by mouth. 4 Active aspirin (ECOTRIN EC) 81 mg Tablet, Delayed Release (E.C.) Take 81 mg by mouth daily. 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 Encounters Date Type Department Care Team Description 04/19/2025 1:45 PM CDT Office Visit [facility] [address] [place] [address] Laz Chan MD Cervical spondylosis with myelopathy (Primary Dx); Cervical cord myelomalacia (CMS/HCC); S/P spinal fusion; Cervical spine ankylosis; Dysphagia, unspecified type 04/19/2025 Telephone [facility] [address] [place] [address] Laz Chan MD Imaging Auth 04/18/2025 Orders Only [facility] [address] [place] [phone] Provider, Abstract 04/17/2025 Abstract [facility] [address] [place] [phone] Laz Chan MD 03/28/2025 External Device Data [facility] ABSTRACTION Provider, Abstract 03/27/2025 Abstract [facility] [address] [place] [address] Provider, Abstract 03/02/2025 External Device Data [facility] ABSTRACTION Provider, Abstract 03/02/2025 External Device Data [facility] ABSTRACTION Provider, Abstract 03/01/2025 External Device Data [facility] ABSTRACTION Provider, Abstract 02/28/2025 External Device Data [facility] ABSTRACTION Provider, Abstract from Last 3 Months Family History Relation Name Status Comments Father Mother Alive Social History Tobacco Use Types Packs/Day Years Used Date Smoking Tobacco: Never Smokeless Tobacco: Never Tobacco Cessation:Counseling Given: Not Answered Alcohol Use Standard Drinks/Week Comments Yes 0 (1 standard drink = 0.6 oz pur e alcohol) Sex and Gender Information Value Date Recorded Sex Assigned at Not on file 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 Gender Identity Not on file Sexual Orientation Not on file Last Filed Vital Signs Vital Sign Reading Time Taken Comments Blood Pressure 134/82 04/19/2025 1:55 PM CDT Pulse 64 04/19/2025 1:55 PM CDT Temperature 36.3 C (97.4 F) 04/19/2025 1:55 PM CDT Respiratory Rate 18 04/19/2025 1:55 PM CDT Oxygen Saturation 97% 03/30/2024 11:37 AM CDT Inhaled Oxygen Concentration - - Weight 113.4 kg (250 lb) 04/19/2025 1:55 PM CDT Height 177.8 cm (5' 10) 04/19/2025 1:55 PM CDT Body Mass Index 35.87 04/19/2025 1:55 PM CDT Plan of Treatment Health Maintenance Due Date Last Done Comments ZOSTER VACCINE (2 of 3) 02/19/2011 12/25/2010 PNEUMOCOCCAL VACCINE 50+ YEA RS (2 of 2 - PPSV23, PCV20, or PCV21) 07/26/2015 05/31/2015 DTAP/TDAP/TD VACCINES (2 - T d or Tdap) 07/12/2022 07/12/2012 RSV VACCINE (60+ or ) (1 - 1-dose 75+ series) 2023 Medicare [place] Prev entative Visit/Annual Wellness Visit 10/12/2024 INFLUENZA VACCINE (#1) 2025 1, 07/23/2020, 08/21/2017 COLORECTAL SCREENING Discontinued 01/02/2025, 01/26/20 18 Colorectal Cancer Screening Discontinued FIT-DNA Q 3 years Discontinued FIT/FOBT Q 1 year Discontinued Flex Sig/CT Colonography Q 5 years Discontinued Procedures Procedure Name Priority Date/Time Associated Diagnosis Comments MRI CERVICAL WO CONTRAST Routine 04/08/2025 10:55 AM CDT from Last 3 Months Results * MRI CERVICAL WO CONTRAST (04/08/2025 10:55 AM CDT) Anatomical Region Laterality Modality Spine Magnetic Resonan ce us Abstract Provider MR ORDERABLES Final Result from Last 3 Months Insurance [facility] Care Teams Box Cutter Relationship Specialty Start Date End Date Guido Pugh MD [address] [place] [address] PCP - General Internal Medicine 02/25/22
--- OUTSIDE RECORDS SUMMARY | 2025-04-28 16:57 | XMS_ITS | Encounter Summary ---
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 us Historical Provider Final Res ult documented in this encounter Visit Diagnoses Not on filedocumented in this encounter Additional Health Concerns Infection Onset Date Last Indicated Resolved Time MRSA Comment:h/o staph infecion 04/25/2020 04/24/2020 05/29/2021 5: 00 AM CDT documented as of this encounter Care Teams Dough Molder Hand Relationship Specialty Start Date End Date Guido Pugh MD [address] [place] [address] PCP - General 09/13/17 Mark Mcfarlane MD [address] [place] [address] Electrician Outside Cardiology 05/31/19 documented as of this encounter
--- OUTSIDE RECORDS SUMMARY | 2025-04-28 16:57 | XMS_ITS | Clinical Summary ---
Author Organization [facility] Address [address] [place] [address] Care Team Providers Care Angle Shearer Name Role Phone Guido Pugh MD Primary Care Provider [phone] Mark Mcfarlane MD Unavailable [phone] Allergies Active Allergy Reactions Criticality Noted Date Comments Amiodarone Other (See comments) High 01/02/2017 Other reaction: Pulmonary toxicity Ketamine Hcl Hallucinations,Vomiting Medium 06/03/[address] (PROTONIX) 40 mg EC tablet Take 1 tablet (40 mg total) by mouth daily Active furosemide (LASIX) 40 mg tablet Take 1 tablet (40 mg total) by mouth 2 (two) times a day 04/01/20 22 Active montelukast (SINGULAIR) 10 mg tablet Take 1 tablet (10 mg total) by mouth daily 12/26/19 24 Active pregabalin (LYRICA) 150 mg capsuleIndicati ons:Arthralgia, unspecified joint Take 2 capsules (300 mg total) by mouth 2 (two) times a day 120 capsule 1 01/25/[address] (Cymbalta) 60 mg capsule Take 1 capsule (60 mg total) by mouth daily 30 capsule 02/05/20 24 Active pravastatin (PRAVACHOL) 40 mg tablet TAKE 1 TABLET BY MOUTH EVERY DAY 90 tablet 2 11/15/19 25 Active metoprolol (LOPRESSOR) 100 mg tablet TAKE 1 TABLET BY MOUTH TWICE A DAY 180 tablet 2 11/15/19 25 Active aspirin 81 mg enteric coated tablet Take 1 tablet (81 mg total) by mouth daily Active finasteride (PROSCAR) 5 mg tablet Take 1 tablet (5 mg total) by mouth daily Active eszopiclone (LUNESTA) 3 mg tablet Take 1 tablet (3 mg total) by mouth nightly Active oxyCODONE-aceta minophen (PERCOCET) 5-325 mg per tabletIndicatio ns:Pain Take 1 tablet by mouth every 4 (four) hours as needed for pain Active clopidogreL (PLAVIX) 75 mg tablet TAKE 1 TABLET BY MOUTH EVERY DAY 60 tablet 04/03/20 25 Active clopidogreL (PLAVIX) 75 mg tablet Take 1 tablet (75 mg total) by mouth daily 60 tablet 03/09/20 25 025 Discontinued Active Problems Problem Noted Date Diagnosed Date Paroxysmal atrial fibrillation 03/09/2025 BPH with obstruction/lower urinary tract symptom s 02/06/2025 Urinary urgency 02/06/2025 Iron deficiency anemia, unspecified 01/17/2025 Unspecified thoracic, thorac olumbar and lumbosacral intervertebral disc disorder 01/17/2025 Vitamin D deficiency 01/17/2025 Anemia 01/17/2025 Anemia, unspecified 01/17/2025 Hypertension 01/17/2025 Instability of left hip joint 01/17/2025 Coronary atherosclerosis 01/17/2025 Chronic atrial fibrillation, unspecified 025 PAF (paroxysmal atrial fibrillation) 11/11/2024 Influenza A 11/11/2024 Acute respiratory failure with hypoxia Complication of internal left hip prosthesis 04/2024 Presence of artificial hip joint, bilateral 04/2024 Presence of other cardiac implants and grafts Bilateral primary osteoarthritis of hip 07/18/20 24 Recurrent dislocation, left hip 07/18/2024 Recurrent dislocation, left hip 07/18/2024 Presence of left artificial shoulder joint 07/18 Obesity, class 2 07/18/2024 Cardiomyopathy, unspecified 07/18/2024 Chronic obstructive pulmonary disease, unspecifi ed 07/18/2024 Major depressive disorder, recurrent, moderate 1 Atherosclerotic heart diseas e of [place] coronary artery without angina pectoris 07/18/2024 Obstructive sleep apnea (adult) (pediatric) 04/2024 Unspecified atrial fibrillation 07/18/2024 Cutaneous abscess of right lower limb 06/03/2024 Closed dislocation of left hip 04/18/2024 Left hip pain 04/18/2024 Hyperbilirubinemia 01/25/2024 Overview (01/25/2024): chronic History of total replacement of both hip joints 01/25/2024 Assessment & Plan (01/25/2024 3:44 PM CDT): Brigitte reports that he had BL SANJUANITA several yrs ago but recently hips aching. He has an established appt to follow up w ortho to review the status Closed fracture of left distal humerus Assessment & Plan (02/05/2024 11:14 AM CDT): Nonop management in brace. Had ortho fu 01/26 - advanced to WB, continue splint. Assessment & Plan (02/02/2024 12:57 PM CDT): Continue PT/OT. Has ortho fu next week. Patient, tx, & provider feels ready for d/c. Will dc with SS. Assessment & Plan (01/29/2024 1:06 PM CDT): Nonop management in brace. Had ortho fu 01/26 - advanced to WB, continue splint. Tx notified of orders. Assessment & Plan (01/25/2024 3:54 PM CDT): He is now in sling. He was non-op; cont rx rx oxycodone for pain. Closed fracture of eighth thoracic vertebra 01/10 Assessment & Plan (02/05/2024 11:13 AM CDT): Continue fu with NSY outpt & TLSO. Pain control. PT/OT. Assessment & Plan (02/02/2024 12:59 PM CDT): Continue fu with NSY outpt & TLSO. Pain control. PT/OT. Assessment & Plan (01/29/2024 1:00 PM CDT): Continue fu with MARCELLO MADDOX. Pain control. Assessment & Plan (01/25/2024 3:45 PM CDT): This was described by radiology as nondisplaced and eval at [facility]. It was non-op Arthralgia 01/25/2024 History of congestive heart failure 09/14/2023 CHF (congestive heart failure) 08/20/2023 Assessment & Plan (02/05/2024 11:14 AM CDT): Compensated.Continue Metoprolol & Lasix. Dyspnea on exertion 12/03/2022 Assessment & Plan (12/03/2022 11:41 AM DEFENSE ANALYST): No clear etiology for shortness of breath. No history of any clinical bleeding. Probably secondary to deconditioning. Had nonocclusive coronary disease by catheterization many years ago. I recommended Lexiscan Myoview. Recent echo showed ejection fraction of 50-55% without any major valvular disease. Recent hemoglobin is 13.4. Lungs clear to auscultation without any wheezing or crepitations. Based on the stress test I will make further recommendations. Current use of dietary aide cook anticoagulation 023 Assessment & Plan (12/03/2022 11:42 AM DEFENSE ANALYST): Tolerating the anticoagulation. No history of any clinical bleeding Moderate mitral regurgitation 08/20/2022 Nonrheumatic aortic (valve) insufficiency 2021 Mixed hyperlipidemia 12/03/2021 Assessment & Plan (01/25/2024 3:41 PM CDT): Chronic, stable; cont rx pravastatin Assessment & Plan (12/03/2022 11:41 AM DEFENSE ANALYST): Recent lipid panel looks good. LDL is 63. Continue pravastatin and I will repeat his the Chem 12, CBC and lipids in 6 months. Weight gain 12/03/2021 Chronic bronchitis 11/18/2021 Permanent atrial fibrillation 12/07/2020 Assessment & Plan (01/25/2024 3:42 PM CDT): Chronic, stable; cont rx apixaban Assessment & Plan (12/03/2022 11:42 AM DEFENSE ANALYST): Heart rate is controlled. No clinical tachy-josep syndrome. Continue anticoagulation. Recurrent falls 12/07/2020 Generalized osteoarthritis 10/30/2020 Overview (04/02/2022): Sep 18, 2020 Entered By: MEILSSA SWARTZ Comment: lt TSR, LINDA TKR, C, T and Lumbar fusions w/hardware, Family history of peripheral neuropathy 10/30/19 21 Decreased hearing 10/30/2020 Overview (04/02/2022): Sep 18, 2020 Entered By: MELISSA SWARTZ Comment: Pt has significant decreased sensation X 4 extremities. Heterotopic ossification 09/17/2020 COPD (chronic obstructive pulmonary disease) 11/2019 Assessment & Plan (01/25/2024 3:46 PM CDT): Chronic, stable but also notes chronic cough (sometimes productive, but no blood). Cont rx albuterol inhaler. Cont rx singulair. Major depressive disorder, recurrent episode, mo derate 10/13/2019 Assessment & Plan (01/25/2024 3:43 PM CDT): Chronic, stable; Disorder of adrenal gland 10/13/2019 Other specified polyneuropathies 10/13/2019 BMI 31.0-31.9,adult 06/15/2019 Overview (04/02/2022): Status post lap band surgery. His lab and was removed which was complicated by abdominal abscess and resolved. Spinal stenosis of lumbar region 05/11/2019 Assessment & Plan (01/25/2024 3:47 PM CDT): Chronic. Cont rx baclofen and lyrica. Kathie confirms that the current dose of lyrica 300mg bid is his home regimen and chronically tolerated. Spinal stenosis, lumbar collins on without neurogenic claudication 05/11/2019 Left atrial dilation 07/05/2018 Aortic valve sclerosis 07/05/2018 Overview (04/02/2022): Mild. Aortic insufficiency stable by repeat echo done in April 2017 Hip joint instability, left 02/23/2018 Inguinal hernia 09/23/2017 Obstructive sleep apnea syndrome 08/20/2017 Insomnia 06/30/2017 Cervical cord myelomalacia 04/11/2017 Hemangioma of spine 02/17/2017 S/P bilateral cataract extraction 01/09/2017 Cardiomyopathy 04/11/2016 Overview (06/02/2019): Part to be secondary to A. fib with RVR. Last echo showed normal LV function Essential (primary) hypertension 04/11/2016 Assessment & Plan (01/25/2024 3:41 PM CDT): Chronic, stable; cont rx metoprolol Assessment & Plan (12/03/2022 11:42 AM DEFENSE ANALYST): Blood pressure is well controlled. Continue current medications including Lasix and the metoprolol. Continue low-salt diet. Non-occlusive coronary artery disease 04/11/2016 Assessment & Plan (12/03/2022 11:41 AM DEFENSE ANALYST): No clinical angina but has shortness of breath. As mentioned proceed with the stress test. Based on the stress test I will make further recommendations Nuclear cataract 03/21/2016 Numbness of left hand 11/05/2015 S/P reverse total shoulder arthroplasty, left Erectile dysfunction 07/26/2014 Resolved Problems Problem Noted Date Diagnosed Date Resolved Date Gait instability 01/25/2024 02/05/2024 Assessment & Plan (01/25/2024 3:49 PM CDT): Kathie reports that his home fall was because he wasn't using his walker. I endorse admission to assisted care. The patient is at risk of injury, illness and a requirement for a higher level of care without this service. The patient needs assistance from the nurses and care team for all activities of daily living including dressing, hygeine of person and toilet, safe transfer and mobility, dietary needs, medication administration, and grooming. The patient will need physical and occupational therapy to progress to a safer level of care. Nonrheumatic aortic insuffic iency with aortic stenosis 06/06/2022 06/06/2022 History of atrioventricular trevon ablation 10/30/2020 04/02/2022 Closed fracture of left olecranon process 09/27/2020 01/29/2024 Closed fracture of upper end of left ulna 09/17/2020 01/29/2024 Paroxysmal atrial fibrillation (CMS/HCC) 05/11/2020 12/03/2021 Anemia determined by examination 04/25/2020 02/05/2024 Elevated bilirubin 01/06/2018 4 Assessment & Plan (01/25/2024 3:42 PM CDT): Kathie () reports that he has had this for years. Follow up lab ordered to eval LFT's Loss of taste 12/29/2017 01/29/2024 Incontinence of feces 11/12/20172023 Abscess of chest wall 05/01/20172023 Other specified abnormal fin dings of blood chemistry 04/24/2017 01/29/2024 Overview (06/02/2019): Apparently he had increased LFTs and his Lipitor was discontinued by Dr. Patino. Arthrodesis status 02/17/2017 4 Hypokalemia 11/05/2016 01/29/2024 Dyslipidemia 04/11/2016 12/03/2021 History of atrial fibrillation 04/11/2016 12/03/2021 Overview (06/02/2019): Patient had a loop recorder. In August he had a brief episode of A. fib. Patient currently taking the sotalol and atelectasis. Apparently the transmitter is not working. We discussed about removing the Linq device as he had it for 3 years. He wishes Encounters Date Type Department Care Team Description 04/24/2025 3:30 PM CDT Office Visit [facility] [address] [facility] [address] [place] [address] Mark Mcfarlane MD Permanent atrial fibrillation (HCC) (Primary Dx); Non-occlusive coronary artery disease; Essential (primary) hypertension; Nonrheumatic aortic (valve) insufficiency; Cardiomyopathy, unspecified type (HCC); Mixed hyperlipidemia; Primary cardiomyopathy (HCC) 03/31/2025 Telephone [facility] [address] [facility] [address] [place] [address] Mark Mcfarlane MD Scheduling Appointments 03/16/2025 4:00 PM CDT Telemedicine [facility] Radiology [address] [place] [address] Edgar Ayala MD BPH with urinary obstruction (Primary Dx) 03/09/2025 11:20 AM CDT - 03/09/2025 1:10 PM CDT Surgery [facility] [address] [phone] Javier Ramachandran III, MD PERC SURYA CLOSE W/IMPLANT [id number] 03/09/2025 11:03 AM CDT Anesthesia Event [address] [phone] Yoel Levine MD Bowers, Bart Steven, CRNA 03/09/2025 9:41 AM CDT - 03/09/2025 5:39 PM CDT Hospital Encounter [facility] [address] [place] [phone] Javier Ramachandran III, MD PAF (paroxysmal atrial fibrillation) (HCC) Discharge Disposition: Discharge to home or self care 03/02/2025 Telephone [facility] [address] [facility] [address] [place] [phone] Whitley Smith RN 02/13/2025 Telephone [facility] [address] [place] [address] Ana Chatman RN 02/07/2025 Telephone [facility] [address] [place] [address] Ana Chatman RN 02/06/2025 6:00 AM CDT Office Visit [facility] [place] [address] [facility] 1st [place] [phone] Urinary urgency; BPH with obstruction/lower urinary tract symptoms; H/O: HTN (hypertension) 02/06/2025 5:57 AM CDT - 02/06/2025 11:59 PM CDT Hospital Encounter [facility] [address] [place] [address] Edgar Ayala MD BPH with obstruction/lower urinary tract symptoms; Urinary urgency Discharge Disposition: Discharge to home or self care 02/01/2025 Telephone [facility] [address] [place] [address] Valentin Valdes RN from Last 3 Months Surgical History Surgery Date Site/Laterality Comments BACK SURGERY CARDIOVERSION ELBOW SURGERY HERNIA REPAIR ABLATION OF AFIB FLUTTER EMBOLIZATION ORGAN ISCHEMIA OR INFARCTION 02/06/2025 N/A IMPLANTABLE CARDIAC DEVICE 03/09/2025 N/A Procedure: PERC SURYA CLOSE W/IMPLANT [id number]; Surgeon: Javier Ramachandran III, MD; Location: [facility] CARDIAC OBEDIENCE TRAINER; Service: Cardiovascular; Laterality: N/A; Medical devices from this surgery are in the Medical Devices section. Medical History Medical History Date Comments A-fib (HCC) Mild aortic insufficiency Cardiomyopathy (HCC) Dyslipidemia HTN (hypertension) Hyperbilirubinemia 01/25/2024 chronic Social History Tobacco Use Types Packs/Day Years Used Date Smoking Tobacco: Never Smokeless Tobacco: Never Personal Safety Answer Date Recorded Have you ever been in or are you currently in a harmful physical or emotional relationship or is someone making you feel afraid or unsafe? Denies 03/09/2025 Sex and Gender Information Value Date Recorded Sex Assigned at Not on file Legal Sex Male 3:19 PM DEFENSE ANALYST Gender Identity Not on file Sexual Orientation Not on file Obstetrics History Last Filed Vital Signs Vital Sign Reading Time Taken Comments Blood Pressure 116/70 04/24/2025 3:32 PM CDT Pulse 75 04/24/2025 3:32 PM CDT Temperature 36.6 C (97.9 F) 03/09/2025 10:20 AM CDT Respiratory Rate 17 03/09/2025 3:04 PM CDT Oxygen Saturation 98% 03/09/2025 3:04 PM CDT Inhaled Oxygen Concentration - - Weight 125.2 kg (276 lb) 03/09/2025 10:20 AM CDT Height 177.8 cm (5' 10) 04/24/2025 3:32 PM CDT Body Mass Index 39.6 03/09/2025 10:20 AM CDT Plan of Treatment Health Maintenance Due Date Last Done Comments Depression Screening 1950 Hepatitis C Screening 1950 Hepatitis B Screening 1966 Zoster Vaccine (2 of 3) 02/19/2011 12/25/2010 Well Visit 65+ 2013 Pneumococcal vaccine 65+ (2 of 2 - PPSV23) 07/26/2015 05/31/2015 DTaP/Tdap/Td Vaccine (2 - Td or Tdap) 07/12/2022 07/12/2012 Influenza Vaccine (#1) 2025 , 08/29/2021, 07/23/2020, Additional history exists Fall Risk Assessment 03/09/2026 03/09/2025 Medical Devices Implanted Type Area Assembler For Puller Over Hand Device Identifier Shelf Expiration Date Model / Serial / Lot [employer] Ignacia Device Closure 35mm Lt Watchman Flx Pro Cardiac Strl La [id number] - [id number] - [id number] Implanted:Qty: 1 on 03/09/2025 by Javier Ramachandran III, MD at [facility] Left Atrial Appendage Occluder Left: Atrial Appendage [employer] Ignacia 09/26/2027 [id number] / [id number] / [id number] [employer] System Closure Repair Femoral Artery Suture Mediated Perclose Prostyle 82318-23 - [id number] - [id number] Implanted:Qty: 1 on 03/09/2025 by Javier Ramachandran III, MD at [facility] Vascular Closure Device Right: Femoral Vein [employer] 01/09/2027 87028-86 / [id number] / [id number] [employer] System Closure Repair Femoral Artery Suture Mediated Perclose Prostyle 84947-89 - [id number] - [id number] Implanted:Qty: 1 on 03/09/2025 by Javier Ramachandran III, MD at [facility] Vascular Closure Device Right: Femoral Vein [employer] 01/09/2027 [id number] / [id number] / [id number] [facility] PneumRx Embosphere Prefill Saline Syringe Compressible Nonaggregate S420gh - [id number] Implanted:Qty: 1 on 02/06/2025 at [facility] [employer] 08/13/2027 [id number] / / [id number] [employer] Ignacia Coil Embo Detach Soft Embold [id number] Sterile Latex-Free [id number] - [id number] Implanted:Qty: 1 on 02/06/2025 at [facility] [employer] Ignacia 12/21/2026 [id number] / / [id number] [employer] Ignacia Coil Embo Detach Soft Embold [id number] Sterile Latex-Free [id number] - [id number] Implanted:Qty: 1 on 02/06/2025 at [facility] [employer] Ignacia 11/14/2027 [id number] / / [id number] [employer] Angio-Seal Vip 6fr Closere Device [id number] - [id number] Implanted:Qty: 1 on 02/06/2025 at [facility] [employer] 08/29/2025 [id number] / / [id number] Procedures Procedure Name Priority Date/Time Associated Diagnosis Comments FLY GUIDANCE DURING CARDIAC STRUCTURAL INTVN [id number] Routine 03/09/2025 3:53 PM CDT PERC SURYA CLOSURE W/IMPLANT (WATCHMAN) [id number] Routine 03/09/2025 12:28 PM CDT PAF (paroxysmal atrial fibrillation) (HCC) POCT ACTIVATED CLOTTING TIME, HIGH RANGE Routine 03/09/2025 12:21 PM CDT MI AN PROCEDURE PLACEHOLDER Routine 03/09/2025 12:08 PM CDT MI AN ELECTIVE ENDOTRACHEAL AIRWAY Routine 03/09/2025 12:08 PM CDT POCT ACTIVATED CLOTTING TIME, HIGH RANGE Routine 03/09/2025 12:08 PM CDT ECG 12-LEAD STAT 03/09/2025 10:20 AM CDT B CHECK SAMPLE STAT 03/09/2025 10:15 AM CDT EGFR STAT 03/09/2025 10:04 AM CDT TYPE AND SCREEN Routine 03/09/2025 10:04 AM CDT BASIC METABOLIC PANEL STAT 03/09/2025 10:04 AM CDT EMBOLIZATION ORGAN ISCHEMIA OR INFARCTION Schedule Routine, Read Routine (OP Routine) 02/06/2025 10:32 AM CDT BPH with obstruction/lower urinary tract symptoms Urinary urgency DIFFERENTIAL AUTO Routine 02/06/2025 6:0 0 AM CDT Urinary urgency BPH with obstruction/lower urinary tract symptoms CBC WITH AUTO DIFFERENTIAL Routine 02/06/2025 6:00 AM CDT Urinary urgency BPH with obstruction/lower urinary tract symptoms PROTIME-INR Routine 02/06/2025 6:00 AM CDT Urinary urgency BPH with obstruction/lower urinary tract symptoms H/O: HTN (hypertension) from Last 3 Months Results * FLY Guidance During Cardiac Structural Intvn [id number] (03/09/2025 3:53 PM CDT) Anatomical Region Laterality Modality Echocardiography 03/09/2025 11:1 5 AM CDT Narrative 03/09/2025 5:20 PM CDT [facility] [address] [place] [address] TRANSESOPHAGEAL ECHOCARDIOGRAM Patient Name: BRIGITTE OLIVEIRA : 1950 (74y 7m) Gender: M Study Date: 03/09/2025 11:15:43 AM Ht(Inch): 70 Wt(Lb): 275.99 BSA: 2.49 Electronic Device Repairer: DOLORES Location: [id number] Order Provider: JAVIER RAMACHANDRAN BMI: 39.6 BP: 129/87 Ref Provider: JAVIER RAMACHANDRAN PROCEDURES: Transesophageal Echo Report: Transesophageal echocardiogram including 2D imaging, spectral doppler and color doppler was performed in the cardiac catheterization laboratory to support a structural procedure. The procedure was monitored with automatic blood pressure monitoring, ECG tracings, and pulse oximetry. Sedation was achieved by anesthesia using Propofol IV. The transesophageal probe was placed in the esophagus posterior to the heart without any complications. The patient tolerated the procedure well. INDICATIONS: Atrial fibrillation. MEASUREMENTS: 2D/MM Value Range Estimated EF 40-45 % 2D/MM Value Range FINDINGS: BP: Blood pressure: 129/87 mmHg. Left Ventricle: Mild-moderate left ventricular systolic dysfunction. There is global hypokinesis. Ejection Fraction is estimated to be 40-45 %. Normal left ventricular cavity size. Right Ventricle: Normal right ventricular size. Low normal right ventricular systolic function. Left Atrium: There is moderate-severe enlargement of the left atrium. LA Appendage: No left atrial appendage thrombus at the start of the case. During the case a left atrial appendage occlusion device was deployed in the left atrial appendage. It appears well-seated. There is no color Doppler flow around the device. Right Atrium: There is mild to moderate enlargement of the right atrium. Atrial Septum: Normal atrial septum at the start of the case. During the case atrial septostomy was performed resulting in an iatrogenic ASD at the end of the case. Predominant flow is [id number]. Mitral Valve: Normal appearance of the mitral valve. Trace mitral valve regurgitation. There is no evidence for significant mitral stenosis. Aortic Valve: Trileaflet aortic valve. There is trace aortic valve regurgitation. No aortic stenosis. Tricuspid Valve: Normal appearance and function with trace (physiologic) regurgitation of the tricuspid valve. TR envelope inadequate to estimate RVSP. Pulmonic Valve: Normal appearing pulmonic valve. No pulmonic stenosis. There is mild pulmonic regurgitation. Pericardium: No pericardial effusion. Aorta: Normal aortic root size. Normal size descending thoracic aorta. Ascending aorta is normal in size. Pulmonary Artery: Normal pulmonary artery size. CONCLUSIONS: 1. Mild-moderate left ventricular systolic dysfunction. There is global hypokinesis. Ejection Fraction is estimated to be 40-45 %. Normal left ventricular cavity size. 2. Normal right ventricular size. Low normal right ventricular systolic function. 3. There is moderate-severe enlargement of the left atrium. 4. There is mild to moderate enlargement of the right atrium. 5. Normal atrial septum at the start of the case. During the case atrial septostomy was performed resulting in an iatrogenic ASD at the end of the case. Predominant flow is [id number]-[id number]. 6. No left atrial appendage thrombus at the start of the case. During the case a left atrial appendage occlusion device was deployed in the left atrial appendage. It appears well-seated. There is no color Doppler flow around the device. Electronically Signed By: Abelardo mckeon 03/09/2025 5:19:54 PM CDT Procedure Note Abelardo Miller MD - 03/09/2025 [id number] [place] [address] TRANSESOPHAGEAL ECHOCARDIOGRAM Patient Name: BRIGITTE OLIVEIRA : 1950 (74y 7m) Gender: M Study Date: 03/09/2025 11:15:43 AM Ht(Inch): 70 Wt(Lb): 275.99 BSA: 2.49 Electronic Device Repairer: DOLORES Location: 6143 Order Provider: JAVIER RAMACHANDRAN BMI: 39.6 BP: 129/87 Ref Provider: FERNJAVIER KAHN PROCEDURES: Transesophageal Echo Report: Transesophageal echocardiogram including 2Dimaging, spectral doppler and color doppler was performed in the cardiaccatheterization laboratory to support a structural procedure. The procedure was monitoredwith automatic blood pressure monitoring, ECG tracings, and pulse oximetry. Sedation wasachieved by anesthesia using Propofol IV. The transesophageal probe was placed in theesophagus posterior to the heart without any complications. The patient toleratedthe procedure well. INDICATIONS: Atrial fibrillation. MEASUREMENTS: 2D/MM Value Range Estimated EF 40-45 % 2D/MM Value Range FINDINGS: BP: Blood pressure: 129/87 mmHg. Left Ventricle: Mild-moderate left ventricular systolic dysfunction. Thereis global hypokinesis. Ejection Fraction is estimated to be 40-45 %. Normal leftventricular cavity size. Right Ventricle: Normal right ventricular size. Low normal rightventricular systolic function. Left Atrium: There is moderate-severe enlargement of the left atrium. LA Appendage: No left atrial appendage thrombus at the start of the case.During the case a left atrial appendage occlusion device was deployed in the left atrialappendage. It appears well-seated. There is no color Doppler flow around the device. Right Atrium: There is mild to moderate enlargement of the right atrium. Atrial Septum: Normal atrial septum at the start of the case. During thecase atrial septostomy was performed resulting in an iatrogenic ASD at the end of thecase. Predominant flow is [id number]. Mitral Valve: Normal appearance of the mitral valve. Trace mitral valveregurgitation. There is no evidence for significant mitral stenosis. Aortic Valve: Trileaflet aortic valve. There is trace aortic valveregurgitation. No aortic stenosis. Tricuspid Valve: Normal appearance and function with trace (physiologic)regurgitation of the tricuspid valve. TR envelope inadequate to estimate RVSP. Pulmonic Valve: Normal appearing pulmonic valve. No pulmonic stenosis.There is mild pulmonic regurgitation. Pericardium: No pericardial effusion. Aorta: Normal aortic root size. Normal size descending thoracic aorta.Ascending aorta is normal in size. Pulmonary Artery: Normal pulmonary artery size. CONCLUSIONS: 1. Mild-moderate left ventricular systolic dysfunction. There is globalhypokinesis. Ejection Fraction is estimated to be 40-45 %. Normal left ventricularcavity size. 2. Normal right ventricular size. Low normal right ventricular systolicfunction. 3. There is moderate-severe enlargement of the left atrium. 4. There is mild to moderate enlargement of the right atrium. 5. Normal atrial septum at the start of the case. During the case atrialseptostomy was performed resulting in an iatrogenic ASD at the end of the case.Predominant flow is [id number]. 6. No left atrial appendage thrombus at the start of the case. During thecase a left atrial appendage occlusion device was deployed in the left atrialappendage. It appears well-seated. There is no color Doppler flow around the device. Electronically Signed By: Abelardo Miller MD mobap 03/09/2025 5:19:54 PM CDT Javier Ramachandran III, MD CV ECHO PROCEDURES Final Result * PERC SURYA CLOSURE W/IMPLANT (WATCHMAN) [id number] (03/09/2025 12:28 PM CDT) Anatomical Region Laterality Modality X-Ray Angiograph y Javier Ramachandran III, MD CV ELECTROPHYSIOLOG Y PROCS Final Result * (ABNORMAL) POC Activated Clotting Time, High Range (03/09/2025 12:21 PM CDT) ACT 371(H) 87 - 138 sec POC Performer [id number] [facility] Blood 03/09/2025 12:2 1 PM CDT 03/09/2025 12:21 PM CDT Javier Ramachandran III, MD LAB BLOOD ORDERABLE S Final Result [facility] [address] Department [place] [address] * MI AN ELECTIVE ENDOTRACHEAL AIRWAY, MI AN PROCEDURE PLACEHOLDER (03/09/2025 12:08 PM CDT) Narrative Hermilo Gtz CRNA - 03/09/2025 12:08 PM CDT Hermilo Gtz CRNA 03/09/2025 12:10 PM Airway Patient location: OR Urgency: elective Date/time: 03/09/2025 11:16 PM Indications for airway management: anesthesia Difficult airway: no Staff: Supervising provider: Yoel Levine MD Placed by: CAN TESTER: Hermilo Gtz CRNA Emergent airway documentation: Risks and benefits discussed: yes Consent obtained: yes Consent given by: patient Airway prep: Preoxygenated: yes Patient position: sniffing Mask difficulty assessment: 1 - vent by mask Sedation level during airway: GA Final airway details: Final airway type: endotracheal airway Tube type: ETT ETT size: 8.0 mm Cuffed: yes Technique used for successful ETT placement: video laryngoscopy Devices/Methods used in placement: stylet Insertion site: oral Video blade type: Salomon Blade size: 4 Cormack-Lehane (video): grade I - full view of glottis Cuff volume: 15 mL Cuff inflated with: air (Needed extra air in ETT cuff to seal. Confirmed trachea with Salomon.) ETT to lips: 22 cm Placement verified by: auscultation and CO2 detection Airway secured with: silk tape Number of attempts: 1 Yoel Levine MD ANESTHESIA ORDERABLES Final Result * (ABNORMAL) POC Activated Clotting Time, High Range (03/09/2025 12:08 PM CDT) ACT 332(H) 87 - 138 sec POC Performer [id number] [facility] Blood 03/09/2025 12:0 8 PM CDT 03/09/2025 12:08 PM CDT Javier Ramachandran III, MD LAB BLOOD ORDERABLE S Final Result Performing Organization Address [facility] de Phone Number [facility] [address] [facility] [place] [address] * ECG 12 lead (03/09/2025 10:20 AM CDT) 03/09/2025 10:2 0 AM CDT Narrative [facility] - 03/09/2025 10:32 AM CDT Vent Rate: 56 bpm RR Interval: 1066 msec MI Interval: 0 msec QRS Duration: 113 msec QT Interval: 402 msec QTC Interval: 393 msec P-R-T [place]: 0 - -18 - 9 degrees IMPRESSION: ATRIAL FIBRILLATION WITH SLOW VENTRICULAR RESPONSE MODERATE INTRAVENTRICULAR CONDUCTION DELAY [110+ ms QRS DURATION] ABNORMAL RHYTHM ECG Electronically Signed By: Fredy Paulson MD PhD Javier Ramachandran III, MD ECG ORDERABLES Fin al Result Performing Organization Address [facility] Phone Number [facility] * Check Sample (03/09/2025 10:15 AM CDT) ABO Rh A Positive MBC HCLL OTHER 03/09/2025 10:1 5 AM CDT 03/09/2025 10:44 AM CDT Javier Ramachandran III, MD LAB BLOOD ORDERABLE S Final Result Performing Organization Address [facility] de Phone Number [facility] [address] [place] [address] MBC * eGFR (03/09/2025 10:04 AM CDT) eGFR 83 >=60 mL/min/1. 73 m2 Comment: Interpretive Data Reference Interval Normal >/= 90 mL/min/1.73m2 Mildly decreased* 60 - 89 mL/min/1.73m2 Mildly to moderately decreased 45 - 59 mL/min/1.73m2 Moderately to severely decreased 30 - 44 mL/min/1.73m2 Severely decreased 15 - 29 mL/min/1.73m2 Kidney Failure < 15 mL/min/1.73m2 *Relative to young adult level Estimated glomerular filtration rate is determined by the 2020 CKD-EPI equation recommended by the National Kidney Foundation (A Unifying Approach to GFR Estimation: Recommendations of the NKF-ASK Task Force on Reassessing the Inclusion of Race in Diagnosing Kidney Disease, JASN 202). The CKD-EPI equation should not be used for patients with unstable renal function and has not been validated in children and those over 70. Current interpretive data was last reviewed 2021. Blood 03/09/2025 10:0 4 AM CDT 03/09/2025 10:14 AM CDT Javier Ramachandran III, MD LAB BLOOD ORDERABLE S Final Result Performing Organization Address [facility] Co de Phone Number [facility] [address] [place] [address] * Type and screen (03/09/2025 10:04 AM CDT) ABO Rh A Positive [place], indirect Negative [facility] Blood 03/09/2025 10:0 4 AM CDT 03/09/2025 10:31 AM CDT Narrative [facility] - 03/09/2025 11:14 AM CDT Has the patient had Daratumumab or Isatuximab in the past 6 months?->Unknown Javier Ramachandran III, MD LAB BLOOD BANK TEST ORDERABLES Final Result [facility] [address] [place] [address] * Basic metabolic panel (03/09/2025 10:04 AM CDT) Sodium 143 135 - 145 mmol/L Potassium, pl 4.3 3.3 - 4.9 mmol/L [facility] Chloride 105 97 - 110 mmol/L [facility] CO2 29 22 - 32 mmol/L [facility] Anion gap 9 2 - 15 mmol/L [facility] BUN 19 6 - 25 mg/dL [facility] Creatinine 0.95 0.80 - 1.30 mg/dL [facility] Glucose 100 70 - 199 mg/dL [facility] Comment: Interpretive Data Fasting glucose >/= 126 mg/dl is diagnostic for diabetes. Fasting is defined as no caloric intake for at least 8 hours. Fasting glucose between 100 mg/dl to 125 mg/dl is diagnostic of prediabetes. In a patient with classic symptoms of hyperglycemia or hyperglycemic crisis, a random glucose >/= 200 mg/dl is diagnostic for diabetes. In the absence of unequivocal hyperglycemia, results should be confirmed by repeat testing. The classification and Diagnosis of Diabetes Diabetes Care 2021; 46: S19-S40. Current interpretive data was last revised 2022. Calcium 9.6 8.5 - 10.3 mg/dL [facility] Blood 03/09/2025 10:0 4 AM CDT 03/09/2025 10:14 AM CDT us Javier Ramachandran III, MD LAB BLOOD ORDERABLE S Final Result [facility] [address] [place] [address] * IR Embolization Tumor Organ Ischemia or Infarction (02/06/2025 10:32 AM CDT) Anatomical Region Laterality Modality Body N/A X-Ray Angiograph y 02/06/2025 10:4 6 AM CDT Impressions 02/06/2025 4:00 PM CDT Successful bilateral prostate artery embolization to end-point of stasis using a combination of particles, and coils. PLAN: 2 hours flat then discharge home. Discharge medications will include Ibuprofen 600 mg po qid PRN for 5 days, Pyridium 200 mg TID x 3 days, ciprofloxacin 500 mg BID x 7 days, Dulcolax 20 mg daily x 7 days, Oxybutynin 5 mg daily x 5 days. IR will follow the patient clinically for the improvement of lower urinary tract symptoms in 4 weeks. Dictated by: Cuca Cruz M.D. The radiology attending physician has personally reviewed this study, and had reviewed and/or edited this written report and agrees with it. Electronically signed by: Edgar Ayala M.D. Narrative 02/06/2025 4:00 PM CDT EXAMINATION: DIAGNOSTIC PELVIC ANGIOGRAPHY WITH PROSTATE ARTERY EMBOLIZATION HISTORY/INDICATION: 74-year-old man with BPH causing lower urinary tract symptoms presents for prostate artery embolization. His IPSS is 21. His prostate volume is 66 cc ATTENDING PRESENCE: Edgar Ayala M.D., the attending radiologist was present from the beginning to the end of the procedure. SEDATION: Procedural sedation was administered under the attending physician's direction and continuous monitoring by a trained nurse specialist who was independent from those actually performing the procedure. Total monitored sedation time was 90 minutes. TECHNIQUE: The risks, benefits and alternatives were discussed and informed consent was obtained. Prior to beginning the procedure, [place] Protocol was performed to confirm the patient's identity and the planned procedure. The fluoroscopy time has been recorded in the electronic medical record. Maximum sterile barriers including cap, mask, hand hygiene, sterile gloves, sterile gown, large sterile drape and 2% chlorhexidine for cutaneous antisepsis were used. Marcia-procedural antibiotic prophylaxis was administered at the beginning of the case consisting of Cipro 400 mg IV. After sterile prep, the skin over the right common femoral artery was infiltrated with 1% Lidocaine. The artery was punctured under real time ultrasound guidance. An image of the patent vessel was recorded. A 6 Fr [place] sheath was placed and connected to a heparinized saline drip. The side arm of the vascular sheath was used to perform a limited angiogram to confirm satisfactory position of arterial puncture site. Using fluoroscopic guidance, the following arteries were catheterized in sequences: Left internal iliac artery Left internal iliac artery anterior division Left prostatic artery (3rd order) Right internal iliac artery Right internal iliac artery anterior division Right prostatic artery (3rd order) The equipment used for catheterization was 5 [place] Cobra 2 and Sos catheters and a 0.035 Bentson and Glidewire guidewires. The equipment used for selective catheterization was Progreat catheter and a combination of Synchro and fathom wire. The following selective diagnostic angiograms were performed: Left internal iliac artery Left internal iliac artery anterior division Left prostatic artery (3rd order) Right internal iliac artery Right internal iliac artery anterior division Right prostatic artery (3rd order) (Rachel CT was also performed) The microcatheter tip was initially positioned in the proximal left prostatic artery and the position confirmed with injection of radiographic contrast media. Nitroglycerin 150 mcg intra arterial was injected through the microcatheter to promote vasodilation. Proximal embolization was then performed of the left prostatic artery was performed with 3 mL 300-500 um Embospheres, using appropriate precautions to the angiographic end point of near stasis. The PErFecTED technique was utilized for embolization of the left prostatic artery . Coil embolization was then performed using a 2 mm x 4 cm Embold coil. Post-embolization angiography was performed. Next, the microcatheter tip was positioned in the proximal right prostatic artery the position confirmed with injection of radiographic contrast media. Nitroglycerin 150 mcg intra arterial was injected through the microcatheter to promote vasodilation. Proximal embolization was then performed the target vascular territory using 3 mL 300-500 um Embospheres to the angiographic end point of near stasis. The PErFecTED technique was utilized for embolization of the right prostatic artery. Coil embolization was then performed using a 2 mm x 4 cm Embold coil. Post-embolization angiography was performed. Total embolization volume (particles): 6 ml Angioseal device was deployed to accomplish successful closure of the arteriotomy. ESTIMATED BLOOD LOSS: Minimal. CONDITION: Stable DISCHARGED TO: outpatient recovery. FINDINGS: Ultrasound image demonstrates a patent right common femoral artery. Initial arteriography of left internal iliac artery arteries demonstrated the left prostatic artery originating from left vesicoprostatic trunk (Type 1). Selective angiography of the left prostatic artery shows perfusion of the left prostate. This was embolized with particles and coil. There were no complications. Initial arteriography of left internal iliac artery arteries demonstrated the left prostatic artery originating from left vesicoprostatic trunk (Type 1). Selective angiography of the left prostatic artery shows perfusion of the left prostate. Rachel CT was performed to confirm position of the right prostate. This vessel was embolized with particles and coil. There were no complications. Procedure Note Edgar Ayala MD - 02/06/2025 EXAMINATION: DIAGNOSTIC PELVIC ANGIOGRAPHY WITH PROSTATE ARTERY EMBOLIZATION HISTORY/INDICATION: 74-year-old man with BPH causing lower urinary tract symptoms presents for prostate artery embolization. His IPSS is 21. His prostate volume is 66 cc ATTENDING PRESENCE: Edgar Ayala M.D., the attending radiologist was present from the beginning to the end of the procedure. SEDATION: Procedural sedation was administered under the attending physician's direction and continuous monitoring by a trained nurse specialist who was independent from those actually performing the procedure. Total monitored sedation time was 90 minutes. TECHNIQUE: The risks, benefits and alternatives were discussed and informed consent was obtained. Prior to beginning the procedure, [place] Protocol was performed to confirm the patient's identity and the planned procedure. The fluoroscopy time has been recorded in the electronic medical record. Maximum sterile barriers including cap, mask, hand hygiene, sterile gloves, sterile gown, large sterile drape and 2% chlorhexidine for cutaneous antisepsis were used. Marcia-procedural antibiotic prophylaxis was administered at the beginning of the case consisting of Cipro 400 mg IV. After sterile prep, the skin over the right common femoral artery was infiltrated with 1% Lidocaine. The artery was punctured under real time ultrasound guidance. An image of the patent vessel was recorded. A 6 Fr [place] Island[place] sheath was placed and connected to a heparinized saline drip. The side arm of the vascular sheath was used to perform a limited angiogram to confirm satisfactory position of arterial puncture site. Using fluoroscopic guidance, the following arteries were catheterized in sequences: Left internal iliac artery Left internal iliac artery anterior division Left prostatic artery (3rd order) Right internal iliac artery Right internal iliac artery anterior division Right prostatic artery (3rd order) The equipment used for catheterization was 5 [place] Cobra 2 and Sos catheters and a 0.035 Bentson and Glidewire guidewires. The equipment used for selective catheterization was Progreat catheter and a combination of Synchro and fathom wire. The following selective diagnostic angiograms were performed: Left internal iliac artery Left internal iliac artery anterior division Left prostatic artery (3rd order) Right internal iliac artery Right internal iliac artery anterior division Right prostatic artery (3rd order) (Rachel CT was also performed) The microcatheter tip was initially positioned in the proximal left prostatic artery and the position confirmed with injection of radiographic contrast media. Nitroglycerin 150 mcg intra arterial was injected through the microcatheter to promote vasodilation. Proximal embolization was then performed of the left prostatic artery was performed with 3 mL 300-500 um Embospheres, using appropriate precautions to the angiographic end point of near stasis. The PErFecTED technique was utilized for embolization of the left prostatic artery . Coil embolization was then performed using a 2 mm x 4 cm Embold coil. Post-embolization angiography was performed. Next, the microcatheter tip was positioned in the proximal right prostatic artery the position confirmed with injection of radiographic contrast media. Nitroglycerin 150 mcg intra arterial was injected through the microcatheter to promote vasodilation. Proximal embolization was then performed the target vascular territory using 3 mL 300-500 um Embospheres to the angiographic end point of near stasis. The PErFecTED technique was utilized for embolization of the right prostatic artery. Coil embolization was then performed using a 2 mm x 4 cm Embold coil. Post-embolization angiography was performed. Total embolization volume (particles): 6 ml Angioseal device was deployed to accomplish successful closure of the arteriotomy. ESTIMATED BLOOD LOSS: Minimal. CONDITION: Stable DISCHARGED TO: outpatient recovery. FINDINGS: Ultrasound image demonstrates a patent right common femoral artery. Initial arteriography of left internal iliac artery arteries demonstrated the left prostatic artery originating from left vesicoprostatic trunk (Type 1). Selective angiography of the left prostatic artery shows perfusion of the left prostate. This was embolized with particles and coil. There were no complications. Initial arteriography of left internal iliac artery arteries demonstrated the left prostatic artery originating from left vesicoprostatic trunk (Type 1). Selective angiography of the left prostatic artery shows perfusion of the left prostate. Rachel CT was performed to confirm position of the right prostate. This vessel was embolized with particles and coil. There were no complications. IMPRESSION: Successful bilateral prostate artery embolization to end-point of stasis using a combination of particles, and coils. PLAN: 2 hours flat then discharge home. Discharge medications will include Ibuprofen 600 mg po qid PRN for 5 days, Pyridium 200 mg TID x 3 days, ciprofloxacin 500 mg BID x 7 days, Dulcolax 20 mg daily x 7 days, Oxybutynin 5 mg daily x 5 days. IR will follow the patient clinically for the improvement of lower urinary tract symptoms in 4 weeks. Dictated by: Cuca Cruz M.D. The radiology attending physician has personally reviewed this study, and had reviewed and/or edited this written report and agrees with it. Electronically signed by: Edgar Ayala M.D. Edgar Ayala MD [facility] [place] IR PROCEDURES Final Re sult * Differential, auto (02/06/2025 6:00 AM CDT) Neutrophil abs 3.92 1.50 - 6.50 K/cumm Imm gran abs 0.03 0.00 - 0.10 K/cumm [facility] Lymphocyte abs 1.20 0.80 - 3.30 K/cumm [facility] Monocyte abs 0.52 0.20 - 0.80 K/cumm [facility] Eosinophil abs 0.14 0.00 - 0.50 K/cumm [facility] Basophil abs 0.05 0.00 - 0.10 K/cumm [facility] Neutrophil pct 66.8 % [facility] Comment: Interpretive Data Percent cell count reference ranges are not reported, since discordance with absolute values may lead to misinterpretation of CBC data. Current Interpretive Data was last revised on 2018. Imm gran pct 0.5 % [facility] Comment: Interpretive Data Percent cell count reference ranges are not reported, since discordance with absolute values may lead to misinterpretation of CBC data. Current Interpretive Data was last revised on 2018. Lymphocyte pct 20.5 % [facility] Comment: Interpretive Data Percent cell count reference ranges are not reported, since discordance with absolute values may lead to misinterpretation of CBC data. Current Interpretive Data was last revised on 2018. Monocyte pct 8.9 % [facility] Comment: Interpretive Data Percent cell count reference ranges are not reported, since discordance with absolute values may lead to misinterpretation of CBC data. Current Interpretive Data was last revised on 2018. Eosinophil pct 2.4 % [facility] Comment: Interpretive Data Percent cell count reference ranges are not reported, since discordance with absolute values may lead to misinterpretation of CBC data. Current Interpretive Data was last revised on 2018. Basophil pct 0.9 % [facility] Comment: Interpretive Data Percent cell count reference ranges are not reported, since discordance with absolute values may lead to misinterpretation of CBC data. Current Interpretive Data was last revised on 2018. Blood 02/06/2025 6:00 AM CDT 02/06/2025 6:11 AM CDT Edgar Ayala MD LAB BLOOD ORDERABLES Final Result Performing Organization Address [facility] Co de Phone Number [facility] [place] [address] * (ABNORMAL) CBC with auto differential (02/06/2025 6:00 AM CDT) WBC 5.86 3.80 - 9.90 K/cumm Hgb 12.2(L) 13.0 - 17.5 g/dL [facility] Hct 39.6 38.9 - 50.3 % [facility] Plt 281 150 - 400 K/cumm [facility] MPV 9.8 9.1 - 12.3 fL [facility] RBC 5.11 4.30 - 5.80 M/cumm [facility] MCV 77.5(L) 81.3 - 96.4 fL [facility] MCH 23.9(L) 27.1 - 33.3 pg [facility] MCHC 30.8(L) 32.3 - 35.7 g/dL [facility] RDW CV 20.9(H) 11.1 - 14.9 % [facility] RDW SD 58.6(H) 35.7 - 48.1 fL [facility] NRBC abs 0.00 0.00 - 0.01 K/cumm [facility] Blood 02/06/2025 6:00 AM CDT 02/06/2025 6:11 AM CDT Edgar Ayala MD LAB BLOOD ORDERABLES Final Result [facility] [place] [address] * Protime-INR (02/06/2025 6:00 AM CDT) PT 11.9 9.7 - 13.0 sec INR 1.10 0.90 - 1.20 [facility] Comment: Interpretive data Oral anticoagulant therapeutic ranges: Venous thromboembolism prophylaxis or treatment: 2.0-3.0 CARDIOLOGY Standard range: 2.0-3.0 High-intensity range: 2.5-3.5 Refer to indication-specific guidelines for appropriate target ranges for prosthetic heart valve replacement. Current interpretive data was last revised on 2019. Blood 02/06/2025 6:00 AM CDT 02/06/2025 6:11 AM CDT us Edgar Ayala MD LAB BLOOD ORDERABLES Final Result [facility] Department of Laboratories [place] [id number] from Last [address] [facility] Advance Directives For more information, please contact: [phone] * Full Code (Latest Code Status on File) Date Activated Date Inactivated Comments 02/06/2025 6:36 AM 02/07/2025 5:26 AM Care Teams Angle Shearer Relationship Specialty Start Date End Date Guido Pugh MD [address] [place] [address] PCP - General 09/13/17 Mark Mcfarlane MD [address] [place] [address] Install Technician Cardiology 05/31/19
--- OUTSIDE RECORDS SUMMARY | 2025-04-28 16:57 | XMS_ITS | Encounter Summary ---
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 us Historical Provider Final Res ult documented in this encounter Visit Diagnoses Not on filedocumented in this encounter Additional Health Concerns Infection Onset Date Last Indicated Resolved Time MRSA Comment:h/o staph infecion 04/25/2020 04/24/2020 05/29/2021 5: 00 AM CDT documented as of this encounter Care Teams Backup Sawyer Relationship Specialty Start Date End Date Guido Pugh MD [address] [place] [address] PCP - General 09/13/17 Mark Mcfarlane MD [address] [place] [address] Manager Molecular Cardiology 05/31/19 documented as of this encounter
--- OUTSIDE RECORDS SUMMARY | 2025-04-28 16:57 | XMS_ITS | Encounter Summary ---
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 us Historical Provider Final Res ult documented in this encounter Visit Diagnoses Not on filedocumented in this encounter Additional Health Concerns Infection Onset Date Last Indicated Resolved Time MRSA Comment:h/o staph infecion 04/25/2020 04/24/2020 05/29/2021 5: 00 AM CDT documented as of this encounter Care Teams Zinc Plating Machine Operator Relationship Specialty Start Date End Date Guido Pugh MD [address] [place] [address] PCP - General 09/13/17 Mark Mcfarlane MD [address] [place] [address] Aircraft Launch And Recovery Technician Cardiology 05/31/19 documented as of this encounter
--- OUTSIDE RECORDS SUMMARY | 2025-04-28 16:57 | XMS_ITS | Referral Summary ---
Author Organization [facility] Address [address] [place] [address] Care Team Providers Care Miniature Set Constructor Name Role Phone Guido Pugh MD Primary Care Provider [phone] Mark Mcfarlane MD Unavailable [phone] Encounters Date Type Department Care Team Description 04/24/2025 3:30 PM CDT Office Visit [facility] Cardiology [facility] [address] [address] Mark Mcfarlane MD Permanent atrial fibrillation (HCC) (Primary Dx); Non-occlusive coronary artery disease; Essential (primary) hypertension; Nonrheumatic aortic (valve) insufficiency; Cardiomyopathy, unspecified type (HCC); Mixed hyperlipidemia; Primary cardiomyopathy (HCC) 03/31/2025 Telephone [facility] Cardiology [facility] [address] [address] Mark Mcfarlane MD Scheduling Appointments 03/16/2025 4:00 PM CDT Telemedicine [facility] Radiology [address] [place] [phone] Edgar Ayala MD BPH with urinary obstruction (Primary Dx) 03/09/2025 11:03 AM CDT Anesthesia Event [facility] [address] [place] [address] Yoel Levine MD Bowers, Bart Steven, GABY 03/09/2025 11:20 AM CDT - 03/09/2025 1:10 PM CDT Surgery [facility] [place] [phone] Javier Ramachandran III, MD PERC SURYA CLOSE W/IMPLANT [id number] 03/09/2025 9:41 AM CDT - 03/09/2025 5:39 PM CDT Hospital Encounter [facility] [address] [place] [address] Javier Ramachandran III, MD PAF (paroxysmal atrial fibrillation) ([facility]LY [facility]) Discharge Disposition: Discharge to home or self care 03/02/2025 Telephone [facility] [address] [facility] [address] [phone] Whitley Smith RN 02/13/2025 Telephone [facility] Radiology [address] [place] [address] Ana Chatman, MINA 02/07/2025 Telephone [facility] Radiology [address] [place] [address] Ana Chatman, MINA 02/06/2025 6:00 AM CDT Office Visit [address] 1st [place] [phone] Urinary urgency; BPH with obstruction/lower urinary tract symptoms; H/O: HTN (hypertension) 02/06/2025 5:57 AM CDT - 02/06/2025 11:59 PM CDT Hospital Encounter [facility] Radiology [address] [place] [address] Edgar Ayala MD BPH with obstruction/lower urinary tract symptoms; Urinary urgency Discharge Disposition: Discharge to home or self care 02/01/2025 Telephone [facility] Radiology [address] [place] [address] Valentin Valdes RN from Last 3 Months Allergies Active Allergy Reactions Criticality Noted Date [...] moderate 1 Atherosclerotic heart diseas e of gambell coronary artery without angina pectoris 07/18/2024 Obstructive [...] (01/29/2024 1:00 PM CDT): Continue fu with NSY, TLSO. Pain control. Assessment & Plan (01/25/2024 3:45 PM CDT): This was described by radiology as nondisplaced and eval at [facility]. It was non-op Arthralgia 01/25/2024 History of congestive heart failure 09/14/2023 CHF (congestive heart failure) 08/20/2023 Assessment & Plan (02/05/2024 11:14 AM CDT): Compensated.Continue Metoprolol & Lasix. Dyspnea on exertion 12/03/2022 Assessment & Plan (12/03/2022 11:41 AM LICENSED SURVEYOR): No clear etiology for shortness of breath. [...] will make further recommendations. Current use of terminal make up operator anticoagulation 023 Assessment & Plan (12/03/2022 11:42 AM LICENSED SURVEYOR): Tolerating the anticoagulation. No history of any clinical bleeding Moderate mitral regurgitation 08/20/2022 Nonrheumatic aortic (valve) insufficiency 2021 Mixed hyperlipidemia 12/03/2021 Assessment & Plan (01/25/2024 3:41 PM CDT): Chronic, stable; cont rx pravastatin Assessment & Plan (12/03/2022 11:41 AM LICENSED SURVEYOR): Recent lipid panel looks good. LDL is 63. Continue pravastatin and I will repeat his the Chem 12, CBC and lipids in 6 months. Weight gain 12/03/2021 Chronic bronchitis 11/18/2021 Permanent atrial fibrillation 12/07/2020 Assessment & Plan (01/25/2024 3:42 PM CDT): Chronic, stable; cont rx apixaban Assessment & Plan (12/03/2022 11:42 AM LICENSED SURVEYOR): Heart rate is controlled. No clinical tachy-josep [...] metoprolol Assessment & Plan (12/03/2022 11:42 AM LICENSED SURVEYOR): Blood pressure is well controlled. Continue current medications including Lasix and the metoprolol. Continue low-salt diet. Non-occlusive coronary artery disease 04/11/2016 Assessment & Plan (12/03/2022 11:41 AM LICENSED SURVEYOR): No clinical angina but has shortness of [...] using his walker. I endorse admission to long-term care. The patient is at risk of [...] by examination 04/25/2020 02/05/2024 Elevated bilirubin 01/06/2018 Assessment & Plan (01/25/2024 3:42 PM CDT): [...] discontinued by Dr. Patino. Arthrodesis status 02/17/2017 Hypokalemia 11/05/2016 01/29/2024 Dyslipidemia 04/11/2016 12/03/2021 History of atrial fibrillation 04/11/2016 12/03/2021 Overview (06/02/2019): Patient had a loop recorder. In August he had a brief episode of A. fib. Patient currently taking the sotalol and atelectasis. Apparently the transmitter is not working. We discussed about removing the Linq device as he had it for 3 years. 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 Gender Identity Not on file Sexual Orientation [...] 03/09/2025 10:20 AM CDT Plan of Treatment Not on file Medical Devices Implanted Type Area Independent Jeweler Device Identifier Shelf Expiration Date Model / Serial / Lot [employer] Ignacia Device Closure 35mm Lt Watchman Flx Pro Cardiac Strl La [id number] - [id number] - [id number] Implanted:Qty: 1 on 03/09/2025 by Javier Ramachandran III, MD at [facility] Left Atrial Appendage Occluder Left: Atrial Appendage [employer] Ignacia 09/26/2027 [id number] / [id number] / [id number] [employer] V[employer] System Closure Repair Femoral Artery Suture Mediated Perclose Prostyle 82970-55 - [id number] - [id number] Implanted:Qty: 1 on 03/09/2025 by Javier Ramachandran III, MD at [facility] Vascular Closure Device Right: Femoral Vein [employer] 01/09/2027 [id number] / [id number] / [id number] [employer] System Closure Repair Femoral Artery Suture Mediated Perclose Prostyle 43272-69 - [id number] - [id number] Implanted:Qty: 1 on 03/09/2025 by Javier Ramachandran III, MD at [facility] Vascular Closure Device Right: Femoral Vein [employer] 01/09/2027 75712-40 / [id number] / [id number] [facility] [employer] Embosphere Prefill Saline Syringe Compressible Nonaggregate S420gh - [id number] Implanted:Qty: 1 on 02/06/2025 at [facility] [employer] 08/13/2027 [id number] / / [id number] [employer] Ignacia Coil Embo Detach Soft Embold [id number] Sterile Latex-Free [id number] - [id number] Implanted:Qty: 1 on 02/06/2025 at [facility] [employer] Ignacia 12/21/2026 [id number] / / [id number] [employer] Ignacia Coil Embo Detach Soft Embold [id number] Sterile Latex-Free [id number] 0 - [id number] Implanted:Qty: 1 on 02/06/2025 at [facility] [employer] Ignacia 11/14/2027 [id number] / / [id number] [employer] Angio-Seal Vip 6fr Closere Device [id number] - [id number] Implanted:Qty: 1 on 02/06/2025 at [facility] [employer] 08/29/2025 [id number] / / [id number] Procedures Procedure Name Priority Date/Time Associated Diagnosis Comments FLY GUIDANCE DURING CARDIAC STRUCTURAL INTVN [id number] Routine 03/09/2025 3:53 PM CDT PERC SURYA CLOSURE W/IMPLANT (WATCHMAN) [id number] Routine 03/09/2025 12:28 PM CDT PAF (paroxysmal atrial fibrillation) (FORMERLY [facility]) POCT ACTIVATED CLOTTING TIME, HIGH RANGE Routine 03/09/2025 12:21 PM CDT ID AN PROCEDURE PLACEHOLDER Routine 03/09/2025 12:08 PM CDT ID AN ELECTIVE ENDOTRACHEAL AIRWAY Routine 03/09/2025 12:08 [...] * FLY Guidance During Cardiac [place] Int[place] [id number] (03/09/2025 3:53 PM CDT) Anatomical Region Laterality Modality Echocardiography 03/09/2025 11:1 5 AM CDT Narrative 03/09/2025 5:20 PM CDT [facility] [address] [place] [address] TRANSESOPHAGEAL ECHOCARDIOGRAM Patient Name: BRIGITTE OLIVEIRA : 1950 (74y 7m) Gender: M Study Date: 03/09/2025 11:15:43 AM Ht(Inch): 70 Wt(Lb): 275.99 BSA: 2.49 Instrument Man: DOLORES Location: 6143 Order Provider: JAVIER RAMACHANDRAN [...] end of the case. Predominant flow is gzfn-gd-ogcuc. Mitral Valve: Normal appearance of the mitral [...] end of the case. Predominant flow is wndj-hk-wqrfk. 6. No left atrial appendage thrombus at the start of the case. During the case a left atrial appendage occlusion device was deployed in the left atrial appendage. It appears well-seated. There is no color Doppler flow around the device. Electronically Signed By: Abelardo mckeon 03/09/2025 5:19:54 PM CDT Procedure Note Abelardo Miller MD - 03/09/2025 [facility] [address] [place] [address] TRANSESOPHAGEAL ECHOCARDIOGRAM Patient Name: BRIGTITE OLIVEIRA : 1950 (74y 7m) Gender: M Study Date: 03/09/2025 11:15:43 AM Ht(Inch): 70 Wt(Lb): 275.99 BSA: 2.49 Instrument Man: DOLORES Location: 6143 Order Provider: JAVIER RAMACHANDRAN [...] the end of thecase. Predominant flow is pcvq-fo-vrhoq. Mitral Valve: Normal appearance of the mitral [...] the end of the case.Predominant flow is meka-bz-wfpxq. 6. No left atrial appendage thrombus at the start of the case. During thecase a left atrial appendage occlusion device was deployed in the left atrialappendage. It appears well-seated. There is no color Doppler flow around the device. Electronically Signed By: Abelardo mckeon 03/09/2025 5:19:54 PM CDT Javier Ramachandran III, MD CV ECHO PROCEDURES Final Result * PERC SURYA CLOSURE W/IMPLANT (WATCHMAN) [id number] (03/09/2025 12:28 PM CDT) Anatomical Region Laterality Modality X-Ray Angiograph y us Javier Ramachandran III, MD CV ELECTROPHYSIOLOG Y PROCS Final Result * (ABNORMAL) POC Activated Clotting Time, High Range (03/09/2025 12:21 PM CDT) ACT 371(H) 87 - 138 sec POC Performer [id number] [facility] Blood 03/09/2025 12:2 1 PM CDT 03/09/2025 12:21 PM CDT Javier Ramachandran III, MD LAB BLOOD ORDERABLE S Final Result Performing Organization Address City/State/[facility] Co de Phone Number [facility] [address] Department [place] [address] * ID AN ELECTIVE ENDOTRACHEAL AIRWAY, ID AN PROCEDURE PLACEHOLDER (03/09/2025 12:08 PM CDT) Narrative Hermilo Gtz CRNA - 03/09/2025 12:08 PM CDT Hermilo Gtz CRNA 03/09/2025 12:10 PM Airway Patient location: OR Urgency: elective Date/time: 03/09/2025 11:16 PM Indications for airway management: anesthesia Difficult airway: no Staff: Supervising provider: Yoel Levine MD Placed by: WELL LOGGING CAPTAIN: Hermilo Gtz CRNA Emergent airway documentation: Risks [...] 332(H) 87 - 138 sec POC Performer [id number] [facility] Blood 03/09/2025 12:0 8 PM CDT 03/09/2025 12:08 PM CDT Javier Ramachandran III, MD LAB BLOOD ORDERABLE S Final Result Performing Organization Address [facility] Co de Phone Number [facility] [address] Department [place] [address] * ECG 12 lead (03/09/2025 10:20 AM CDT) 03/09/2025 10:2 0 AM CDT Narrative [facility] - 03/09/2025 10:32 AM CDT Vent Rate: 56 bpm RR Interval: 1066 msec ID Interval: 0 msec QRS Duration: 113 msec QT Interval: 402 msec QTC Interval: 393 msec P-R-T [place]: 0 - -18 - 9 degrees IMPRESSION: ATRIAL FIBRILLATION WITH SLOW VENTRICULAR RESPONSE MODERATE INTRAVENTRICULAR CONDUCTION DELAY [110+ ms QRS DURATION] ABNORMAL RHYTHM ECG Electronically Signed By: Fredy Paulson MD PhD Javier Ramachandran III, MD ECG ORDERABLES Fin al Result Performing Organization Address [facility] Co de Phone Number [facility] [employer] [facility] * Check Sample (03/09/2025 10:15 AM CDT) Pathologist [facility] ABO Rh A Positive MBC HCLL OTHER 03/09/2025 10:1 5 AM CDT 03/09/2025 10:44 AM CDT Javier Ramachandran III, MD LAB BLOOD ORDERABLE S Final Result Performing Organization Address [facility] Co de Phone Number [facility] [address] Department [place] [employer] [place] [address] MBC * eGFR (03/09/2025 10:04 AM CDT) [...] of Race in Diagnosing Kidney Disease, JASN 2020). The CKD-EPI equation should not be used for patients with unstable renal function and has not been validated in children and those over 70. Current interpretive data was last reviewed 2021. Blood 03/09/2025 10:0 4 AM CDT 03/09/2025 10:14 AM CDT Javier Ramachandran III, MD LAB BLOOD ORDERABLE S Final Result Performing Organization Address City/[facility]/ZIP Co de Phone Number [facility] [address] Department [employer] [place], [place] [id number] * Type and screen (03/09/2025 10:04 AM CDT) ABO Rh A Positive Corine, indirect Negative [facility] Blood 03/09/2025 10:0 4 AM CDT 03/09/2025 10:31 AM CDT Narrative [facility] - 03/09/2025 11:14 AM CDT Has the patient had Daratumumab or Isatuximab in the past 6 months?->Unknown Javier Ramachandran III, MD LAB BLOOD BANK TEST ORDERABLES Final Result Performing Organization Address City/[facility]/ZIP Co de Phone Number [facility] [address] Department [place] [employer] [place] [address] * Basic metabolic panel (03/09/2025 10:04 AM CDT) [facility] Sodium 143 135 - 145 mmol/L Potassium, pl 4.3 3.3 - 4.9 mmol/L [facility] Chloride 105 97 - 110 mmol/L [facility] CO2 29 22 - 32 mmol/L [facility] Anion gap 9 2 - 15 mmol/L [facility] BUN 19 6 - 25 mg/dL [facility] Creatinine 0.95 0.80 - 1.30 mg/dL [facility] Glucose 100 70 - 199 mg/dL [facility] Comment: Interpretive Data Fasting glucose [...] 2022. Calcium 9.6 8.5 - 10.3 mg/dL [facility] Blood 03/09/2025 10:0 4 AM CDT 03/09/2025 10:14 AM CDT Javier Ramachandran III, MD LAB BLOOD ORDERABLE S Final Result Performing Organization Address City/[facility]/ZIP Co de Phone Number [facility] [address] Department [place] [address] * IR Embolization Tumor Organ Ischemia or [...] was obtained. Prior to beginning the procedure, [place] Protocol was performed to confirm the patient's [...] patent vessel was recorded. A 6 Fr Jamaican sheath was placed and connected to a [...] The equipment used for catheterization was 5 Jamaican Cobra 2 and Sos catheters and a [...] was obtained. Prior to beginning the procedure, [place] Protocol was performed to confirm the patient's [...] patent vessel was recorded. A 6 Fr Jamaican sheath was placed and connected to a [...] The equipment used for catheterization was 5 Jamaican Cobra 2 and Sos catheters and a [...] by: Edgar Ayala M.D. Edgar Ayala MD IMG IR PROCEDURES Final Re sult * Differential, auto (02/06/2025 6:00 AM CDT) Neutrophil abs 3.92 1.50 - 6.50 K/cumm Imm gran abs 0.03 0.00 - 0.10 K/cumm [facility] Lymphocyte abs 1.20 0.80 - 3.30 K/cumm [facility] Monocyte abs 0.52 0.20 - 0.80 K/cumm [facility] Eosinophil abs 0.14 0.00 - 0.50 K/cumm [facility] Basophil abs 0.05 0.00 - 0.10 K/cumm [facility] Neutrophil pct 66.8 % [facility] Comment: Interpretive Data Percent cell count reference ranges are not reported, since discordance with absolute values may lead to misinterpretation of CBC data. Current Interpretive Data was last revised on 2018. Imm gran pct 0.5 % [facility] Comment: Interpretive Data Percent cell count reference ranges are not reported, since discordance with absolute values may lead to misinterpretation of CBC data. Current Interpretive Data was last revised on 2018. Lymphocyte pct 20.5 % [facility] Comment: Interpretive Data Percent cell count reference ranges are not reported, since discordance with absolute values may lead to misinterpretation of CBC data. Current Interpretive Data was last revised on 2018. Monocyte pct 8.9 % [facility] Comment: Interpretive Data Percent cell count reference ranges are not reported, since discordance with absolute values may lead to misinterpretation of CBC data. Current Interpretive Data was last revised on 2018. Eosinophil pct 2.4 % [facility] Comment: Interpretive Data Percent cell count reference ranges are not reported, since discordance with absolute values may lead to misinterpretation of CBC data. Current Interpretive Data was last revised on 2018. Basophil pct 0.9 % [facility] Comment: Interpretive Data Percent cell count reference ranges are not reported, since discordance with absolute values may lead to misinterpretation of CBC data. Current Interpretive Data was last revised on 2018. Blood 02/06/2025 6:00 AM CDT 02/06/2025 6:11 AM CDT us Edgar Ayala MD LAB BLOOD ORDERABLES Final Result [facility] Department [place] [address] * (ABNORMAL) CBC with auto differential (02/06/2025 6:00 AM CDT) WBC 5.86 3.80 - 9.90 K/cumm Hgb 12.2(L) 13.0 - 17.5 g/dL [facility] Hct 39.6 38.9 - 50.3 % [facility] Plt 281 150 - 400 K/cumm [facility] MPV 9.8 9.1 - 12.3 fL [facility] RBC 5.11 4.30 - 5.80 M/cumm [facility] MCV 77.5(L) 81.3 - 96.4 fL [facility] MCH 23.9(L) 27.1 - 33.3 pg [facility] MCHC 30.8(L) 32.3 - 35.7 g/dL [facility] RDW CV 20.9(H) 11.1 - 14.9 % [facility] RDW SD 58.6(H) 35.7 - 48.1 fL [facility] NRBC abs 0.00 0.00 - 0.01 K/cumm [facility] Blood 02/06/2025 6:00 AM CDT 02/06/2025 6:11 AM CDT Edgar Ayala MD LAB BLOOD ORDERABLES Final Result Performing Organization Address [facility] de Phone Number [facility] [place] [address] * Protime-INR (02/06/2025 6:00 AM CDT) PT 11.9 9.7 - 13.0 sec INR 1.10 0.90 - 1.20 [facility] Comment: Interpretive data Oral anticoagulant therapeutic ranges: Venous thromboembolism prophylaxis or treatment: 2.0-3.0 CARDIOLOGY Standard range: 2.0-3.0 High-intensity range: 2.5-3.5 Refer to indication-specific guidelines for appropriate target ranges for prosthetic heart valve replacement. Current interpretive data was last revised on 2019. Blood 02/06/2025 6:00 AM CDT 02/06/2025 6:11 AM CDT us Edgar Ayala MD LAB BLOOD ORDERABLES Final Result Performing Organization Address [facility] de Phone Number [facility] [place] [address] from Last 3 Months Insurance [facility] Advance Directives For more information, please contact: [phone] * Full Code (Latest Code Status on File) Date Activated Date Inactivated Comments 02/06/2025 6:36 AM 02/07/2025 5:26 AM Care Teams Miniature Set Constructor Relationship Specialty Start Date End Date Guido Pugh MD [address] [place] [address] PCP - General 09/13/17 Mark Mcfarlane MD [address] [place] [address] Quality Improvement Manager Cardiology 05/31/19
--- OUTSIDE RECORDS SUMMARY | 2025-04-28 16:57 | XMS_ITS | Encounter Summary ---
Author Organization [facility] Facility Care Team Providers Care Trauma Director Name Role Phone Guido Pugh MD Primary Care Provider [phone] Mark Mcfarlane MD Unavailable [phone] Encounter Details Date Type Department Care Team (Latest Contact Info) Description 05/04/2017 Orders Only [facility] CLINCON[facility] ProviderJonh MD [address] [place] [id number] Social History Tobacco Use Types Packs/Day Years Used Date Smoking Tobacco: Never Assessed Sex and Gender Information Value Date Recorded Sex Assigned at Not on file Legal Sex Male 3:[address] ABSTRA[address] Gender Identity Not on file Sexual Orientation Not on file documented as of this encounter Plan of Treatment Not on file documented as of this encounter Procedures Procedure Name Priority Date/Time Associated Diagnosis Comments CARDIOLOGY REPORT 05/04/2017 12: 00 AM CDT documented in this encounter Results * CARDIOLOGY REPORT (05/04/2017 12:00 AM CDT) Anatomical Region Laterality Modality Other Narrative 05/04/2017 12:00 AM CDT Ordered by an unspecified provider. Historical Provider [facility] JENISE JONES Final Result documented in this encounter Visit Diagnoses Not on filedocumented in this encounter Additional Health Concerns Infection Onset Date Last Indicated Resolved Time MRSA Comment:h/o staph infecion 04/25/2020 04/24/2020 05/29/2021 5: 00 AM CDT documented as of this encounter Care Teams Trauma Director Relationship Specialty Start Date End Date Guido Pugh MD [address] [place] [address] PCP - General 09/13/17 Mark Mcfarlane MD [address] [place] [address] Machine Carton Marker Cardiology 05/31/19 documented as of this encounter
--- OUTSIDE RECORDS SUMMARY | 2025-04-28 16:57 | XMS_ITS | Encounter Summary ---
Author Organization [facility] Facility Care Team Providers Care Clerk Of Court Name Role Phone Guido Pugh MD Primary Care Provider [phone] Mark Mcfarlane MD Unavailable [phone] Encounter Details Date Type Department Care Team (Latest Contact Info) Description 03/10/2017 Orders Only [facility] CLINCONV ProviderJohn MD [address] [place] [address] Social History Tobacco Use Types Packs/Day Years Used Date Smoking Tobacco: Never Assessed Sex and Gender Information Value Date Recorded Sex Assigned at Not on file Legal Sex Male 3:19 PM ECHOCARDIOGRAPHY TECHNOLOGIST Gender Identity Not on file Sexual Orientation Not on file documented as of this encounter Plan of Treatment Not on file documented as of this encounter Procedures Procedure Name Priority Date/Time Associated Diagnosis Comments CARDIOLOGY REPORT 03/10/2017 12: 00 AM CDT documented in this encounter Results * CARDIOLOGY REPORT (03/10/2017 12:00 AM CDT) Anatomical Region Laterality Modality Other Narrative 03/10/2017 12:00 AM CDT Ordered by an unspecified provider. Historical Provider [facility] CARDIAC SERVICES JENISE JONES Final Result documented in this encounter Visit Diagnoses Not on filedocumented in this encounter Additional Health Concerns Infection Onset Date Last Indicated Resolved Time MRSA Comment:h/o staph infecion 04/25/2020 04/24/2020 05/29/2021 5: 00 AM CDT documented as of this encounter Care Teams Clerk Of Court Relationship Specialty Start Date End Date Guido Pugh MD [address] [place] [address] PCP - General 09/13/17 Mark Mcfarlane MD [address] [place] [address] Administrative Support Associate Cardiology 05/31/19 documented as of this encounter
--- OUTSIDE RECORDS SUMMARY | 2025-04-28 16:57 | XMS_ITS | Encounter Summary ---
Author Organization [facility] Address [facility] [place] [address] Care Team Providers Care Crime Scene Specialist Name Role Phone Guido Pugh MD Primary Care Provider [phone] Negrita Kaminski RN Unavailable [phone] Maeve Hopper MD, Flores Unavailable [phone] Yajaira Keenan RN Unavailable Negrita Kaminski RN Unavailable [phone] Negrita Kaminski RN Unavailable [phone] Encounter Details Date Type Department Care Team (Late st Contact Info) Description 03/15/2021 Abstract [facility] [address] Maricruz Pizano MA Social History Tobacco Use Types Packs/Day Years Used Date Smoking Tobacco: Never Smokeless Tobacco: Never Alcohol Use Standard Drinks/Week Comments Not Currently 0 (1 standard drink = 0.6 oz pur e alcohol) AUDIT-C Answer Date Recorded Frequency of Alcohol Consumption Monthly or less 09/13/2018 Average Number of Drinks 1 or 2 018 Frequency of Binge Drinking Not on file 12/2017 PHQ-2 Answer Date Recorded PHQ-2 Score - If the patient scores above 3, please move on to questions 3-9 6 10/25/2020 Sex and Gender Information Value Date Recorded Sex Assigned at Male 09/13/2018 11:29 AM SEAM STAYER Legal Sex Male 5:07 PM CDT Gender Identity Male 09/13/2018 11:29 AM SEAM STAYER Sexual Orientation Straight 09/13/2018 11 :29 AM SEAM STAYER COVID-19 Exposure Response Date Recorded In the last month, have you been in contact with someone who was confirmed or suspected to have Coronavirus / COVID-19? No / Unsure 02/13/2021 10:41 AM CDT documented as of this encounter Plan of Treatment Upcoming Encounters Date Type Department Care Team (Late st Contact Info) Description 05/25/2025 1:00 PM CDT Office Visit [facility] Family & Internal Medicine [address] [phone] Guido Pugh MD [address] [place] [address] [phone] documented as of this encounter Goals Goal Patient Goal Type Associated Problems Recent Progress Patient-Stated? Author Therapy to increase mobility Care Plan [facility] HP OUTPATIENT PROBLEM No Naomi Carter RN Establish Regular Follow-Ups with PCP Care Plan [facility] HP OUTPATIENT PROBLEM No Naomi Carter RN Consistently taking medication as prescribed Care Plan removal of hardware and instrumentation from [id number], 05/06 L2-3 laminectomy, L1 chevron osteotomy, L1-2 TLIF, and IPSF from [id number] 05/06 No Naomi Carter, MINA Establish Regular Follow-Ups with PCP Care Plan removal of hardware and instrumentation from [id number], 05/06 L2-3 laminectomy, L1 chevron osteotomy, L1-2 TLIF, and IPSF from [id number] 05/06 No Naomi Carter RN documented as of this encounter Procedures Procedure Name Priority Date/Time Associated Diagnosis Comments PROTIME (OUTSIDE LAB) Routine 03/14/2021 CBC (OUTSIDE LAB) Routine 03/14/2021 BASIC METABOLIC PANEL Routine 03/14/2021 documented in this encounter Results * PROTIME (OUTSIDE LAB) (03/14/2021) PROTIME 10.9 INR 1.1 03/14/2021 [facility] Abstract LAB-OUTSIDE/ABSTRACTED Final Result * CBC (OUTSIDE LAB) (03/14/2021) WBC 5.1 HGB 15.1 HCT 45.3 PLT 222 03/14/2021 [facility] Abstract LAB-OUTSIDE/ABSTRACTED Final Result * BASIC METABOLIC PANEL (03/14/2021) SODIUM S/P/B 141 POTASSIUM S/P/B 4.4 CO2 27 CHLORIDE S/P/B 107 GLUCOSE 96 mg/dL CALCIUM S/P/B 9.5 BUN 13 CREATININE S/P/B 1.0 0.7 - 1.3 EGFR AFR. AMER. 87 <=90 EGFR NON-AFR. AMER. 75 <=90 03/14/2021 [facility] Abstract LABORATORY Final Result documented in this encounter Visit Diagnoses Not on filedocumented in this encounter Additional Health Concerns Active Problems Noted Date Diagnosed Date [facility] HP OUTPATIENT PROBLEM 05/16/2019 removal of hardware and inst rumentation from [id number], 05/06 L2-3 laminectomy, L1 chevron osteotomy, L1-2 TLIF, and IPSF from [id number] 05/0605/23/2019 Infection Onset Date Last Indicated Resolved Time COVID-19 Rule Out 03/18/2021 03/18/2021 03/19/2021 2:16 PM CDT COVID-19 Rule Out 10/23/2022 10/23/2022 10/23/2022 3:55 PM SEAM STAYER COVID-19 Rule Out 08/20/2023 08/20/2023 08/20/2023 1:58 PM SEAM STAYER COVID-19 Rule Out 11/08/2024 11/08/2024 11/08/2024 12:01 PM SEAM STAYER Influenza - Seasonal 11/08/2024 11/08/2024 025 12:32 AM SEAM STAYER Assessment Noted Time PHQ-9 Depression Total Score: 22 021 8:16 AM SEAM STAYER documented as of this encounter Care Teams Crime Scene Specialist Relationship Specialty Start Date End Date Guido Pugh MD [address] [place] [address] PCP - General 04/28/17 Negrita Kaminski, RN [address] [place] [address] Eligibility Supervisor (Ambulatory) REGISTERED NURSE 03/22/21 Mark Mcfarlane MD [address] [facility] [place] [address] INTERNAL MEDICINE 07/15/23 Yajaira Keenan, RN [address] [place] [address] Eligibility Supervisor (Ambulatory) REGISTERED NURSE 08/21/23 Negrita Kaminski, RN [address] [place] [address] Registered Nurse CARE MANAGEMENT 01/15/24 02/22/24 Negrita Kaminski, RN [address] [place] [address] Registered Nurse CARE MANAGEMENT 07/07/24 documented as of this encounter
--- OUTSIDE RECORDS SUMMARY | 2025-04-28 16:57 | XMS_ITS ---
Author Name Auto Generated, Auto Generated Organization [facility] [facility] ices Address [address] [place] [address] Phone [phone] Care Team Providers Care Compliance Assistant Name Role Phone Moses Lenz Unavailable Guido Pugh Unavailable [phone] Functional Status No Results Mental Status No Results Allergies and Intolerances Name Onset Date Reaction Severity amiodarone (Allergy) ThuMay 11 19:29:00 EDT 201 9 ketamine (Allergy) ThuMay 11 19:29:00 EDT 2019 Encounters Program Name Primary Diagnosis Admission Date/Time Dis charge Date/Time Home Care ThuJul 17 20:00 :00 EDT 2023Jul 22 19:59:59 EDT 2023 Medications Medication Directions Start Date End Date oxyCODONE-acetaminophen 5 mg-325 mg tablet 1 TAB TABLET Oral PRN Every 4 Hours PRN CHRONIC PAINRX [id number] FILLED AT [facility] ThuJul 22 01:00:00 EDT 2023Jul 22:00:00 EDT 2023 Miralax 17 gram oral powder packet 17 GRAM POWDER IN PACKET (EA) Oral PRN Every 1 Day PRN CONSTIPATION ThuJul 22 01:00:00 EDT 2023Jul 22:00:00 EDT 2023 bisacodyL 10 mg rectal suppository 1 SUPPOSITORY SUPPOSITORY, RECTAL Rectal PRN Every 1 Day PRN CONSTIPATION ThuJul 22:00:00 EDT 2023Jul 22:00:00 EDT 2023 celecoxib 100 mg capsule 1 CAP CAPSULE O ral 2 Times Daily for 30 Days ThuJul 18 01:00:00 EDT 2023Jul 22 01:00:00 EDT 2023 docusate sodium 100 mg capsule 1 CAP CAPSULE Oral 2 Times Daily for 15 Days ThuJul 18 01:00:00 EDT 2023Jul 22:00:2023 pregabalin 300 mg capsule 1 CAP CAPSULE Oral 2 Times Daily ThuJul 18:00:00 EDT 2023Jul 22:00:00 EDT 2023 pregabalin 50 mg capsule 1 CAP CAPSULE O ral 2 Times Daily ThuJul 18:00:00 EDT 2023Jul 22:00: EDT 2023 DULoxetine 60 mg capsule,delayed release 1 CAP CAPSULE,DELAYED RELEASE (ENTERIC COATED) Oral Every 1 Day ThuJul 18:00: ED2023Jul 22::00 EDT 2023 Eliquis 5 mg tablet 1 TAB TABLET Oral 2 Times Daily ThuJul 18:00:00 EDT 2023Jul 22:00:00 EDT 2023 eszopiclone 3 mg tablet 1 TAB TABLET Ora l Hour Of Sleep ThuJul 18:00:00 EDT 2023Jul 22:00:00 EDT 2023 furosemide 40 mg tablet 1 TAB TABLET Ora l Every 7 Days ThuJul 18:00:00 EDT 2023Jul 22:00:00 EDT 2023 [place] 5 mg-325 mg tablet 1 TAB TABLET Or al PRN Every 4 Hours PRN MODERATE TO SEVERE PAIN ThuJul 18:00:00 EDT 2023Jul 22:00:00 EDT 2023 metoprolol tartrate 100 mg tablet 1 TAB TABLET Oral 2 Times Daily ThuJul 18:00:00 ED2023Jul 22:00:00 EDT 2023 montelukast 10 mg tablet 1 TAB TABLET Or al Every 1 Day ThuJul 18:00:2023Jul 22:00:00 EDT 2023 oxyBUTYnin chloride ER 15 mg tablet,extended release 24 hr 1 TAB TABLET, EXTENDED RELEASE 24 HR Oral Every 1 Day ThuJul 18:00:00 EDT 2023Jul 22:00:00 EDT 2023 pantoprazole 40 mg tablet,delayed release 1 TAB TABLET, DELAYED RELEASE (ENTERIC COATED) Oral Every 1 Day ThuJul 18:00:00 ED2023Jul 22:00:00 EDT 2023 pravastatin 40 mg tablet 1 TAB TABLET Or al Every 1 Day ThuJul 18:00:00 2023Jul 22:00:00 EDT 2024 Vitamin D2 50,000 unit capsule 1 capsule CAPSULE Oral 1 Time Weekly dx- vitamin d deficiency. 1 tab weekly on thursdayMay 16 17:00:00 EDT 2018May 20 01:00:00 EDT 2018 TUBErsol 5 tub. unit/0.1 mL intradermal injection solution 0.1 ml VIAL (ML) Intradermal 1 Time Weekly for 2 Weeks (PPD) 1st injection upon admission. Read between 48 and 72 hours and give 2nd injection 1 week after the 1st if result is negative. If positive result, proceed with chest x-ray to rule out active disease. ThuMay 12 13:00:00 EDT 2018May 20 01:00:00 EDT 2018 TUBErsol 5 tub. unit/0.1 mL intradermal injection solution Read Results VIAL (ML) Other 1 Time Weekly for 2 Weeks Read results between 48-72 hours after 1st and 2nd 1 week apart. If positive do chest x-ray to rule out active disease. ThuMay 16 13:00:00 EDT 2018May 20 01:00:00 EDT 2018 Tylenol 325 mg tablet 650mg TABLET Oral PRN Every 6 Hours Pain ThuMay 12 18:00:00 EDT 2018May 20 01:00:00 EDT 2018 sotalol 80 mg tablet 80mg TABLET Oral 2 Times Daily BP and/or Pulse Hold: Systolic Blood Pressure < 100 Hold;Pulse < 50 Hold;. ThuMay 12 18:00:00 ED2018May 20 01:00:00 EDT 2018 Colace 100 mg capsule 100mg CAPSULE Oral 2 Times Daily constipation ThuMay 11 21:00:00 ED2018May 19 17:59:00 ED2018 Senokot 8.6 mg tablet 1 tab TABLET Oral 2 Times Daily constipation ThuMay 11 21:00:00 ED2018May 12 00:06:00 ED2018 tiZANidine 4 mg tablet 2 tabs TABLET Ora l PRN Every 8 Hours muscle spasms ThuMay 11 01:00:00 ED2018May 20 01:00:00 ED2018 Eliquis 5 mg tablet 5mg TABLET Oral 2 Ti mes Daily a-fib ThuMay 11 21:00:00 EDT 2018May 20 01:00:00 EDT 2018 furosemide 40 mg tablet 40mg TABLET Oral 1 Time Daily ThuMay 12 01:00:00 ED2018May 20 01:00:00 EDT 2018 oxyCODONE-acetaminophen 5 mg-325 mg tablet 1 tab TABLET Oral PRN Every 4 Hours pain ThuMay 11 01:00:00 EDT 2018May 20 01:00:00 EDT 2018 pravastatin 20 mg tablet 20mg TABLET Ora l 1 Time Daily HLD ThuMay 12 01:00:00 EDT 2018May 20 01:00:00 EDT 2018 sotalol 80 mg tablet 80mg TABLET Oral 2 Times Daily HTN ThuMay 11 21:00:00 EDT 2018May 12 18:48:00 EDT 2018 Senokot 8.6 mg tablet 1 tab TABLET Oral PRN 2 Times Daily constipation ThuMay 12 01:00:00 EDT 2018May 20 01:00:00 EDT 2018 Problems Active Concerns * Encounter for other orthopedic aftercare* Code: * Start Date: ThuMay 11 00:00:00 EDT 2018 * End Date: * Text: * Spinal stenosis, lumbar region without neurogenic claudication* Code: * Start Date: ThuMay 11 00:00:00 EDT 2018 * End Date: * Text: * Arthrodesis status* Code: * Start Date: ThuMay 11 00:00:00 EDT 2018 * End Date: * Text: * Fusion of spine, lumbar region* Code: * Start Date: ThuMay 11 00:00:00 EDT 2018 * End Date: * Text: * Other chronic pain* Code: * Start Date: ThuMay 11 00:00:00 EDT 2018 * End Date: * Text: * Low back pain* Code: * Start Date: ThuMay 11 00:00:00 EDT 2018 * End Date: * Text: * Paroxysmal atrial fibrillation* Code: * Start Date: ThuMay 11 00:00:00 EDT 2018 * End Date: * Text: * Essential (primary) hypertension* Code: * Start Date: ThuMay 11 00:00:00 EDT 2018 * End Date: * Text: * Hyperlipidemia, unspecified* Code: * Start Date: ThuMay 11 00:00:00 EDT 2018 * End Date: * Text: * Acute posthemorrhagic anemia* Code: * Start Date: ThuMay 11 00:00:00 EDT 2018 * End Date: * Text: * History of falling* Code: * Start Date: ThuJul 18 00:00:00 EDT 2023 * End Date: * Text: * Presence of artificial hip joint, bilateral* Code: * Start Date: ThuJul 18 00:00:00 EDT 2023 * End Date: * Text: * Presence of left artificial shoulder joint* Code: * Start Date: ThuJul 18 00:00:00 EDT 2023 * End Date: * Text: * Presence of other cardiac implants and grafts* Code: * Start Date: ThuJul 18 00:00:00 EDT 2023 * End Date: * Text: * long term care phlebotomist (current) use of anticoagulants* Code: * Start Date: ThuJul 18 00:00:00 EDT 2023 * End Date: * Text: * Major depressive disorder, recurrent, moderate* Code: * Start Date: ThuJul 18 00:00:00 EDT 2023 * End Date: * Text: * Body mass index [BMI] 35.0-35.9, adult* Code: * Start Date: ThuJul 18 00:00:00 EDT 2023 * End Date: * Text: * Obesity, class 2* Code: * Start Date: ThuJul 18 00:00:00 EDT 2023 * End Date: * Text: * Other specified polyneuropathies* Code: * Start Date: ThuJul 18 00:00:00 EDT 2023 * End Date: * Text: * Atherosclerotic heart disease of [place] coronary artery without angina pectoris* Code: * Start Date: ThuJul 18 00:00:00 EDT 2023 * End Date: * Text: * Cardiomyopathy, unspecified* Code: * Start Date: ThuJul 18 00:00:00 EDT 2023 * End Date: * Text: * Obstructive sleep apnea (adult) (pediatric)* Code: * Start Date: ThuJul 18 00:00:00 EDT 2023 * End Date: * Text: * Chronic obstructive pulmonary disease, unspecified* Code: * Start Date: ThuJul 18 00:00:00 EDT 2023 * End Date: * Text: * Unspecified atrial fibrillation* Code: * Start Date: ThuJul 18 00:00:00 EDT 2023 * End Date: * Text: * Bilateral primary osteoarthritis of hip* Code: * Start Date: ThuJul 18 00:00:00 EDT 2023 * End Date: * Text: * Recurrent dislocation, left hip* Code: * Start Date: ThuJul 18 00:00:00 EDT 2023 * End Date: * Text: * Other mechanical complication of internal left hip prosthesis, subsequent encounter* Code: * Start Date: ThuJul 18 00:00:00 EDT 2023 * End Date: * Text: Reason for Referral Past Medical History
--- OUTSIDE RECORDS SUMMARY | 2025-04-28 16:57 | XMS_ITS | Encounter Summary ---
Author Organization [facility] Address [facility] [place] [address] Care Team Providers Care Industrial Eng Name Role Phone Guido Pugh MD Primary Care Provider [phone] Naomi Carter RN Unavailable [phone] Clara Martin PharmD Unavailable [phone] Negrita Kaminski RN Unavailable [phone] Maeve Hopper MD, Flores Unavailable [phone] Yajaira Keenan RN Unavailable Negrita Kaminski RN Unavailable [phone] Negrita Kaminski RN Unavailable + Encounter Details Date Type Department Care Team (Latest Contact Info) Description 06/07/2018 Abstract [facility] , John Lopez MD Social History Tobacco Use Types Packs/Day Years Used Date Smoking Tobacco: Never Smokeless Tobacco: Never Alcohol Use Standard Drinks/Week Comments Yes 0 (1 standard drink = 0.6 oz pur e alcohol) ARACELI ONCE IN A WHILE Sex and Gender Information Value Date Recorded Sex Assigned at Male 09/13/2018 11:29 AM AIRLINE SECURITY REPRESENTATIVE Legal Sex Male 5:07 PM CDT Gender Identity Male 09/13/2018 11:29 AM AIRLINE SECURITY REPRESENTATIVE Sexual Orientation Straight 09/13/2018 11 :29 AM AIRLINE SECURITY REPRESENTATIVE documented as of this encounter Plan of Treatment Upcoming Encounters Date Type Department Care Team (Late st Contact Info) Description 05/25/2025 1:00 PM CDT Office Visit [facility] Family & Internal Medicine [facility] [address] [place] [address] Guido Pugh MD [address] [place] [address] documented as of this encounter Visit Diagnoses Not on filedocumented in this encounter Additional Health Concerns Infection Onset Date Last Indicated Resolved Time COVID-19 Rule Out 06/25/2020 06/25/2020 08/24/2020 12:32 AM AIRLINE SECURITY REPRESENTATIVE COVID-19 Rule Out 03/18/2021 03/18/2021 03/19/2021 2:16 PM CDT COVID-19 Rule Out 10/23/2022 10/23/2022 10/23/2022 3:55 PM AIRLINE SECURITY REPRESENTATIVE COVID-19 Rule Out 08/20/2023 08/20/2023 08/20/2023 1:58 PM AIRLINE SECURITY REPRESENTATIVE COVID-19 Rule Out 11/08/2024 11/08/2024 11/08/2024 12:01 PM AIRLINE SECURITY REPRESENTATIVE Influenza - Seasonal 11/08/2024 11/08/2024 025 12:32 AM AIRLINE SECURITY REPRESENTATIVE documented as of this encounter Care Teams Industrial Eng Relationship Specialty Start Date End Date Guido Pugh MD [address] [place] [address] PCP - General 04/28/17 Naomi Carter, RN [address] [place], [place] [id number] Gate Agent (Ambulatory) REGISTERED NURSE 05/10/1906/20/19 Clara Martin, PharmD [address] [place], [place] [id number] Pharmacist Pharmacist 05/12/19 06/20/19 Negrita Kaminski, RN [address] [address] Gate Agent (Ambulatory) REGISTERED NURSE 03/22/21 Mark Mcfarlane MD [address] [facility] [address] [place], [place] [id number] INTERNAL MEDICINE 07/15/23 Yajaira Keenan, RN [address] [place] [address] Gate Agent (Ambulatory) REGISTERED NURSE 08/21/23 Negrita Kaminski, RN [address] [facility] [address] [place] [address] Registered Nurse CARE MANAGEMENT 01/15/24 02/22/24 Negrita Kaminski, RN [address] [facility] [address] [place] [address] Registered Nurse CARE MANAGEMENT 07/07/24 documented as of this encounter
--- OUTSIDE RECORDS SUMMARY | 2025-04-28 16:57 | XMS_ITS | Encounter Summary ---
Author Organization [facility] Care Team Providers Care Coo & Co Founder Name Role Phone Guido Pugh MD Primary Care Provider [phone] Mark Mcfarlane MD Unavailable [phone] Encounter Details Date Type Department Care Team (Latest Contact Info) Description 02/05/2017 Orders Only [facility] ProviderJohn MD [address] [place] [id number] Social History Tobacco Use Types Packs/Day Years Used Date Smoking Tobacco: Never Assessed Sex and Gender Information Value Date Recorded Sex Assigned at Not on file Legal Sex Male 3:19 PM WEB MERCHANT Gender Identity Not on file Sexual Orientation Not on file documented as of this encounter Plan of Treatment Not on file documented as of this encounter Procedures Procedure Name Priority Date/Time Associated Diagnosis Comments CARDIOLOGY REPORT 02/05/2017 12: 00 AM CDT documented in this encounter Results * CARDIOLOGY REPORT (02/05/2017 12:00 AM CDT) Anatomical Region Laterality Modality Other Narrative 02/05/2017 12:00 AM CDT Ordered by an unspecified provider. Historical Provider [facility] JENISE JONES Final Result documented in this encounter Visit Diagnoses Not on filedocumented in this encounter Additional Health Concerns Infection Onset Date Last Indicated Resolved Time MRSA Comment:h/o staph infecion 04/25/2020 04/24/2020 05/29/2021 5: 00 AM CDT documented as of this encounter Care Teams Coo & Co Founder Relationship Specialty Start Date End Date Guido Pugh MD [address] [place] [address] PCP - General 09/13/17 Mark Mcfarlane MD [address] [facility] [address] Debone Supervisor Cardiology 05/31/19 documented as of this encounter
--- OUTSIDE RECORDS SUMMARY | 2025-04-28 16:58 | XMS_ITS | Encounter Summary ---
Author Organization [facility] Address [address] [place] [address] Care Team Providers Care Fixed Capital Clerk Name Role Phone Guido Pugh MD Primary Care Provider Encounter Details Date Type Department Care Team (Latest Contact Info) Description 10/10/1999 Outpatient Historical [facility] Lumbago (Primary Dx) Social History Tobacco Use Types Packs/Day Years Used Date Smoking Tobacco: Never Assessed Sex and Gender Information Value Date Recorded Sex Assigned at Not on file Legal Sex Male 4:35 AM CONTRACTING MANAGER Gender Identity Not on file Sexual Orientation Not on file documented as of this encounter Plan of Treatment Not on file documented as of this encounter Visit Diagnoses Diagnosis Lumbago- Primary documented in this encounter Care Teams Fixed Capital Clerk Relationship Specialty Start Date End Date Guido Pugh MD [address] [place] [id number] PCP - General Internal Medicine 02/25/22 documented as of this encounter
--- OUTSIDE RECORDS SUMMARY | 2025-04-28 16:58 | XMS_ITS | Encounter Summary ---
Author Organization [facility] Address [facility] [place] [address] Care Team Providers Care Electronics Maintenance Technician Name Role Phone Guido Pugh MD Primary Care Provider [phone] Maeve Hopper MD, Flores Unavailable [phone] Negrita Kaminski RN Unavailable [phone] Reason for Visit * Reason Onset Date Comments Referral 04/28/2025 Encounter Details Date Type Department Care Team (Late st Contact Info) Description 04/28/2025 Telephone [facility] Family [facility] Internal Medicine [facility] [address] [place] [address] Guido Pugh MD [address] [place] [address] Referral Social History Tobacco Use Types Packs/Day Years Used Date Smoking Tobacco: Never Passive Smoke Exposure: Never Smokeless Tobacco: Never Comments:na Alcohol Use Standard Drinks/Week Comments Not Currently 0 (1 standard drink = 0.6 oz pur e alcohol) OASIS D0700: Social Isolation Answer Da te Recorded Frequency of experiencing loneliness or isolatio n Never 08/30/2024 OASIS A1250: Transportation Answer Date Recorded Lack of Transportation (Medical) No 08/30/2024 Lack of Transportation (Non-Medical) No 08/30/2024 Patient Unable or Declines to Respond No 08/30/2024 OASIS B1300: Health Literacy Answer Jelani e Recorded Frequency of needing help to read materials from doctor or pharmacy Never 08/30/2024 [facility] Utilities Answer Date Recorded In the past 12 months has th e electric, gas, oil, or water company threatened to shut off services in your home? No 11/09/2024 Humiliation, Afraid, Rape, and Kick questionnair e Answer Date Recorded Within the last year, have y ou been afraid of your partner or ex-partner? No 11/09/2024 Within the last year, have y ou been humiliated or emotionally abused in other ways by your partner or ex-partner? No Within the last year, have y ou been kicked, hit, slapped, or otherwise physically hurt by your partner or ex-partner? No 11/09/2024 Within the last year, have y ou been raped or forced to have any kind of sexual activity by your partner or ex-partner? No 11/09/2024 AUDIT-C Answer Date Recorded Frequency of Alcohol Consumption Monthly or less 09/13/2018 Average Number of Drinks 1 or 2 018 Frequency of Binge Drinking Not on file 12/2017 Overall Financial Resource Strain (CARDIA) Answe r Date Recorded How hard is it for you to pa y for the very basics like food, housing, medical care, and heating? Not hard at all 11/09/2024 PHQ-2 Answer Date Recorded Patient Health Questionnaire-2 Score 6 03/21/2025 Hunger Vital Sign Answer Date Recorded Within the past 12 months, y ou worried that your food would run out before you got the money to buy more. Never true 11/09/19 25 Within the past 12 months, t he food you bought just didn't last and you didn't have money to get more. Never true 11/09/2024 PRAPARE - Transportation Answer Date Re corded In the past 12 months, has l ack of transportation kept you from medical appointments or from getting medications? No 10/13 In the past 12 months, has l ack of transportation kept you from meetings, work, or from getting things needed for daily living? No 11/09/2024 Housing Stability Vital Sign Answer Jelani e Recorded In the last 12 months, was t here a time when you were not able to pay the mortgage or rent on time? No 01/14/2024 In the last 12 months, how many places have you lived? 1 01/14/2024 In the last 12 months, was t here a time when you did not have a steady place to sleep or slept in a chcf (including now)? No 01/14/2024 Housing Stability Vital Sign Answer Jelani e Recorded In the last 12 months, was t here a time when you were not able to pay the mortgage or rent on time? No 11/09/2024 In the past 12 months, how m any times have you moved where you were living? 1 11/09/2024 At any time in the past 12 m [facility], were you homeless or living in a chcf (including now)? No 11/09/2024 Sex and Gender Information Value Date Recorded Sex Assigned at Male 09/13/2018 11:29 AM ACCOUNT SERVICES COORDINATOR Legal Sex Male 5:07 PM CDT Gender Identity Male 09/13/2018 11:29 AM ACCOUNT SERVICES COORDINATOR Sexual Orientation Straight 09/13/2018 11 :29 AM ACCOUNT SERVICES COORDINATOR documented as of this encounter Functional Status * Are you deaf or do you have serious difficulty hearing Answer Date of Assessment Author Status No 11/09/2024 8:00 AM Doris Munoz RN Active * Are you blind or do you have serious difficulty seeing, even when wearing glasses? Answer Date of Assessment Author Status No 11/09/2024 8:00 AM Doris Munoz RN Active * Do you have serious difficulty walking or climbing stairs? Answer Date of Assessment Author Status Yes 11/09/2024 8:00 AM Doris Munoz RN Active * Do you have difficulty dressing or bathing? Answer Date of Assessment Author Status No 11/09/2024 8:00 AM Doris Munoz RN Active * Because of a physical, mental, or emotional condition, do you have difficulty doing errands alone such as visiting a doctor's office or shopping? Answer Date of Assessment Author Status Yes 11/09/2024 8:00 AM Doris Munoz RN Active documented as of this encounter Mental Status * Because of a physical, mental, or emotional condition, do you have serious difficulty concentrating, remembering, or making decisions? Answer Entry Date Author Status No 11/09/2024 8:00 AM Doris Munoz RN Active documented in this encounter Progress Notes * Ruthann Parsons - 04/28/2025 1:43 PM CDT [id number] Service Code Szo3 Level 3 Eval Diagnostic Treatment but needs to read PT documented in this encounter Plan of Treatment Upcoming Encounters Date Type Department Care Team (Late st Contact Info) Description 05/25/2025 1:00 PM CDT Office Visit [facility] Family & Internal Medicine [address] [id number] [place] [address] Guido Pugh MD [address] [place] [address] documented as of this encounter Goals Goal Patient Goal Type Associated Problems Recent Progress Patient-Stated? Author Establish Plan for Symptom Monitoring CHF Lifestyle On track(04/06 2:41 PM CDT) No Yajaira Keenan, RN Note: CHF: Patient will recognize symptoms of CHF and report to provider. Daily weight. Report weight gain of > 3 lbs overnight or > 5 lbs in a week Call physician if you experience worsening shortness of breath, edema, fatigue, or cough Take medications as prescribed. Follow up with physician appointments as scheduled. Don't stop taking any of your medications or start taking any medications without discussing with your provider. 07/08/24 see note/status section moving forward for progress towards goal completion Health - patient able to perform ADLs independently Lifestyle No Alexandra Hilario, FOREST PATHOLOGY TEACHER Monitor - able to maintain pain control Lifestyle On track(01/27 1:38 PM CDT) No Negrita Kaminski RN Establish Plan for Symptom Monitoring for afib aeb the below Lifestyle On track(04/06 2:41 PM CDT) No Negrita Kaminski RN Note: .1) Patient will be knowledgeable in s/s of Afib to report to her provider including:dizziness, chest pain, sob, weakness, palpitations, lightheadedness, and fatigue 2) patient will take all medications consistently as prescribed 3) patient will follow up with physician as scheduled 07/08/24 see note/status section moving forward for progress towards goal completio Monitor - able to maintain pain control Lifestyle On track(04/06 2:41 PM CDT) Negrita Steele RN Note: .1) knowledge in nonmedicinal pain relieving measures including: rest, repositioning, massage, cold/heat therapy 20min on/20min off with use of skin barrier, and diversion 2) participate in therapy as directed 3) taking medications as prescribed by physician 07/08/24 see note/status section moving forward for progress towards goal completio Therapy to increase mobility Care Plan [facility] OUTPATIENT PROBLEM No Naomi Carter RN Establish Regular Follow-Ups with PCP Care Plan [facility] OUTPATIENT PROBLEM No Naomi Carter RN Consistently taking medication as prescribed Care Plan removal of hardware and instrumentation from [id number]-egladk, 05/06 L2-3 laminectomy, L1 chevron osteotomy, L1-2 TLIF, and IPSF from [id number]-cnabhi 05/06 Naomi Reeder RN Establish Regular Follow-Ups with PCP Care Plan removal of hardware and instrumentation from [id number], 05/06 L2-3 laminectomy, L1 chevron osteotomy, L1-2 TLIF, and IPSF from [id number]-[id number] 05/06 Naomi Reeder RN documented as of this encounter Visit Diagnoses Not on filedocumented in this encounter Additional Health Concerns Active Problems Noted Date Diagnosed Date [facility] OUTPATIENT PROBLEM 05/16/2019 removal of hardware and inst rumentation from [id number]-[id number], 05/06 L2-3 laminectomy, L1 chevron osteotomy, L1-2 TLIF, and IPSF from F77-allner 05/0605/23/2019 Assessment Noted Time PHQ-9 Depression Total Score: 26 025 2:22 PM CDT documented as of this encounter Care Teams Electronics Maintenance Technician Relationship Specialty Start Date End Date Guido Pugh MD [address] [place] [address] PCP - General 04/28/17 Mark Mcfarlane MD [address] [place] [address] [address] INTERNAL MEDICINE 07/15/23 Negrita Kaminski, RN [address] [facility] [address] [place] [address] Registered Nurse CARE MANAGEMENT 07/07/24 documented as of this encounter
--- OUTSIDE RECORDS SUMMARY | 2025-04-28 16:58 | XMS_ITS | Encounter Summary ---
Author Organization [facility] Address [address] [place] [address] Care Team Providers Care Concrete Worker Name Role Phone Guido Pugh MD Primary Care Provider [phone] Encounter Details Date Type Department Care Team (Late st Contact Info) Description 10/14/2007 Outpatient Historical [facility] Federico Martinez MD NO ADDRESS ON FILE Social History Tobacco Use Types Packs/Day Years Used Date Smoking Tobacco: Never Assessed Sex and Gender Information Value Date Recorded Sex Assigned at Not on file Legal Sex Male 4:35 AM POKER MANAGER Gender Identity Not on file Sexual Orientation Not on file documented as of this encounter Plan of Treatment Not on file documented as of this encounter Visit Diagnoses Not on filedocumented in this encounter Care Teams Concrete Worker Relationship Specialty Start Date End Date Guido Pugh MD [address] [place] [address] PCP - General Internal Medicine 02/25/22 documented as of this encounter
--- OUTSIDE RECORDS SUMMARY | 2025-04-28 16:58 | XMS_ITS | Encounter Summary ---
Author Organization [facility] Address [address] [place] [address] Care Team Providers Care Entry Level Staff Accountant Name Role Phone Guido Pugh MD Primary Care Provider [phone] Encounter Details Date Type Department Care Team (Latest Contact Info) Description 07/17/1999 Outpatient Historical [facility] Izaiah Faith MD [address] [place] [address] Lumbago (Primary Dx) Social History Tobacco Use Types Packs/Day Years Used Date Smoking Tobacco: Never Assessed Sex and Gender Information Value Date Recorded Sex Assigned at Not on file Legal Sex Male 4:35 AM SAUSAGE LINKER Gender Identity Not on file Sexual Orientation Not on file documented as of this encounter Plan of Treatment Not on file documented as of this encounter Visit Diagnoses Diagnosis Lumbago- Primary documented in this encounter Care Teams Entry Level Staff Accountant Relationship Specialty Start Date End Date Guido Pguh MD [address] [place] [address] PCP - General Internal Medicine 02/25/22 documented as of this encounter
--- OUTSIDE RECORDS SUMMARY | 2025-04-28 16:58 | XMS_ITS | Encounter Summary ---
Author Organization [facility] Address [address] [place] [address] Care Team Providers Care Brush Painter Name Role Phone Guido Pugh MD Primary Care Provider [phone] Encounter Details Date Type Department Care Team (Latest Contact Info) Description 07/24/2005 Outpatient Historical [facility] Izaiah Delacruz MD NO ADDRESS ON FILE ARTHRODESIS STATUS (Primary Dx) Social History Tobacco Use Types Packs/Day Years Used Date Smoking Tobacco: Never Assessed Sex and Gender Information Value Date Recorded Sex Assigned at Not on file Legal Sex Male 4:35 AM HAMMER MILL OPERATOR Gender Identity Not on file Sexual Orientation Not on file documented as of this encounter Plan of Treatment Not on file documented as of this encounter Visit Diagnoses Diagnosis Arthrodesis status- Primary documented in this encounter Care Teams Brush Painter Relationship Specialty Start Date End Date Guido Pugh MD [address] [place] [address] PCP - General Internal Medicine 02/25/22 documented as of this encounter
--- OUTSIDE RECORDS SUMMARY | 2025-04-28 16:58 | XMS_ITS | Encounter Summary ---
Author Organization [facility] Care Team Providers Care Poker In Name Role Phone Guido Pugh MD Primary Care Provider [phone] Mark Mcfarlane MD Unavailable [phone] Encounter Details Date Type Department Care Team (Latest Contact Info) Description 01/21/2018 Orders Only [facility] CLINCON[facility] ProviderJohn MD [address] [place] [address] Social History Tobacco Use Types Packs/Day Years Used Date Smoking Tobacco: Never Assessed Sex and Gender Information Value Date Recorded Sex Assigned at Not on file Legal Sex Male 3:19 PM BUTTERMILK DRIER OPERATOR Gender Identity Not on file Sexual Orientation Not on file documented as of this encounter Plan of Treatment Not on file documented as of this encounter Procedures Procedure Name Priority Date/Time Associated Diagnosis Comments SCAN - LABS 04/26/2018 12:00 AM CDT documented in this encounter Results * SCAN - LABS (04/26/2018 12:00 AM CDT) Narrative 04/26/2018 12:00 AM CDT Ordered by an unspecified provider. us Historical Provider Final Res ult documented in this encounter Visit Diagnoses Not on filedocumented in this encounter Additional Health Concerns Infection Onset Date Last Indicated Resolved Time MRSA Comment:h/o staph infecion 04/25/2020 04/24/2020 05/29/2021 5: 00 AM CDT documented as of this encounter Care Teams Poker In Relationship Specialty Start Date End Date Guido Pugh MD [address] [place] [address] PCP - General 09/13/17 Mark Mcfarlane MD [address] [place] [address] Hay Sorter Cardiology 05/31/19 documented as of this encounter
--- OUTSIDE RECORDS SUMMARY | 2025-04-28 16:58 | XMS_ITS | Encounter Summary ---
Author Organization [facility] Address [address] [place] [address] Care Team Providers Care Ingredient Handler Name Role Phone Guido Pugh MD Primary Care Provider [phone] Maeve Hopper MD, Flores Unavailable [phone] Negrita Kaminski RN Unavailable [phone] Encounter Details Date Type Department Care Team (Latest Contact Info) Description 04/19/2025 Scan HEALTH INFO SRVCS Scanned, [facility] Social History Tobacco Use Types Packs/Day Years [...] materials from doctor or pharmacy Never 08/30/2024 [facility] Utilities Answer Date Recorded In the [...] slept in a half-way (including now)? No 01/14/2024 Housing Stability Vital Sign Answer Jelani e Recorded In the last 12 months, was t here a time when you were not able to pay the mortgage or rent on time? No 11/09/2024 In the past 12 months, how m any times have you moved where you were living? 1 11/09/2024 At any time in the past 12 m [facility], were you homeless or living in a half-way (including now)? No 11/09/2024 Sex and Gender Information Value Date Recorded Sex Assigned at Male 09/13/2018 11:29 AM ELECTRICIAN MANAGER Legal Sex Male 5:07 PM CDT Gender Identity Male 09/13/2018 11:29 AM ELECTRICIAN MANAGER Sexual Orientation Straight 09/13/2018 11 :29 AM ELECTRICIAN MANAGER documented as of this encounter Functional Status [...] Munoz RN Active documented in this encounter Plan of Treatment Upcoming Encounters Date Type Department Care Team (Late st Contact Info) Description 05/25/2025 1:00 PM CDT Office Visit [facility] Family & Internal Medicine [address] [address] Guido Pugh MD [address] [place] [address] documented as of this encounter Goals Goal Patient Goal Type Associated Problems Recent Progress Patient-Stated? Author Establish Plan for Symptom Monitoring CHF Lifestyle On track(04/06 2:41 PM CDT) No Yajaira Keenan RN Note: CHF: Patient will recognize symptoms [...] perform ADLs independently Lifestyle No Alexandra Hilario, REAL ESTATE ASSOCIATE Monitor - able to maintain pain control [...] control Lifestyle On track(04/06 2:41 PM CDT) No Negrita Kaminski RN Note: .1) knowledge in nonmedicinal pain relieving measures including: rest, repositioning, massage, cold/heat therapy 20min on/20min off with use of skin barrier, and diversion 2) participate in therapy as directed 3) taking medications as prescribed by physician 07/08/24 see note/status section moving forward for progress towards goal completio Therapy to increase mobility Care Plan [facility] OUTPATIENT PROBLEM No Naomi Carter RN Establish Regular Follow-Ups with PCP Care Plan [facility] OUTPATIENT PROBLEM No Naomi Carter RN Consistently taking medication as prescribed Care Plan removal of hardware and instrumentation from [id number]-[id number], 05/06 L2-3 laminectomy, L1 chevron osteotomy, L1-2 TLIF, and IPSF from [id number] 05/06 No Naomi Carter RN Establish Regular Follow-Ups with PCP Care Plan removal of hardware and instrumentation from [id number], 05/06 L2-3 laminectomy, L1 chevron osteotomy, L1-2 TLIF, and IPSF from [id number] 05/06 No Naomi Carter RN documented as of this encounter Visit Diagnoses Not on filedocumented in this encounter Additional Health Concerns Active Problems Noted Date Diagnosed Date [facility] OUTPATIENT PROBLEM 05/16/2019 removal of hardware and inst rumentation from [id number], 05/06 L2-3 laminectomy, L1 chevron osteotomy, L1-2 TLIF, and IPSF from [id number]-[id number] 05/0605/23/2019 Assessment Noted Time PHQ-9 Depression Total Score: 025 2:22 PM CDT documented as of this encounter Care Teams Ingredient Handler Relationship Specialty Start Date End Date Guido Pugh MD [address] [place] [address] PCP - General 04/28/17 Mark Mcfarlane MD [address] [place] [address] INTERNAL MEDICINE 07/15/23 Negrita Kaminski, RN [address] [facility] [address] [place] [address] Registered Nurse CARE MANAGEMENT 07/07/24 documented as of this encounter
--- OUTSIDE RECORDS SUMMARY | 2025-04-28 16:58 | XMS_ITS | Encounter Summary ---
Author Organization [facility] Care Team Providers Care Family Law Paralegal Name Role Phone Guido Pugh MD Primary Care Provider [phone] Mark Mcfarlane MD Unavailable [phone] Encounter Details Date Type Department Care Team (Latest Contact Info) Description 12/23/2017 Orders Only [facility] CLINCON[facility] ProviderJohn MD [address] [place] [address] Social History Tobacco Use Types Packs/Day Years Used Date Smoking Tobacco: Never Assessed Sex and Gender Information Value Date Recorded Sex Assigned at Not on file Legal Sex Male 3:19 PM INSTRUCTOR OF SOCIOLOGY Gender Identity Not on file Sexual Orientation Not on file documented as of this encounter Plan of Treatment Not on file documented as of this encounter Procedures Procedure Name Priority Date/Time Associated Diagnosis Comments SCAN - LABS 04/27/2018 12:00 AM CDT documented in this encounter Results * SCAN - LABS (04/27/2018 12:00 AM CDT) Narrative 04/27/2018 12:00 AM CDT Ordered by an unspecified provider. us Historical Provider Final Res ult documented in this encounter Visit Diagnoses Not on filedocumented in this encounter Additional Health Concerns Infection Onset Date Last Indicated Resolved Time MRSA Comment:h/o staph infecion 04/25/2020 04/24/2020 05/29/2021 5: 00 AM CDT documented as of this encounter Care Teams Family Law Paralegal Relationship Specialty Start Date End Date Guido Pugh MD [address] [place] [address] PCP - General 09/13/17 Mark Mcfarlane MD [address] [place] [address] Marine Fuel Dock Attendant Cardiology 05/31/19 documented as of this encounter
--- OUTSIDE RECORDS SUMMARY | 2025-04-28 16:58 | XMS_ITS | Encounter Summary ---
Author Organization [facility] Address [address] [place] [address] Care Team Providers Care Armhole Sewer Name Role Phone Guido Pugh MD Primary Care Provider [phone] Encounter Details Date Type Department Care Team (Latest Contact Info) Description 03/25/2007 Outpatient Historical [facility] Federico Martinez MD NO ADDRESS ON FILE Pain in Joint, Pelvic Region and Thigh (Primary Dx) Social History Tobacco Use Types Packs/Day Years Used Date Smoking Tobacco: Never Assessed Sex and Gender Information Value Date Recorded Sex Assigned at Not on file Legal Sex Male 4:35 AM CHIEF MEDICAL DIRECTOR Gender Identity Not on file Sexual Orientation Not on file documented as of this encounter Plan of Treatment Not on file documented as of this encounter Visit Diagnoses Diagnosis Pain in joint, pelvic region and thigh- Primary documented in this encounter Care Teams Armhole Sewer Relationship Specialty Start Date End Date Guido Pugh MD [address] [place] [address] PCP - General Internal Medicine 02/25/22 documented as of this encounter
--- OUTSIDE RECORDS SUMMARY | 2025-04-28 16:58 | XMS_ITS | Clinical Summary ---
Author Organization [facility] Address [address] [place] [address] Care Team Providers Care Hearing Dog Trainer Name Role Phone Guido Pugh MD Primary Care Provider [phone] Maeve Hopper MD, Flores Unavailable [phone] Negrita Kaminski RN Unavailable [phone] Allergies Active Allergy Reactions Criticality Noted Date Comments Ketamine Unknown High 01/02/2017 Other reaction(s): Other (See Comments) Hallucinations.Verbalizes had a bad experience with Ketamine it and refuses to take it. Other reaction(s): Hallucinating Medications pravastatin 40 MG tabletIndicati ons:Hyperlipid emia Take 1 tablet (40 mg total) by mouth daily. Indications: High Amount of Fats in the Blood Active metoprolol tartrate (LOPRESSOR) 100 MG tabletIndicati ons:Hypertensi on Take 1 tablet (100 mg total) by mouth 2 (two) times daily. Indications: High Blood Pressure 10/29/19 23 Active furosemide (LASIX) 40 MG tabletIndicati ons:Diuresis Take 1 tablet (40 mg total) by mouth every other day. 30 tablet 01/22/20 24 Active menthol-methyl salicylate (MUSCLE RUB) 10-15 % CreamIndicatio ns:Pain Apply topically 3 (three) times daily as needed. 35 g 01/22/20 24 Active Additional Information Patient taking differently:Topical 3 times daily PRN,pain, Indications: Pain, Reported on 04/24/2025 polyethylene glycol (GLYCOLAX) packetIndicati ons:Constipati on Take 240 mLs (17 g total) by mouth daily as needed for Constipation. Dissolve powder in 240 mL water 14 each 01/22/20 24 Active celecoxib (CELEBREX) 100 MG capsule Take 1 capsule (100 mg total) by mouth 2 (two) times daily as needed for Pain. 07/15/20 24 Active oxyCODONE immediate release (ROXICODONE) 10 MG immediate release tabletIndicati ons:Chronic Pain Take 1 tablet (10 mg total) by mouth every 6 (six) hours as needed. Indications: Chronic Pain 45 tablet 08/18/20 24 Active Additional Information Patient taking differently:10 mg Oral Every 6 hours PRN,Pain, Indications: Chronic Pain, Reported on 04/24/2025 montelukast (SINGULAIR) 10 MG tabletIndicati ons:Chronic cough TAKE 1 TABLET BY MOUTH EVERY DAY 90 tablet 3 09/26/20 24 Active albuterol sulfate HFA 108 (90 Base) MCG/ACT inhalerIndicat ions:Shortness of breath Inhale 2 puffs into the lungs every 6 (six) hours as needed for Wheezing or Shortness of breath. Indications: Shortness of breath 6.7 g 3 11/14/19 25 Active tamsulosin (FLOMAX) 0.4 MG Cap Take 1 capsule (0.4 mg total) by mouth daily. Active pantoprazole EC (PROTONIX) 40 MG tabletIndicati ons:Acid Indigestion TAKE 1 TABLET BY MOUTH EVERY DAY 90 tablet 12/21/19 25 Active Pregabalin 300 MG CapIndications :Nerve Pain Take 300 mg by mouth 2 (two) times daily. Indications: Nerve Pain 60 capsule 3 12/29/19 25 Active oxybutynin XL (DITROPAN-XL) 10 MG 24 hr tabletIndicati ons:Urinary Retention TAKE 2 TABLETS BY MOUTH EVERY DAY 90 tablet 01/04/20 25 Active Eszopiclone 3 MG TabIndications :Primary insomnia TAKE 1 TABLET BY MOUTH IMMEDIATELY BEFORE BEDTIME 30 tablet 1 03/10/20 25 Active aspirin EC 81 MG tablet Take 1 tablet (81 mg total) by mouth daily. Active clopidogrel (PLAVIX) 75 MG tablet Take 1 tablet (75 mg total) by mouth daily. 03/09/20 25 025 Active finasteride (PROSCAR) 5 MG tablet Take 1 tablet (5 mg total) by mouth daily. 03/14/20 25 Active LORazepam (ATIVAN) 1 MG tabletIndicati ons:Chronic neck pain Take 30-60 minutes prior to procedure 1 tablet 03/23/20 25 Active DULoxetine (CYMBALTA) 60 MG capsuleIndicat ions:Depressio n TAKE 1 CAPSULE BY MOUTH EVERY DAY 90 capsule 04/03/20 25 Active ipratropium (ATROVENT) 0.06 % nasal sprayIndicatio ns:Cough 2 SPRAYS BY NASAL ROUTE 4 (FOUR) TIMES DAILY. INDICATIONS: COUGH 15 mL 04/05/20 25 Active mirabegron ER (MYRBETRIQ) 25 MG 24 hr tablet Take 1 tablet (25 mg total) by mouth daily. 04/04/20 25 Active CPAP SUPPLIESIndica tions:Obstruct carlotta sleep apnea syndrome 1 each by Does not apply route nightly at bedtime. Chinstrap 1 Device 5 04/19/20 25 Active buPROPion XL (WELLBUTRIN XL) 300 MG 24 hr tabletIndicati ons:Severe episode of recurrent major depressive disorder, without psychotic features (CMS/HCC HHS/HCC) Take 1 tablet (300 mg total) by mouth daily. 30 tablet 2 04/24/20 25 Active tirzepatide-we ight management (ZEPBOUND) 2.5 mg/0.5 mL injectionIndic ations:Weight Loss Inject 2.5 mg into the skin every 7 days. Indications: Weight Loss 2 mL 04/25/20 25 Active docusate sodium (COLACE) 100 MG capsule Take 1 capsule (100 mg total) by mouth daily. 10 capsule 01/23/20 24 025 Discontinued(T herapy completed) ipratropium (ATROVENT) 0.06 % nasal sprayIndicatio ns:Cough 2 sprays by Nasal route 4 (four) times daily. Indications: Cough 15 mL 3 08/18/20 24 025 Discontinued DULoxetine (CYMBALTA) 60 MG capsuleIndicat ions:Depressio n TAKE 1 CAPSULE BY MOUTH EVERY DAY 90 capsule 1 09/26/20 24 025 Discontinued buPROPion XL (WELLBUTRIN XL) 150 MG 24 hr tabletIndicati ons:Severe episode of recurrent major depressive disorder, without psychotic features (CMS/HCC HHS/[facility]) Take 1 tablet (150 mg total) by mouth daily. 30 tablet 1 03/21/20 25 025 Discontinued(R eorder) amoxicillin-cl avulanate (AUGMENTIN) 875-125 MG tablet Take 1 tablet (875 mg total) by mouth 2 (two) times daily. 03/28/20 25 025 Discontinued(T herapy completed) tirzepatide (ZEPBOUND) 2.5 MG/0.5ML injectionIndic ations:Weight Loss Inject 2.5 mg into the skin once a week. Indications: Weight Loss 2 mL 04/24/20 25 025 Discontinued(F ormulary change) Active Problems Problem Noted Date Diagnosed Date Presence of Watchman left atrial appendage closu re device 03/26/2025 Care Management 07/07/2024 Closed fracture of eighth th oracic vertebra ([facility]) 01/25/2024 Overview (02/23/2024): Last Assessment & Plan: Continue fu with NSY outpt & TLSO. Pain control. PT/OT. Closed fracture of left distal humerus 4 Overview (02/23/2024): Last Assessment & Plan: Nonop management in brace. Had ortho fu 01/26 - advanced to WB, continue splint. Intractable pain 01/14/2024 Uncontrolled pain 01/14/2024 CHF (congestive heart failure) ([facility]) 08/20/2023 Current use of technician terminal and repeater anticoagulation 023 Overview (03/23/2023): Last Assessment & Plan: Tolerating the anticoagulation. No history of any clinical bleeding Status post bilateral hip replacements 3 Assessment & Plan (11/24/2022 12:07 PM RESIDENCE LEASING AGENT): We will get him set up for a Sed Rate, erthrocyte and CBC to rule out infection. We will also get him set up for a 3-phase bone scan to rule out loosening. Morbid (severe) obesity due to excess calories 0 11/20/2022 Moderate mitral regurgitation 08/20/2022 Chronic bronchitis ([facility]) 11/18/2021 Other closed fracture of pro ximal end of left ulna, initial encounter 09/17/2020 Heterotopic ossification 09/17/2020 Anemia determined by examination 04/25/2020 Major depressive disorder, recurrent episode, mo derate 10/13/2019 Disorder of adrenal gland ([facility]) 10/13/2019 Other specified polyneuropathies 10/13/2019 Spinal stenosis of lumbar region 05/11/2019 Sagittal plane imbalance 08/17/2018 Aortic valve sclerosis 07/05/2018 Left atrial dilation 07/05/2018 Mild aortic regurgitation 07/05/2018 Elevated bilirubin 01/06/2018 Loss of taste 12/29/2017 Obstructive sleep apnea syndrome 08/20/2017 Insomnia 06/30/2017 Cervical cord myelomalacia ([facility]) 10/2016 Hemangioma of spine 02/17/2017 Osteoarthritis of spine with radiculopathy, lumb ar region 02/17/2017 S/P bilateral cataract extraction 01/09/2017 Vertigo 12/18/2016 Chronic low back pain without sciatica 7 Benign essential hypertension 07/10/2016 Status post placement of implantable loop record er 03/23/2016 Nuclear nonsenile cataract 03/21/2016 Arteriosclerosis of coronary artery 11/05/2015 Hyperlipidemia 11/05/2015 Numbness of left hand 11/05/2015 Osteoarthritis, hip, bilateral 11/05/2015 Persistent atrial fibrillation ([facility]) 11/05/2015 Overview (09/21/2018): Overview: Overview: Persistent a fib, S/P PVI, posterior LA wall box lesion lines set,mitral isthmus ablation,LA floor roof and intra CS ablation On 10-10-14 Osteoarthritis of shoulder 11/05/2015 S/P reverse total shoulder arthroplasty, left Rotator cuff arthropathy 02/20/2015 Rotator cuff (capsule) sprain 08/30/2014 Overview (09/21/2018): Overview: Overview: Had total left shoulder replacement 2 weeks ago Cardiomyopathy ([facility]) 07/26/2014 Erectile dysfunction 07/26/2014 DJD (degenerative joint disease) 07/26/2014 Resolved Problems Problem Noted Date Diagnosed Date Resolved Date Influenza A 11/11/2024 03/26/2025 Acute respiratory failure wi th hypoxia ([facility]) 11/08/2024 03/26/2025 COPD (chronic obstructive pu lmonary disease) ([facility]) 10/13/2019 03/23/2023 BMI 31.0-31.9,adult 06/15/2019 08/20/20 Severe obesity with body mas s index (BMI) of 35.0 to 35.9 and comorbidity 06/15/2019 11/20/2022 Hip joint instability, left 02/23/2018 03/23/2023 Incontinence of feces 11/12/20172020 Inguinal hernia 09/23/2017 03/23/2023 Obstructive sleep apnea syndrome 08/20/2017 04/24/2021 Abscess of chest wall 05/01/20172020 Arthrodesis status 02/17/2017 Hypokalemia 11/05/2016 04/24/2021 Screening for endocrine disorder 05/05/2016 06/22/2020 Wears glasses 11/05/2015 06/22/2020 Encounters Date Type Department Care Team Description 04/28/2025 Telephone [facility] Family & Internal [address] [phone] Guido Pugh MD Referral 04/25/2025 Telephone [facility] Family Internal [address] [phone] Guido Pugh MD Referral Request (Cardiology - Dr. Mcfarlane) 04/24/2025 1:00 PM CDT Office Visit [facility] [address] [phone] Guido Pugh MD Depression 04/24/2025 Travel 04/19/2025 Scan [facility] INFO SRVCS Scanned, [facility] 04/19/[address] [phone] Guido Pugh MD Orders 04/04/2025 Scan [facility] INFO SRVCS Scanned, [facility] 03/30/2025 Patient Outreach [address] [phone] Negrita Kaminski RN Care Management ([facility] 03/30) 03/28/2025 Scan [facility] INFO SRVCS Scanned, [facility] 03/24/2025 Scan [facility] INFO SRVCS Scanned, [facility] 03/24/[address] [phone] Guido Pugh MD Prior Authorization (Lorazepam (GoodRx) ) 03/23/[address] [phone] Guido Pugh MD Other 03/21/2025 1:00 PM CDT Office Visit [address] [phone] Guido Pugh MD TCM (Patient was admitted to [facility] 03/09-03/10 for watchman procedure); Cough (Patient c/o continued cough); Depression (Patient's spouse would like patient to be evaluated for depression. ); Throat Problem (Patient states he feels like something is in his throat and causes food/pills to get stuck in his throat starting the last few months ago. ) 03/21/[address] [phone] Guido Pugh MD Orders (MRI and Lorazepam orders) 03/21/2025 Travel 03/10/2025 Patient Outreach [address] [phone] Negrita Kaminski, RN TCM ([facility] 03/09 (less than 24H)) 03/09/2025 Scan [employer] INFO SRVCS Scanned, Doc [facility] 03/03/2025 Patient Outreach [facility] Medicine [address] [phone] Negrita Kaminski, RN Care Management (CCM: LVM 03/03) 01/27/2025 Patient Outreach [facility] [address] [phone] Negrita Kaminski, RN Care Management (CCM) from Last 3 Months Immunizations Immunization Administration Dates Next Due Fluzone High Dose - >Age 65 (Prefilled Syringe) 10/03/2021,07/23/2020 Influenza (Generic) 08/29/2021, 8,08/12/2015,2013,08/12/2013 Influenza Adult (Generic) 07/27/2023(Def erred: Patient Refused),07/10/2019,09/08/2018,08/21/20 17 SUSAN (Echo360) COVID-19 AD26 VACCINE 0.5 ML IM SUSP 05/31/2021 Pneumococcal (Prevnar 13) 05/31/2015 Tdap (Generic) 07/12/2012 Zoster (Zostavax) 78654 Unt/0.65Ml 12/25/2010 Family History Medical History Relation Comments Cancer Father CARDIO MYOPATHY Mother Relation Status Comments Father Maternal Grandfather Maternal Grandmother Mother Paternal Grandfather Paternal Grandmother Social History Tobacco Use Types Packs/Day Years Used Date Smoking Tobacco: Never Passive Smoke Exposure: Never Smokeless Tobacco: Never Tobacco Cessation:Counseling Given: Not Answered Comments:na Alcohol Use Standard Drinks/Week Comments Not [...] materials from doctor or pharmacy Never 08/30/2024 [facility] Utilities Answer Date Recorded In the past 12 months has th e [employer], gas, oil, or water company threatened to [...] place to sleep or slept in a nursing home (including now)? No 01/14/2024 Housing Stability Vital Sign Answer Jelani e Recorded In the last 12 months, was t here a time when you were not able to pay the mortgage or rent on time? No 11/09/2024 In the past 12 months, how m any times have you moved where you were living? 1 11/09/2024 At any time in the past [address] [facility], were you homeless or living in a nursing home (including now)? No 11/09/2024 Sex and Gender Information Value Date Recorded Sex Assigned at Male 09/13/2018 11:29 AM RESIDENCE LEASING AGENT Legal Sex Male 5:07 PM CDT Gender Identity Male 09/13/2018 11:29 AM RESIDENCE LEASING AGENT Sexual Orientation Straight 09/13/2018 11 :29 AM RESIDENCE LEASING AGENT Last Filed Vital Signs Vital Sign Reading Time Taken Comments Blood Pressure 136/82 04/24/2025 1:09 PM CDT Pulse 52 04/24/2025 1:09 PM CDT Temperature 36.6 C (97.9 F) 04/24/2025 1:09 PM CDT Respiratory Rate 16 04/24/2025 1:09 PM CDT Oxygen Saturation 96% 04/24/2025 1:09 PM CDT Inhaled Oxygen Concentration - - Weight 125.1 kg (275 lb 12.8 oz) 04/24/2025 1:09 PM CDT Height 175.3 cm (5' 9) 04/24/2025 1:09 PM CDT Body Mass Index 40.73 04/24/2025 1:09 PM CDT Plan of Treatment Upcoming Encounters Date Type Department Care Team (Late st Contact Info) Description 05/25/2025 1:00 PM CDT Office Visit [facility] Family & Internal Medicine - [address] [phone] Guido Pugh MD [address] [place] [id number] Health Maintenance Due Date Last Done Comments ASCVD Statin 1950 Hepatitis C 1968 Annual Medicare Wellness Visit 2013 Pneumococcal Vaccine: 50+ Years (2 of 2 - PPSV23) 07/26/2015 05/31/2015 ASCVD LDL 06/05/2024 06/05/2023, 04/11, 07/25/2020, Additional history exists COVID-19 Vaccine (2 - season) 2025 05/31/2021 Postponed from 06/12/2024 (Patient Refused) DTaP, Tdap and Td Vaccines (2 - Td or Tdap) 08/18/2025 07/12/2012 Postponed from 07/12/2022 (Patient Refused) RSV Immunization or 60+ Years (1 - 1-dose 75+ series) 08/18/2025 Postponed from 2023 (Going to Outside Clinic) Zoster Vaccines (2 of 3) 08/18/2025 12/25/2010 Pos tponed from 02/19/2011 (Going to Outside Clinic) Colorectal Cancer Screening Colonoscopy (10 Years) Discontinued 01/25/2018, 01/25/2018 PHQ-2 (Physician Mackay) Completed 03/21/2025 Meningococcal B Vaccine Aged Out No l onger eligible based on patient's age to complete this topic Meningococcal Vaccine Aged Out No jcarlos main eligible based on patient's age to complete this topic RSV Immunizations Under 20 Months Aged Out No longer eligible based on [...] perform ADLs independently Lifestyle No Alexandra Hilario, CHILD NUTRITION ASSISTANT Monitor - able to maintain pain control [...] completio Therapy to increase mobility Care Plan [facility] HP OUTPATIENT PROBLEM No Naomi Carter RN Establish Regular Follow-Ups with PCP Care Plan [facility] HP OUTPATIENT PROBLEM No Naomi Carter RN Consistently taking medication as prescribed Care Plan removal of hardware and instrumentation from [id number], 05/06 L2-3 laminectomy, L1 chevron osteotomy, L1-2 TLIF, and IPSF from [id number] 05/06 No Naomi Carter RN Establish Regular Follow-Ups with PCP Care Plan removal of hardware and instrumentation from [id number], 05/06 L2-3 laminectomy, L1 chevron osteotomy, L1-2 TLIF, and IPSF from [id number] 05/06 No Naomi Carter RN Procedures Procedure Name Priority Date/Time Associated Diagnosis Comments LIPID PANEL Routine 06/05/2023 10:39 AM CDT Arteriosclerosis of coronary artery Benign essential hypertension Mixed hyperlipidemia COLONOSCOPY Routine 01/25/2018 12:00 AM CDT from Last 3 Months or Most Recently Relevant to Health Maintenance Results * LIPID PANEL (06/05/2023 10:39 AM CDT) CHOLESTEROL 122 <200 MG/DL 06/05/2023 7:56 PM CDT [facility] TRIGLYCERIDES 74 <150 MG/DL 06/05/2023 7:56 PM CDT [facility] HDL 42 >40 MG/DL 06/05/2023 7:56 PM CDT [facility] LDL-C 65 <100 MG/DL 06/05/2023 7:56 PM CDT [facility] VLDL CALCULATION 15 5 - 28 MG/DL 06/05/2023 7:56 PM CDT [facility] CHOL/HDL RATIO 2.9 0.0 - 4.0 06/05/2023 7:56 PM CDT [facility] LDL/HDL 1.5 0.41 - 2.13 06/05/2023 7:56 PM CDT [facility] NON HDL CHOLESTEROL 80 <140 MG/DL 06/05/2023 7:56 PM CDT [facility] 06/05/2023 10:3 9 AM CDT us Guido Pugh MD LABORATORY Final Result -[facility] [address] [place] [address], * Colonoscopy (01/25/2018 12:00 AM CDT) 01/25/2018 01/25/2018 Narrative [facility] TO EPIC CONVERSION - 01/25/2018 12:00 AM CDT Documented hx of procedure Procedure Note John Cesar MD - 08/15/2018 Documented hx of procedure us John Lopez Md, MD GI PROCEDURE ORDERABLES Final Result [facility] TO EPIC CONVERSION from Last 3 Months or Most Recently Relevant to Health Maintenance Additional Health Concerns Active Problems Noted Date Diagnosed Date [facility] HP OUTPATIENT PROBLEM 05/16/2019 removal of hardware and inst rumentation from [id number], 05/06 L2-3 laminectomy, L1 chevron osteotomy, L1-2 TLIF, and IPSF from [id number] 05/0605/23/2019 Insurance [employer] Advance Directives Documents on File Type Date Recorded Patient Sanitary Landfill Supervisor Expl anation Advance Directives and Livin g Will 01/25/2024 2:07 PM * DNR (Latest Code Status on File) Date Activated Date Inactivated Comments 11/08/2024 2:35 PM 11/11/2024 5:01 PM * Full Code Date Activated Date Inactivated Comments 08/07/2024 12:37 PM 11/08/2024 10:27 AM * Full Code Date Activated Date Inactivated Comments 01/14/2024 10:34 PM 01/22/2024 5:58 PM * Full Code Date Activated Date Inactivated Comments 08/20/2023 4:03 PM 08/22/2023 2:05 PM * Full Code Date Activated Date Inactivated Comments 03/21/2021 11:19 AM 03/23/2021 10:55 PM Healthcare Agents on File Name Relationship Healthcare Agent Relationshi p Communication Kathie Cook Spouse Health Care Agent Care Teams Hearing Dog Trainer Relationship Specialty Start Date End Date Guido Pugh MD [address] [place] [address] PCP - General 04/28/17 Mark Mcfarlane MD [address] [address] INTERNAL MEDICINE 07/15/23 Negrita Kaminski, RN [address] [facility] [address] [place] [id number] Registered Nurse CARE MANAGEMENT 07/07/24
--- OUTSIDE RECORDS SUMMARY | 2025-04-28 16:58 | XMS_ITS | Encounter Summary ---
Author Organization [facility] Address [address] [place] [address] Care Team Providers Care Senior Interaction Designer Name Role Phone Guido Pugh MD Primary Care Provider [phone] Encounter Details Date Type Department Care Team (Latest Contact Info) Description 11/16/2000 Outpatient Historical [facility] Izaiah Faith MD [address] [place] [address] Postlaminectomy syndrome, unspecified region (Primary Dx) Social History Tobacco Use Types Packs/Day Years Used Date Smoking Tobacco: Never Assessed Sex and Gender Information Value Date Recorded Sex Assigned at Not on file Legal Sex Male 4:35 AM RN HOME HEALTH Gender Identity Not on file Sexual Orientation Not on file documented as of this encounter Plan of Treatment Not on file documented as of this encounter Visit Diagnoses Diagnosis Postlaminectomy syndrome, unspecified region- Primary documented in this encounter Care Teams Senior Interaction Designer Relationship Specialty Start Date End Date Guido Pugh MD [address] [place] [id number] PCP - General Internal Medicine 02/25/22 documented as of this encounter
--- OUTSIDE RECORDS SUMMARY | 2025-04-28 16:58 | XMS_ITS | Encounter Summary ---
Author Organization [facility] Facility Care Team Providers Care Open Hearth Laborer Name Role Phone Guido Pugh MD Primary Care Provider [phone] Mark Mcfarlane MD Unavailable [phone] Encounter Details Date Type Department Care Team (Latest Contact Info) Description 01/12/2018 Orders Only [facility] ProviderJohn MD [address] [place] [address] Social History Tobacco Use Types Packs/Day Years Used Date Smoking Tobacco: Never Assessed Sex and Gender Information Value Date Recorded Sex Assigned at Not on file Legal Sex Male 3:19 PM REAL ESTATE MANAGER Gender Identity Not on file Sexual Orientation Not on file documented as of this encounter Plan of Treatment Not on file documented as of this encounter Procedures Procedure Name Priority Date/Time Associated Diagnosis Comments PROCEDURE - RESULT 01/12/2018 12 :00 AM CDT documented in this encounter Results * PROCEDURE - RESULT (01/12/2018 12:00 AM CDT) Narrative 01/12/2018 12:00 AM CDT Ordered by an unspecified provider. us Historical Provider Final Res ult documented in this encounter Visit Diagnoses Not on filedocumented in this encounter Additional Health Concerns Infection Onset Date Last Indicated Resolved Time MRSA Comment:h/o staph infecion 04/25/2020 04/24/2020 05/29/2021 5: 00 AM CDT documented as of this encounter Care Teams Open Hearth Laborer Relationship Specialty Start Date End Date Guido Pugh MD [address] [place] [address] PCP - General 09/13/17 Mark Mcfarlane MD [address] [place] [address] Servicenow Administrator Developer Cardiology 05/31/19 documented as of this encounter
--- OUTSIDE RECORDS SUMMARY | 2025-04-28 16:58 | XMS_ITS | Encounter Summary ---
Author Organization [facility] Facility Care Team Providers Care Loom Mechanic Name Role Phone Guido Pugh MD Primary Care Provider Mark Mcfarlane MD Unavailable [phone] Encounter Details Date Type Department Care Team (Latest Contact Info) Description 12/25/2017 Orders Only [facility] CLINCONV ProviderJohn MD [address] [place] [address] Social History Tobacco Use Types Packs/Day Years Used Date Smoking Tobacco: Never Assessed Sex and Gender Information Value Date Recorded Sex Assigned at Not on file Legal Sex Male 3:19 PM CONSERVATION AGENT Gender Identity Not on file Sexual Orientation Not on file documented as of this encounter Plan of Treatment Not on file documented as of this encounter Procedures Procedure Name Priority Date/Time Associated Diagnosis Comments PROCEDURE - RESULT 12/25/2017 12 :00 AM CDT PROCEDURE - RESULT 12/25/2017 12 :00 AM CDT documented in this encounter Results * PROCEDURE - RESULT (12/25/2017 12:00 AM CDT) Narrative 12/25/2017 12:00 AM CDT Ordered by an unspecified provider. Historical Provider Final Res ult * PROCEDURE - RESULT (12/25/2017 12:00 AM CDT) Narrative 12/25/2017 12:00 AM CDT Ordered by an unspecified provider. Historical Provider MD Final Res ult documented in this encounter Visit Diagnoses Not on filedocumented in this encounter Additional Health Concerns Infection Onset Date Last Indicated Resolved Time MRSA Comment:h/o staph infecion 04/25/2020 04/24/2020 05/29/2021 5: 00 AM CDT documented as of this encounter Care Teams Loom Mechanic Relationship Specialty Start Date End Date Guido Pugh MD [address] [place] [address] PCP - General 09/13/17 Mark Mcfarlane MD [address] [address] Operations Recruiter Cardiology 05/31/19 documented as of this encounter
--- OUTSIDE RECORDS SUMMARY | 2025-04-28 16:58 | XMS_ITS | Encounter Summary ---
Author Organization [facility] Facility Care Team Providers Care Munitions Factory Worker Name Role Phone Guido Pugh MD Primary Care Provider [phone] Mark Mcfarlane MD Unavailable [phone] Encounter Details Date Type Department Care Team (Latest Contact Info) Description 08/02/2017 Orders Only [facility] CLINCONV ProviderJohn MD [address] [place] [address] Social History Tobacco Use Types Packs/Day Years Used Date Smoking Tobacco: Never Assessed Sex and Gender Information Value Date Recorded Sex Assigned at Not on file Legal Sex Male 3:19 PM KETTLE ROOM HELPER Gender Identity Not on file Sexual Orientation Not on file documented as of this encounter Plan of Treatment Not on file documented as of this encounter Procedures Procedure Name Priority Date/Time Associated Diagnosis Comments CARDIOLOGY REPORT 08/02/2017 12: 00 AM CDT documented in this encounter Results * CARDIOLOGY REPORT (08/02/2017 12:00 AM CDT) Anatomical Region Laterality Modality Other Narrative 08/02/2017 12:00 AM CDT Ordered by an unspecified provider. Historical Provider [facility] JENISE JONES Final Result documented in this encounter Visit Diagnoses Not on filedocumented in this encounter Additional Health Concerns Infection Onset Date Last Indicated Resolved Time MRSA Comment:h/o staph infecion 04/25/2020 04/24/2020 05/29/2021 5: 00 AM CDT documented as of this encounter Care Teams Munitions Factory Worker Relationship Specialty Start Date End Date Guido Pugh MD [address] [place] [address] PCP - General 09/13/17 Mark Mcfarlane MD [address] [place] [address] Electronic Security Technician Cardiology 05/31/19 documented as of this encounter
--- OUTSIDE RECORDS SUMMARY | 2025-04-28 16:58 | XMS_ITS | Encounter Summary ---
Author Organization [facility] Address [address] [place] [address] Care Team Providers Care Oliver Filter Operator Name Role Phone Guido Pugh MD Primary Care Provider [phone] Encounter Details Date Type Department Care Team (Late st Contact Info) Description 05/15/1999 Outpatient Historical [facility] DEPT Jeffry Cole Lumbago (Primary Dx) Social History Tobacco Use Types Packs/Day Years Used Date Smoking Tobacco: Never Assessed Sex and Gender Information Value Date Recorded Sex Assigned at Not on file Legal Sex Male 4:35 AM COMMERCIAL CREDIT HEAD Gender Identity Not on file Sexual Orientation Not on file documented as of this encounter Plan of Treatment Not on file documented as of this encounter Visit Diagnoses Diagnosis Lumbago- Primary documented in this encounter Care Teams Oliver Filter Operator Relationship Specialty Start Date End Date Guido Pugh MD [address] [place] [address] PCP - General Internal Medicine 02/25/22 documented as of this encounter
--- OUTSIDE RECORDS SUMMARY | 2025-04-28 16:58 | XMS_ITS | Encounter Summary ---
Author Organization [facility] Facility Care Team Providers Care Party Plan Dealer Name Role Phone Guido Pugh MD Primary Care Provider [phone] Mark Mcfarlane MD Unavailable [phone] Encounter Details Date Type Department Care Team (Latest Contact Info) Description 06/04/2017 Orders Only [facility] CLINCONV ProviderJohn MD [address] [place] [address] Social History Tobacco Use Types Packs/Day Years Used Date Smoking Tobacco: Never Assessed Sex and Gender Information Value Date Recorded Sex Assigned at Not on file Legal Sex Male 3:19 PM COMMERCIAL LINES ASSISTANT Gender Identity Not on file Sexual Orientation Not on file documented as of this encounter Plan of Treatment Not on file documented as of this encounter Procedures Procedure Name Priority Date/Time Associated Diagnosis Comments CARDIOLOGY REPORT 06/04/2017 12: 00 AM CDT documented in this encounter Results * CARDIOLOGY REPORT (06/04/2017 12:00 AM CDT) Anatomical Region Laterality Modality Other Narrative 06/04/2017 12:00 AM CDT Ordered by an unspecified provider. Historical Provider [facility] JENISE JONES Final Result documented in this encounter Visit Diagnoses Not on filedocumented in this encounter Additional Health Concerns Infection Onset Date Last Indicated Resolved Time MRSA Comment:h/o staph infecion 04/25/2020 04/24/2020 05/29/2021 5: 00 AM CDT documented as of this encounter Care Teams Party Plan Dealer Relationship Specialty Start Date End Date Guido Pugh MD [address] [place] [address] PCP - General 09/13/17 Mark Mcfarlane MD [address] [address] Raw Products Director Cardiology 05/31/19 documented as of this encounter
--- OUTSIDE RECORDS SUMMARY | 2025-04-28 16:58 | XMS_ITS | Encounter Summary ---
Author Organization [facility] Address [address] [place] [address] Care Team Providers Care Tone Cabinet Assembler Name Role Phone Guido Pugh MD Primary Care Provider [phone] Encounter Details Date Type Department Care Team (Latest Contact Info) Description 02/20/2004 Outpatient Historical [facility] PATIENT IN A BED Jeffry Cole Regan CERVICAL SPONDYLOSIS (Primary Dx) Social History Tobacco Use Types Packs/Day Years Used Date Smoking Tobacco: Never Assessed Sex and Gender Information Value Date Recorded Sex Assigned at Not on file Legal Sex Male 4:35 AM LANDING SIGNAL OFFICER Gender Identity Not on file Sexual Orientation Not on file documented as of this encounter Plan of Treatment Not on file documented as of this encounter Visit Diagnoses Diagnosis Cervical spondylosis without myelopathy- Primary documented in this encounter Care Teams Tone Cabinet Assembler Relationship Specialty Start Date End Date Guido Pugh MD [address] [place] [address] PCP - General Internal Medicine 02/25/22 documented as of this encounter
--- OUTSIDE RECORDS SUMMARY | 2025-04-28 16:58 | XMS_ITS | Encounter Summary ---
Author Organization [facility] Address [address] [place] [address] Care Team Providers Care Child Welfare Social Worker Name Role Phone Guido Pugh MD Primary Care Provider [phone] Encounter Details Date Type Department Care Team (Latest Contact Info) Description 07/08/1999 Inpatient Historical [facility] Izaiah Faith MD [address] [place] [address] Jeffry Cole Postlaminectomy syndrome, lumbar region (Primary Dx) Social History Tobacco Use Types Packs/Day Years Used Date Smoking Tobacco: Never Assessed Sex and Gender Information Value Date Recorded Sex Assigned at Not on file Legal Sex Male 4:35 AM NET DEVELOPER Gender Identity Not on file Sexual Orientation Not on file documented as of this encounter Plan of Treatment Not on file documented as of this encounter Visit Diagnoses Diagnosis Postlaminectomy syndrome, lumbar region- Primary documented in this encounter Care Teams Child Welfare Social Worker Relationship Specialty Start Date End Date Guido Pugh MD [address] [place] [address] PCP - General Internal Medicine 02/25/22 documented as of this encounter
--- OUTSIDE RECORDS SUMMARY | 2025-04-28 16:58 | XMS_ITS | Encounter Summary ---
Author Organization [facility] Address [address] [place] [address] Care Team Providers Care Assembly Line Leader Name Role Phone Guido Pugh MD Primary Care Provider [phone] Encounter Details Date Type Department Care Team (Latest Contact Info) Description 08/26/1999 Outpatient Historical [facility] Jeffry Cole Mg Arthrodesis status (Primary Dx) Social History Tobacco Use Types Packs/Day Years Used Date Smoking Tobacco: Never Assessed Sex and Gender Information Value Date Recorded Sex Assigned at Not on file Legal Sex Male 4:35 AM PROPOSAL DEVELOPMENT MANAGER Gender Identity Not on file Sexual Orientation Not on file documented as of this encounter Plan of Treatment Not on file documented as of this encounter Visit Diagnoses Diagnosis Arthrodesis status- Primary documented in this encounter Care Teams Assembly Line Leader Relationship Specialty Start Date End Date Guido Pugh MD [address] [place] [address] PCP - General Internal Medicine 02/25/22 documented as of this encounter
--- OUTSIDE RECORDS SUMMARY | 2025-04-28 16:58 | XMS_ITS | Encounter Summary ---
Author Organization [facility] Address [address] [place] [address] Care Team Providers Care Correctional Substance Abuse Counselor Name Role Phone Guido Pugh MD Primary Care Provider [phone] Encounter Details Date Type Department Care Team (Latest Contact Info) Description 07/27/1999 Inpatient Historical [facility] PATIENT IN A BED Izaiah Faith MD [address] [place] [address] Other postoperative infection (Primary Dx) Social History Tobacco Use Types Packs/Day Years Used Date Smoking Tobacco: Never Assessed Sex and Gender Information Value Date Recorded Sex Assigned at Not on file Legal Sex Male 4:35 AM COMMISSARY SUPERINTENDENT Gender Identity Not on file Sexual Orientation Not on file documented as of this encounter Plan of Treatment Not on file documented as of this encounter Visit Diagnoses Diagnosis Other postoperative infection- Primary documented in this encounter Care Teams Correctional Substance Abuse Counselor Relationship Specialty Start Date End Date Guido Pugh MD [address] [place] [address] PCP - General Internal Medicine 02/25/22 documented as of this encounter
--- OUTSIDE RECORDS SUMMARY | 2025-04-28 16:58 | XMS_ITS | Encounter Summary ---
Author Organization [facility] Facility Care Team Providers Care Pt Sitter Name Role Phone Guido Pugh MD Primary Care Provider [phone] Mark Mcfarlane MD Unavailable [phone] Encounter Details Date Type Department Care Team (Latest Contact Info) Description 09/02/2017 Orders Only [facility] CLINCONV ProviderJohn MD [address] [place] [address] Social History Tobacco Use Types Packs/Day Years Used Date Smoking Tobacco: Never Assessed Sex and Gender Information Value Date Recorded Sex Assigned at Not on file Legal Sex Male 3:19 PM COPPER MINER Gender Identity Not on file Sexual Orientation Not on file documented as of this encounter Plan of Treatment Not on file documented as of this encounter Procedures Procedure Name Priority Date/Time Associated Diagnosis Comments CARDIOLOGY REPORT 09/02/2017 12: 00 AM COPPER MINER documented in this encounter Results * CARDIOLOGY REPORT (09/02/2017 12:00 AM COPPER MINER) Anatomical Region Laterality Modality Other Narrative 09/02/2017 12:00 AM COPPER MINER Ordered by an unspecified provider. Historical Provider [facility] JENISE JONES Final Result documented in this encounter Visit Diagnoses Not on filedocumented in this encounter Additional Health Concerns Infection Onset Date Last Indicated Resolved Time MRSA Comment:h/o staph infecion 04/25/2020 04/24/2020 05/29/2021 5: 00 AM CDT documented as of this encounter Care Teams Pt Sitter Relationship Specialty Start Date End Date Guido Pugh MD [address] [place] [address] PCP - General 09/13/17 Mark Mcfarlane MD [address] [place] [address] General I Farmworker Cardiology 05/31/19 documented as of this encounter
--- OUTSIDE RECORDS SUMMARY | 2025-04-28 16:58 | XMS_ITS | Encounter Summary ---
Author Organization [facility] Address [address] [place] [address] Care Team Providers Care Sewing Machine Operator Semiautomatic Name Role Phone Guido Pugh MD Primary Care Provider [phone] Encounter Details Date Type Department Care Team (Late st Contact Info) Description 12/15/2003 Outpatient Historical [facility] [place] [address] [place] [address] CERVICAL SPONDYLOSIS (Primary Dx) Social History Tobacco Use Types Packs/Day Years Used Date Smoking Tobacco: Never Assessed Sex and Gender Information Value Date Recorded Sex Assigned at Not on file Legal Sex Male 4:35 AM PIANO BUILDER Gender Identity Not on file Sexual Orientation Not on file documented as of this encounter Plan of Treatment Not on file documented as of this encounter Visit Diagnoses Diagnosis Cervical spondylosis without myelopathy- Primary documented in this encounter Care Teams Sewing Machine Operator Semiautomatic Relationship Specialty Start Date End Date Guido Pugh MD [address] [place] [address] PCP - General Internal Medicine 02/25/22 documented as of this encounter
--- OUTSIDE RECORDS SUMMARY | 2025-04-28 16:58 | XMS_ITS | Encounter Summary ---
Author Organization [employer] Address [address] [place] [address] Care Team Providers Care Investor Relations Associate Name Role Phone Guido Pugh MD Primary Care Provider [phone] Encounter Details Date Type Department Care Team (Latest Contact Info) Description 01/19/2004 Outpatient Historical [facility] PATIENT IN A BED Gregory Staton MD [address] [place] [address] Jeffry Cole CERVICAL SPINAL STENOSIS (Primary Dx) Social History Tobacco Use Types Packs/Day Years Used Date Smoking Tobacco: Never Assessed Sex and Gender Information Value Date Recorded Sex Assigned at Not on file Legal Sex Male 4:35 AM MANAGER BUSINESS OPERATIONS Gender Identity Not on file Sexual Orientation Not on file documented as of this encounter Plan of Treatment Not on file documented as of this encounter Visit Diagnoses Diagnosis Spinal stenosis in cervical region- Primary documented in this encounter Care Teams Investor Relations Associate Relationship Specialty Start Date End Date Guido Pugh MD [address] [place] [address] PCP - General Internal Medicine 02/25/22 documented as of this encounter
--- OUTSIDE RECORDS SUMMARY | 2025-04-28 16:58 | XMS_ITS | Encounter Summary ---
Author Organization [facility] Address [address] [place] [address] Care Team Providers Care Poultry Farm Laborer Name Role Phone Guido Pugh MD Primary Care Provider [phone] Encounter Details Date Type Department Care Team (Latest Contact Info) Description 12/12/1999 Outpatient Historical [facility] Izaiah Faith MD [address] [place] [address] Disorders of sacrum (Primary Dx) Social History Tobacco Use Types Packs/Day Years Used Date Smoking Tobacco: Never Assessed Sex and Gender Information Value Date Recorded Sex Assigned at Not on file Legal Sex Male 4:35 AM RUBBER MOLD MAKER Gender Identity Not on file Sexual Orientation Not on file documented as of this encounter Plan of Treatment Not on file documented as of this encounter Visit Diagnoses Diagnosis Disorders of sacrum- Primary documented in this encounter Care Teams Poultry Farm Laborer Relationship Specialty Start Date End Date Guido Pugh MD [address] [place] [address] PCP - General Internal Medicine 02/25/22 documented as of this encounter
--- OUTSIDE RECORDS SUMMARY | 2025-04-28 16:58 | XMS_ITS | Encounter Summary ---
Author Organization [facility] Facility Care Team Providers Care Psychiatric Rn Name Role Phone Guido Pugh MD Primary Care Provider [phone] Mark Mcfarlane MD Unavailable [phone] Encounter Details Date Type Department Care Team (Latest Contact Info) Description 03/11/2018 Orders Only [facility] CLINCONV ProviderJohn MD [address] [place] [address] Social History Tobacco Use Types Packs/Day Years Used Date Smoking Tobacco: Never Assessed Sex and Gender Information Value Date Recorded Sex Assigned at Not on file Legal Sex Male 3:19 PM FOREST PATHOLOGY ASSOCIATE PROFESSOR Gender Identity Not on file Sexual Orientation Not on file documented as of this encounter Plan of Treatment Not on file documented as of this encounter Procedures Procedure Name Priority Date/Time Associated Diagnosis Comments PROCEDURE - RESULT 03/11/2018 12 :00 AM CDT documented in this encounter Results * PROCEDURE - RESULT (03/11/2018 12:00 AM CDT) Narrative 03/11/2018 12:00 AM CDT Ordered by an unspecified provider. us Historical Provider Final Res ult documented in this encounter Visit Diagnoses Not on filedocumented in this encounter Additional Health Concerns Infection Onset Date Last Indicated Resolved Time MRSA Comment:h/o staph infecion 04/25/2020 04/24/2020 05/29/2021 5: 00 AM CDT documented as of this encounter Care Teams Psychiatric Rn Relationship Specialty Start Date End Date Guido Pugh MD [address] [place] [address] PCP - General 09/13/17 Mark Mcfarlane MD [address] [place] [address] Cutting Machine Tender Helper Cardiology 05/31/19 documented as of this encounter
--- OUTSIDE RECORDS SUMMARY | 2025-04-28 16:58 | XMS_ITS | Encounter Summary ---
Author Organization [facility] Address [address] [place] [address] Care Team Providers Care Social Media Analyst Name Role Phone Guido Pugh MD Primary Care Provider [phone] Encounter Details Date Type Department Care Team (Late st Contact Info) Description 11/18/2007 Outpatient Historical [facility] Federico Martinez MD NO ADDRESS ON FILE Social History Tobacco Use Types Packs/Day Years Used Date Smoking Tobacco: Never Assessed Sex and Gender Information Value Date Recorded Sex Assigned at Not on file Legal Sex Male 4:35 AM BOOM SUPERVISOR Gender Identity Not on file Sexual Orientation Not on file documented as of this encounter Plan of Treatment Not on file documented as of this encounter Visit Diagnoses Not on filedocumented in this encounter Care Teams Social Media Analyst Relationship Specialty Start Date End Date Guido Pugh MD [address] [place] [address] PCP - General Internal Medicine 02/25/22 documented as of this encounter
--- OUTSIDE RECORDS SUMMARY | 2025-04-28 16:58 | XMS_ITS | Encounter Summary ---
Author Organization [facility] Address [address] [place] [address] Care Team Providers Care Forensic Structural Engineer Name Role Phone Guido Pugh MD Primary Care Provider [phone] Encounter Details Date Type Department Care Team (Latest Contact Info) Description 04/03/2004 Outpatient Historical [facility] Jeffry Cole Mg ARTHRODESIS STATUS (Primary Dx) Social History Tobacco Use Types Packs/Day Years Used Date Smoking Tobacco: Never Assessed Sex and Gender Information Value Date Recorded Sex Assigned at Not on file Legal Sex Male 4:35 AM COTTON FACTOR Gender Identity Not on file Sexual Orientation Not on file documented as of this encounter Plan of Treatment Not on file documented as of this encounter Visit Diagnoses Diagnosis Arthrodesis status- Primary documented in this encounter Care Teams Forensic Structural Engineer Relationship Specialty Start Date End Date Guido Pugh MD [address] [place] [address] PCP - General Internal Medicine 02/25/22 documented as of this encounter
== END 2025-04-28 16:45 | disposition home or self-care (01) ==
PROVIDERS: PCP Internal Medicine; Visit Provider Orthopaedic Surgery Orthopaedic Surgery of the Spine
DX: M47.12 Other spondylosis with myelopathy, cervical region (principal); G95.89 Other specified diseases of spinal cord; M43.22 Fusion of spine, cervical region; Z98.1 Arthrodesis status
CPT/HCPCS: 72125